=== PATIENT | male | born 1950 | race Caucasian/White ===

== ENCOUNTER → 2020-03-18 11:02 | Outpatient (BNVA) | payer MEDICARE, SELFPAY | PROVIDERS: PCP Internal Medicine; Referring Provider Internal Medicine; Visit Provider Nurse Practitioner Gerontology | DX: E11.42 Type 2 diabetes mellitus with diabetic polyneuropathy (principal); E11.3599 Type 2 diabetes mellitus with proliferative diabetic retinopathy without macular edema, unspecified eye; E11.21 Type 2 diabetes mellitus with diabetic nephropathy; R80.8 Other proteinuria; E78.5 Hyperlipidemia, unspecified; I10 Essential (primary) hypertension; Z79.4 Long term (current) use of insulin | CPT/HCPCS: 82947; 99214 ==

== ENCOUNTER → 2020-04-17 13:56 | Outpatient (BNVA) | payer MEDICARE, SELFPAY | PROVIDERS: PCP Internal Medicine; Visit Provider Urology | DX: R35.1 Nocturia (principal); E11.29 Type 2 diabetes mellitus with other diabetic kidney complication; E11.42 Type 2 diabetes mellitus with diabetic polyneuropathy; E11.3599 Type 2 diabetes mellitus with proliferative diabetic retinopathy without macular edema, unspecified eye; E78.5 Hyperlipidemia, unspecified; I10 Essential (primary) hypertension; E55.9 Vitamin D deficiency, unspecified; Z88.8 Allergy status to other drugs, medicaments and biological substances | CPT/HCPCS: 81002; 99202 ==

== ENCOUNTER → 2020-05-15 14:43 | Outpatient (BNVA) | payer MEDICARE, SELFPAY | PROVIDERS: PCP Internal Medicine; Visit Provider Urology | DX: Z76.89 Persons encountering health services in other specified circumstances (principal) | CPT/HCPCS: Q3014 ==

== ENCOUNTER → 2020-06-03 11:09 | Outpatient (BNVA) | payer MEDICARE, SELFPAY | PROVIDERS: PCP Internal Medicine; Visit Provider Nurse Practitioner Gerontology | DX: E11.42 Type 2 diabetes mellitus with diabetic polyneuropathy (principal); E11.29 Type 2 diabetes mellitus with other diabetic kidney complication; R80.9 Proteinuria, unspecified; E78.5 Hyperlipidemia, unspecified; I10 Essential (primary) hypertension; Z79.4 Long term (current) use of insulin | CPT/HCPCS: 82947; 99212 ==

== ENCOUNTER → 2020-08-22 09:38 | Outpatient (BNVA) | payer MEDICARE, SELFPAY | PROVIDERS: PCP Internal Medicine; Visit Provider Nurse Practitioner Gerontology | DX: Z13.89 Encounter for screening for other disorder (principal) | CPT/HCPCS: Q3014 ==

== ENCOUNTER 2020-09-05 13:45 | Outpatient (REF) | payer MEDICARE, SELFPAY ==
[2020-09-05 16:36] LABS: Estimated Average Glucose 174 mg/dL; Hemoglobin A1c % 7.7 %
[2020-09-05 16:52] LABS: Alanine Aminotransferase 17 U/L (0-40); Albumin Level 4.5 g/dL (3.5-5.0); Alkaline Phosphatase 126 U/L (39-117); Anion Gap 15 (12-20); Aspartate Amino Transferase 17 U/L (5-37); Bilirubin Total 0.6 mg/dL (0.0-1.0); Blood Urea Nitrogen 16 mg/dL (9-16); Calcium 8.7 mg/dL (8.4-10.2); Carbon Dioxide 26 mmol/L (22-29); Chloride 106 mmol/L (96-108); Cholesterol 132 mg/dL; Estimated Glomerular Filt Rate > 60; Glucose Fasting 112 mg/dL (60-99); HDL Cholesterol 39 mg/dL; LDL Cholesterol Calculated 71 mg/dl; Potassium 4.2 mmol/L (3.3-5.1); Sodium 143 mmol/L (135-145); Triglycerides 110 mg/dL
[2020-09-05 16:53] LABS: Creatinine Urine 192.05 mg/dL; Microalbum/Creatinine Ratio Ur 27.5 ug/mg cr
[2020-09-05 17:14] LABS: Prostate Specific Antigen 0.83 ng/mL (<0.05-4.0)
== END 2020-09-05 13:46 | disposition home or self-care (01) ==
LOC: HO.HMGCLDS 13:45
PROVIDERS: Urology; PCP Internal Medicine; Visit Provider Nurse Practitioner Gerontology
DX: E11.42 Type 2 diabetes mellitus with diabetic polyneuropathy (principal); R35.1 Nocturia; Z79.4 Long term (current) use of insulin
CPT/HCPCS: 36415; 80053; 80061; 82043; 83036; 84153

== ENCOUNTER 2020-09-11 13:27 | Outpatient (REF) | payer MEDICARE, SELFPAY ==
[2020-09-15 14:21] LABS: Alk.Phos Iso. Macrohepatic 0 % (<=0); Alk.Phos Isoenzymes Bone 36 % (28-66); Alk.Phos Isoenzymes Intest 0 % (1-24); Alk.Phos Isoenzymes Liver 64 % (25-69); Alk.Phos Isoenzymes Placental 0 % (<=0); Alk.Phos Isoenzymes Total 106 U/L (35-144)
== END 2020-09-11 13:28 | disposition home or self-care (01) ==
LOC: HO.HMGCLDS 13:27
PROVIDERS: PCP Internal Medicine; Visit Provider Nurse Practitioner Gerontology
DX: R74.8 Abnormal levels of other serum enzymes (principal)
CPT/HCPCS: 36415; 84080

== ENCOUNTER → 2020-11-26 11:22 | Outpatient (BNVA) | payer MEDICARE, SELFPAY | PROVIDERS: PCP Internal Medicine; Visit Provider Nurse Practitioner Gerontology | DX: E11.42 Type 2 diabetes mellitus with diabetic polyneuropathy (principal); E11.29 Type 2 diabetes mellitus with other diabetic kidney complication; E78.5 Hyperlipidemia, unspecified; R80.8 Other proteinuria; I10 Essential (primary) hypertension; Z79.4 Long term (current) use of insulin | CPT/HCPCS: 82947; 99212 ==

== ENCOUNTER → 2021-01-15 14:50 | Outpatient (BNVA) | payer MEDICARE, SELFPAY | PROVIDERS: PCP Internal Medicine; Visit Provider Nurse Practitioner Gerontology | DX: E11.42 Type 2 diabetes mellitus with diabetic polyneuropathy (principal); E11.29 Type 2 diabetes mellitus with other diabetic kidney complication; E78.5 Hyperlipidemia, unspecified; I10 Essential (primary) hypertension; R80.8 Other proteinuria; Z79.4 Long term (current) use of insulin | CPT/HCPCS: 82947; 99212 ==

== ENCOUNTER → 2021-05-16 09:27 | Outpatient (BNVA) | payer MEDICARE, SELFPAY | PROVIDERS: PCP Internal Medicine; Visit Provider Urology | DX: R35.1 Nocturia (principal); N32.0 Bladder-neck obstruction | CPT/HCPCS: 51798; 99212 ==

== ENCOUNTER 2021-05-28 13:06 | Outpatient (REF) | payer MEDICARE, SELFPAY ==
[2021-05-28 14:08] LABS: Estimated Average Glucose 169 mg/dL; Hemoglobin A1c % 7.5 %
== END 2021-05-28 13:07 | disposition home or self-care (01) ==
LOC: HO.HMGCLDS 13:06
PROVIDERS: PCP Internal Medicine; Visit Provider Nurse Practitioner Gerontology
DX: E11.42 Type 2 diabetes mellitus with diabetic polyneuropathy (principal); Z79.4 Long term (current) use of insulin
CPT/HCPCS: 36415; 83036

== ENCOUNTER → 2021-07-16 10:55 | Outpatient (BNVA) | payer MEDICARE, SELFPAY | PROVIDERS: PCP Internal Medicine; Visit Provider Nurse Practitioner Gerontology | DX: E11.42 Type 2 diabetes mellitus with diabetic polyneuropathy (principal); E11.29 Type 2 diabetes mellitus with other diabetic kidney complication; E78.5 Hyperlipidemia, unspecified; I10 Essential (primary) hypertension; R80.8 Other proteinuria; Z79.4 Long term (current) use of insulin | CPT/HCPCS: 82947; 99212 ==

== ENCOUNTER → 2021-08-14 09:24 | Outpatient (BNVA) | payer MEDICARE, SELFPAY | PROVIDERS: PCP Internal Medicine; Referring Provider Internal Medicine; Visit Provider Internal Medicine Cardiovascular Disease | DX: R07.89 Other chest pain (principal); R00.2 Palpitations | CPT/HCPCS: 93005; 99202 ==

== ENCOUNTER 2021-09-02 11:27 | Outpatient (REF) | payer MEDICARE, SELFPAY | END 2021-09-02 11:28 | disposition home or self-care (01) | LOC: HO.US 11:27 | PROVIDERS: PCP Internal Medicine; Visit Provider Urology | DX: Z13.89 Encounter for screening for other disorder (principal) ==

== ENCOUNTER 2021-09-10 11:20 | Outpatient (REF) | payer MEDICARE, SELFPAY ==
--- NOTE | ~2021-09-10 | US_ITS ---
EXAMINATION: US PELVIS LIMITED (BLADDER) CLINICAL INFORMATION: Poor urinary stream. COMPARISON: CT abdomen and pelvis without contrast 09/18/2019. TECHNIQUE: Real-time imaging of the bladder. FINDINGS: BLADDER: Well distended and normal. Bilateral ureteral jets are demonstrated. Prevoid bladder volume is 364 mL. Postvoid bladder volume is 52.3 mL. ADDITIONAL FINDINGS: The prostate measures 19.7 mL. US/US bladder IMPRESSION: Small postvoid residual bladder volume with normal bilateral ureteral jets.
== END 2021-09-10 11:21 | disposition home or self-care (01) ==
LOC: HO.HMGCX 11:20
PROVIDERS: PCP Internal Medicine; Visit Provider Urology
DX: R39.12 Poor urinary stream (principal); R35.1 Nocturia
CPT/HCPCS: 76857

== ENCOUNTER → 2021-09-16 09:48 | Outpatient (BNVA) | payer MEDICARE, SELFPAY | PROVIDERS: PCP Internal Medicine; Visit Provider Urology | DX: R35.1 Nocturia (principal); N32.0 Bladder-neck obstruction | CPT/HCPCS: Q3014 ==

== ENCOUNTER → 2021-09-23 08:25 | Outpatient (REF) | payer MEDICARE, SELFPAY ==
--- NOTE | 2021-09-23 08:31 | HM_ITS ---
Conclusion: 1. Patient was monitored for total period of 11 days and 3 hours 2. Baseline rhythm is normal sinus with average heart of 77 beats per minute 3. No significant pauses or bradycardia 4. One 3 beat episode of VT noted 5. Six short episodes of supraventricular tachycardia longest lasting 8 beats 6. Rare PVCs and PACs 7. No patient reported events MTDD
--- NOTE | 2021-09-23 08:31 | CA_ITS ---
Transthoracic Echocardiogram Patient (Last, First, Middle): Davin Baca J Gender: Male Date of : 1950 Age: 71 Procedure Date: 09/23/2021 Procedure Type: Transthoracic Echocardiogram Location: OP Height: 182.88 cm Weight: 92.99 kg BSA: 2.15 m2 Heart Rate: bpm BP: 146 / 70 mmHg Communication Instructor: EMERITA Referring MD: Federico Paris MD Symptoms: R00.2 - Palpitations Study Quality: Fair ECG Rhythm: Sinus Conclusions: - The left ventricular systolic function is normal. The visually estimated ejection fraction is between 65-70%. - No obvious valvular pathology seen on this study. Findings Left Ventricle Normal left ventricular cavity size. There is mildly increased left ventricular wall thickness. The left ventricular systolic function is normal. The visually estimated ejection fraction is between 65-70%. There is no evidence of regional wall motion abnormalities. Diastolic function is normal for age. Right Ventricle Normal right ventricular cavity size and systolic function. Atria Both atria are normal in size. Aortic Valve There is a normal trileaflet aortic valve. There is no aortic valve stenosis. There is no aortic valve regurgitation. Mitral Valve There is mild anterior mitral leaflet thickening. There is trace mitral valve regurgitation. There is no mitral valve stenosis. Pulmonic Valve The pulmonic valve is likely normal. Tricuspid Valve Normal tricuspid valve structure. There is trace tricuspid valve regurgitation. The pulmonary artery systolic pressure is normal. Great Vessels The aortic annulus, sinuses of valsalva, and asc aorta are normal in size. Venous The inferior vena cava is mildly dilated and collapses greater than 50% with inspiration. Pericardium/Pleural There is no evidence of pericardial effusion. Prior Study Comparison No prior study available for comparison. Recommendations, Care & Conclusions No obvious valvular pathology seen on this study. Measurements 2D Linear Measurements IVSd: 1.26 0.6-0.9/0.6-1.0 cm LVIDd: 4.61 3.9-5.3/4.2-5.9 cm LVIDd Index: 2.14 2.4-3.2/2.2-3.1 cm/m2 LVIDs: 2.76 2.0-3.6 cm LVPWd: 1.07 0.7-1.1 cm Ao Root: 3.80 2.1-3.5 cm LA Diam: 3.40 2.7-3.8/3.0-4.0 cm LAIDs Index: 1.58 1.5-2.3 cm/m2 LV Mass: 245.73 67-162/88-224 g LV Mass Index: 114.30 43-95/49-115 g/m2 LVOT Diam: 2.10 3.0+(-)1.3 cm 2D Systolic Function EF 4C: 63.30 >55% Mitral Valve MV Pk E: 0.86 MV PK A: 0.91 MV Decel Time: 250.00 E/A: 0.90 E'Lateral: 7.29 E'Medial: 6.96 E/E' Med: 12.30 E/E' Lat: 11.80 PHT: 73.00 MVA PHT: 3.01 Decel Canadian: 3.43 Aortic Valve AoV Pk Ken: 1.14 AoV Pk Grad: 5.00 LVOT LVOT Pk Ken: 1.04 LVOT Mn Ken: 0.69 LVOT VTI: 0.25 LVOT Pk Grad: 4.00 LVOT Mn Grad: 2.00 LVOT Diam: 2.10 LVOT Area: 3.46 Diastolic Function MV Pk E: 0.86 MV Pk A: 0.91 E/A: 0.90 E'Medial: 6.96 E/E' Med: 12.30 E' Laterial: 7.29 E/E' Lat: 11.80 Right Ventricle TAPSE (mm): 2.67 TVS' Ken: 15.60 Tricuspid Valve RA Press: 8.00 Great Vessels Aorta Ao Root-2D: 3.80 2.0-3.7 cm Sinus of Valsalva: 3.80 2.0-3.5 cm Ao Asc: 3.60 2.1-3.4 cm Updated in Other Vendor System with Status of Final Nico Virgen MD electronically signed on 09/23/2021 12:25:03 PM with status of Final
== END ==
LOC: HO.CARD 08:25
PROVIDERS: Visit Provider Internal Medicine Cardiovascular Disease
DX: R00.2 Palpitations (principal)
CPT/HCPCS: 93246; 93306

== ENCOUNTER → 2021-09-24 07:58 | Outpatient (REF) | payer MEDICARE, SELFPAY ==
--- NOTE | 2021-09-24 08:02 | CA_ITS ---
Acquisition Time: 2021-09-24 08:22:15 Total Exercise Time: 00:03:07 Test Indications: Chest Pain Medications: ALFUZOSIN ASA DICYCLOMINE LOSARTAN METFORMIN REPAGLINIDE SIMVASTATIN Protocol: CHIP Max HR: 131 BPM 87% of Pred: 150 BPM Max BP: 160/070 mmHG Max Work Load: 4.7 METS Exercise stress test with exercise 3 min 7 sec of Chip protocol, achieving 87% MPHR, 4.6 METs, with moderate shortness of breath and fatigue, no chest or axilla discomfort, with request to stop exercise, with isolated PVC and one ventricular cuplet, with normotensive response to exercise, with borderline ST depression inferiorly at peak and in recovery. His shortness of breath resolved in recovery. Will order a pharmacological nuclear stress test for further evaluation. Test reviewed with Dr Hughes. Referred By: Federico Paris Overread By: ELODIA CANTU
== END ==
LOC: HO.CARD 07:58
PROVIDERS: Visit Provider Internal Medicine Cardiovascular Disease
DX: R07.89 Other chest pain (principal)
CPT/HCPCS: 93017

== ENCOUNTER 2021-09-30 12:20 | Outpatient (REF) | payer MEDICARE, SELFPAY ==
[2021-09-30 14:13] LABS: Alanine Aminotransferase 17 U/L (0-40); Albumin Level 4.3 g/dL (3.5-5.0); Alkaline Phosphatase 114 U/L (39-117); Anion Gap 15 (12-20); Aspartate Amino Transferase 16 U/L (5-37); Bilirubin Total 0.4 mg/dL (0.0-1.0); Blood Urea Nitrogen 19 mg/dL (9-16); Calcium 9.5 mg/dL (8.4-10.2); Carbon Dioxide 23 mmol/L (22-29); Chloride 105 mmol/L (96-108); Cholesterol 123 mg/dL; Estimated Glomerular Filt Rate 54; Glucose Fasting 169 mg/dL (60-99); HDL Cholesterol 38 mg/dL; LDL Cholesterol Calculated 67 mg/dl; Potassium 4.6 mmol/L (3.3-5.1); Sodium 138 mmol/L (135-145); Total Protein 6.8 g/dL (6.5-8.0); Triglycerides 94 mg/dL
[2021-09-30 14:28] LABS: Creatinine Urine 169.46 mg/dL; Microalbum/Creatinine Ratio Ur 73.7 ug/mg cr
[2021-10-01 05:07] LABS: LDL Cholesterol Direct 67 mg/dL (<100)
== END 2021-09-30 12:21 | disposition home or self-care (01) ==
LOC: HO.HMGCLDS 12:20
PROVIDERS: Nurse Practitioner Gerontology; Visit Provider Internal Medicine
DX: E11.29 Type 2 diabetes mellitus with other diabetic kidney complication (principal); E11.42 Type 2 diabetes mellitus with diabetic polyneuropathy; E78.5 Hyperlipidemia, unspecified; I10 Essential (primary) hypertension; Z79.4 Long term (current) use of insulin
CPT/HCPCS: 36415; 80053; 80061; 82043; 83721

== ENCOUNTER → 2021-10-14 08:50 | Outpatient (REF) | payer MEDICARE, SELFPAY ==
--- NOTE | ~2021-10-14 | NM_ITS ---
Lexiscan Myocardial perfusion study Indication: Chest discomfort, assess for coronary disease and ischemia Technique: The patient was brought in for a Lexiscan perfusion study on 10/14/2021 and was injected 0.4 mg of Lexiscan intravenously. Within a minute of this injection 35 mCi of sestamibi was given intravenously. Images were obtained using the SPECT gamma camera interlaced with the gating device. Images were obtained in supine position. Resting perfusion study was performed on 10/15/2021. Patient was administered 35 mCi of sestamibi intravenously at rest. Images were then obtained in supine position. Total DLP 104mGy-cm. Images were processed with the software and compared side to side in short axis, horizontal long axis and vertical long axis views. Findings: Raw acquisition was reviewed. The stress perfusion study showed mildly diminished tracer uptake in the basal part of inferior wall. There is improvement with CT attenuation correction suggestive of diaphragmatic attenuation artifact. The gated study shows normal LV systolic function with calculated LVEF of 50%. LV cavity is normal in size. The gated study shows normal wall thickening and contraction of segments. Resting study shows mildly diminished tracer uptake in the basal part of inferior wall. There is improvement with CT attenuation correction suggestive of diaphragmatic attenuation artifact. Gating at rest reveals normal wall motion with ejection fraction at 55%. The findings are consistent with fixed basal inferior defect likely from diaphragmatic attenuation artifact. No reversible defects. NM/NM cardiolite stress test Impression: 1. Myocardial perfusion imaging study shows normal myocardial perfusion. 2. Gated LVEF is 50% during stress and 55% during rest. 3. Transient ischemic dilatation not present. EKG component of the test reported separately.
--- NOTE | 2021-10-14 08:52 | CA_ITS ---
Acquisition Time: 2021-10-14 09:13:59 Total Exercise Time: 00:02:00 Test Indications: cp, abn ett Medications: see chart Protocol: LEXISCAN Max HR: 113 BPM 75% of Pred: 150 BPM Max BP: 138/060 mmHG Max Work Load: 1.6 METS Pharmacological stress test with Lexiscan injection, while walking slow on teadmill, without anginal symptoms, without arrythmia, with normotensive response to injection, with nondiagnositc EKG for ischemia. Nuclear images pending. Test reviewed with Dr Hughes. Referred By: Aide Beyer Overread By: AIDE BEYER
== END ==
LOC: HO.CARD 08:50
PROVIDERS: Visit Provider Nurse Practitioner Family
DX: R94.39 Abnormal result of other cardiovascular function study (principal); R07.89 Other chest pain
CPT/HCPCS: 78452; 93017; A9500; J0280; J2785

== ENCOUNTER → 2021-11-04 11:18 | Outpatient (BNVA) | payer MEDICARE, SELFPAY | PROVIDERS: PCP Internal Medicine; Visit Provider Nurse Practitioner Gerontology | DX: E11.42 Type 2 diabetes mellitus with diabetic polyneuropathy (principal); E11.29 Type 2 diabetes mellitus with other diabetic kidney complication; E78.5 Hyperlipidemia, unspecified; R80.8 Other proteinuria; I10 Essential (primary) hypertension; Z79.4 Long term (current) use of insulin | CPT/HCPCS: 82947; 83036; 99212 ==

== ENCOUNTER → 2021-11-11 13:50 | Outpatient (BNVA) | payer MEDICARE, SELFPAY | PROVIDERS: PCP Internal Medicine; Referring Provider Internal Medicine; Visit Provider Internal Medicine Cardiovascular Disease | DX: R00.2 Palpitations (principal) | CPT/HCPCS: 99212 ==

== ENCOUNTER → 2022-02-12 13:50 | Outpatient (BNVA) | payer MEDICARE, SELFPAY | PROVIDERS: PCP Internal Medicine; Visit Provider Internal Medicine Endocrinology, Diabetes & Metabolism | DX: E11.29 Type 2 diabetes mellitus with other diabetic kidney complication (principal); Z79.84 Long term (current) use of oral hypoglycemic drugs | CPT/HCPCS: 82947; 83036; 99212 ==

== ENCOUNTER → 2022-04-15 13:32 | Outpatient (BNVA) | payer MEDICARE, SELFPAY | PROVIDERS: PCP Internal Medicine; Visit Provider Urology | DX: N32.0 Bladder-neck obstruction (principal); R35.1 Nocturia | CPT/HCPCS: 51798; 99212 ==

== ENCOUNTER 2022-05-01 14:35 | Outpatient (REF) | payer MEDICARE, SELFPAY ==
--- NOTE | ~2022-05-01 | CT_ITS ---
EXAMINATION: CT CHEST SCREENING CLINICAL INFORMATION: Smoker. 55 pack year history. COMPARISON: None. TECHNIQUE: Multidetector volumetric CT imaging of the chest is performed without contrast using low dose technique. Additional 2D coronal and sagittal reformatted images and axial 3D maximum intensity projection (MIP) images are generated on the CT workstation. This CT examination was performed using dose optimization techniques as appropriate, variously including the following: *Automated exposure control *Adjustment of mA and/or kV according to patient size (this includes techniques or standardized protocols for targeted exams where dose is matched to indication/reason for exam; i.e. extremities or head) *Use of iterative reconstruction technique DLP: 58 mGy-cm FINDINGS: LUNGS: Emphysema. Mild biapical pleural and parenchymal scarring. 5 mm peripheral or subpleural right middle lobe nodule adjacent to the minor fissure axial image 252 series 5 probably representing a subpleural lymph node. 3 mm semisolid or heterogeneous right lower lobe nodule axial image 306 series 5. No endobronchial or endotracheal lesion. MEDIASTINUM: The mediastinum is normal. CORONARY ARTERY CALCIFICATION: Mild PLEURA: There is no pleural effusion. No pleural mass or thickening. AXILLA: No lymphadenopathy. UPPER ABDOMEN: Unremarkable OSSEOUS STRUCTURES: Degenerative changes of the spine. CT/CT lung screening IMPRESSION: Emphysema. Small pulmonary nodules. Mild coronary artery calcification. ASSESSMENT: Lung-RADS category 2: Benign RECOMMENDATION: Annual low-dose chest CT follow-up recommended.
== END 2022-05-01 14:36 | disposition home or self-care (01) ==
LOC: HO.CT 14:35
PROVIDERS: Visit Provider Physician Assistant Medical
DX: Z12.2 Encounter for screening for malignant neoplasm of respiratory organs (principal); F17.210 Nicotine dependence, cigarettes, uncomplicated
CPT/HCPCS: 71271; G0296

== ENCOUNTER 2022-06-01 13:47 | Outpatient (REF) | payer MEDICARE, SELFPAY ==
[2022-06-01 21:52] LABS: Anion Gap 18 (12-20); Blood Urea Nitrogen 27 mg/dL (9-16); Calcium 9.1 mg/dL (8.4-10.2); Carbon Dioxide 23 mmol/L (22-29); Chloride 103 mmol/L (96-108); Estimated Glomerular Filt Rate 57; Glucose Random 251 mg/dL (60-115); Potassium 4.4 mmol/L (3.3-5.1); Sodium 140 mmol/L (135-145)
== END 2022-06-01 13:48 | disposition home or self-care (01) ==
LOC: HO.HMGCLDS 13:47
PROVIDERS: Internal Medicine Endocrinology, Diabetes & Metabolism; PCP Internal Medicine; Visit Provider Internal Medicine
DX: E11.29 Type 2 diabetes mellitus with other diabetic kidney complication (principal)
CPT/HCPCS: 36415; 80048

== ENCOUNTER → 2022-06-02 08:50 | Outpatient (BNVA) | payer MEDICARE, SELFPAY | PROVIDERS: PCP Internal Medicine; Visit Provider Internal Medicine Endocrinology, Diabetes & Metabolism | DX: E11.29 Type 2 diabetes mellitus with other diabetic kidney complication (principal) | CPT/HCPCS: 82947; 83036; 99212 ==

== ENCOUNTER → 2022-09-01 10:08 | Outpatient (BNVA) | payer MEDICARE, SELFPAY | PROVIDERS: PCP Internal Medicine; Visit Provider Internal Medicine Endocrinology, Diabetes & Metabolism | DX: E11.29 Type 2 diabetes mellitus with other diabetic kidney complication (principal); E11.42 Type 2 diabetes mellitus with diabetic polyneuropathy; R80.9 Proteinuria, unspecified; I10 Essential (primary) hypertension; E78.5 Hyperlipidemia, unspecified; E55.9 Vitamin D deficiency, unspecified; Z79.4 Long term (current) use of insulin | CPT/HCPCS: 82947; 83036; 99212 ==

== ENCOUNTER → 2022-10-23 08:30 | Outpatient (BNVA) | payer MEDICARE, SELFPAY | PROVIDERS: PCP Internal Medicine; Visit Provider Urology | DX: R35.1 Nocturia (principal); E11.69 Type 2 diabetes mellitus with other specified complication; N52.1 Erectile dysfunction due to diseases classified elsewhere | CPT/HCPCS: 51798; 99212 ==

== ENCOUNTER 2022-10-31 13:49 | Outpatient (REF) | payer MEDICARE, SELFPAY | END 2022-10-31 13:50 | disposition home or self-care (01) | LOC: HO.HMGCLDS 13:49 | PROVIDERS: Visit Provider Urology | DX: N32.0 Bladder-neck obstruction (principal); Z12.5 Encounter for screening for malignant neoplasm of prostate | CPT/HCPCS: 36415; 84153 ==

== ENCOUNTER → 2022-11-18 10:30 | Outpatient (BNVA) | payer MEDICARE, SELFPAY | PROVIDERS: PCP Internal Medicine; Visit Provider Registered Nurse Diabetes Educator | DX: E11.69 Type 2 diabetes mellitus with other specified complication (principal); N52.1 Erectile dysfunction due to diseases classified elsewhere | CPT/HCPCS: 99211 ==

== ENCOUNTER 2022-11-25 13:00 | Outpatient (AMB) | payer MEDICARE, SELFPAY ==
--- NOTE | 2022-11-25 13:51 | MHC.PC.OV ---
Vital Signs 11/25/22 13:52 Height 6 ft Weight 213 lb BMI 28.9 BP 126/56 L Blood Pressure Location Rt brachial Position Sitting Pulse 73 Pulse Source Pulse Oximeter Pulse Oximetry (%) 96 Oxygen Delivery Method Room Air Intake Visit Reasons: Med review Intake Note: Pt is here today to f/u HTN Allergies lisinopril Allergy (Unknown, Verified 08/08/23 23:16) lip swelling and cough, dizzy Medication List - Last Reconciled 08/08/23 by Rochelle Gibbons MD amlodipine 5 mg PO QPM aspirin (Adult Low Dose Aspirin) 81 mg PO DAILY blood sugar diagnostic (Sphere 3d Verio test strips) As directed twice a day blood-glucose meter (Sphere 3d Verio Flex Start kit) As directed to test blood glucose two times a day dicyclomine 20 mg PO QID insulin glargine U-300 conc (Toujeo SoloStar U-300 Insulin) 22 units (0.0733 mL) subcut BEDTIME lancets (Sphere 3d Delica Lancets) As directed twice a day losartan 100 mg PO DAILY metformin 1,000 mg PO BID omega-3 fatty acids (Fish Oil Concentrate) 1,000 mg PO DAILY pen needle, diabetic (Droplet Pen Needle) USE DIRECTED ONE TIME DAILY simvastatin 20 mg PO BEDTIME tadalafil 5 mg PO DAILY 90 days Tobacco use date assessed: 11/25/22 Fall risk assessment: No Falls in past year Last assessed Fall Risk: 11/25/22 HPI Med review HPI Details 73-year-old male with diabetes mellitus currently followed by endocrine clinic, here today for follow-up on his hypertension and hyperlipidemia. He has been compliant with taking his medications, tries to stay active but not getting any regular exercise. He also states that he has not really been following recommended diet. Has been having intermittent episodes of flank pain mainly on left side, not accompanied by any urinary or stool incontinence, no dysuria no urinary frequency , urgency reported COUNTS INCLUDE 234 BEDS AT THE [facility] Medical History Personal history of nicotine dependence Chest discomfort Intermittent palpitations Hx of skin malignancy Essential (primary) hypertension Vitamin D deficiency, unspecified Dyslipidemia, goal LDL below 100 Proteinuria, unspecified Type 2 diabetes mellitus with other diabetic kidney complication (~2009) Type 2 diabetes mellitus with diabetic polyneuropathy (~2009) Surgical History History of colonoscopy History of esophagogastroduodenoscopy (EGD) History of left inguinal hernia repair History of appendectomy Family History Father No problems noted. Mother Diabetes Social History Household Members: Family Household Members Other:: Daughter Housing: House Patient Tobacco Use Status: Current someday Tobacco user Tobacco use type: Cigarette Years Smoked: (Onset 16yo, 1ppd x 55yrs, 50pyh, quit 2018) e-Cigarette/Vaping Use: Never Used Current occupational status: employed Cognitive needs: Yes Hearing needs: No Vision needs: No Questionnaire Thrive Questionnaire Date Thrive assessed: 07/01/21 AUDIT C Alcohol Use Questionnaire (AUDIT-C) 1. How often do you have a drink containing alcohol?: Never Total Score: 0 GRAYSON-7 AMB Questionnaire GRAYSON-7 Date GRAYSON - 7 assessed: 07/01/21 Source: Developed by Drs. Alexandro Claros, Rosa M Barnes, Demetri Agosto and colleagues, with an educational ely from [employer]. Review of Systems Const Denies chills, Denies fever(s) and Denies headache(s) ENT Denies dizziness, Denies headache(s) and Denies nasal congestion Card Denies chest pain, Denies rapid heart rate, Denies irregular heart rhythm, Denies claudication and Denies lightheadedness Resp Denies cough GI Denies abdominal pain and Denies heartburn Denies change in libido Musc Reports as per HPI Skin/Breast Denies lesions and Denies rash Neuro Denies dizziness and Denies headache(s) Psych Denies change in libido Endo Denies change in libido Huber/Lymph Reports no additional complaints Aller/Immun Reports no additional complaints Physical exam (Primary Care) Vital Signs: Last Vital Signs Pulse 73 11/25/22 13:52 BP 126/56 L 11/25/22 13:52 Pulse Ox 96 11/25/22 13:52 Oxygen Delivery Method Room Air 11/25/22 13:52 BMI result Body Mass Index 28.9 Tobacco/Smoking Status: Tobacco use Status Tobacco use date assessed 11/25/22 11/25/22 13:54 Patient Tobacco Use Status Current someday Tobacco 11/25/22 13:54 Tobacco use type Cigarette 11/25/22 13:54 e-Cigarette/Vaping Use Never Used 11/25/22 13:54 Thrive Assessment: Date of Thrive Assessment Date Thrive assessed 07/01/21 11/25/22 13:54 Const Other: it Orientation/consciousness: patient oriented x3 HENMT Face and sinus: Yes face symmetric Mouth: Normal oral and palatal mucosa present, oropharynx normal and moist mucous membranes Neck Neck: Yes full ROM, Yes no lymphadenopathy and Yes supple Resp Auscultation: clear to auscultation bilaterally Cardio Rate: regular rate Rhythm: regular rhythm Heart sounds: S1 normal heart sound present and S2 normal heart sound present GI Inspection: Yes obesity Palpation (GI): Soft to palpation, nontender and no guarding Auscultation: normal bowel sounds Back/Spine/Pelvis Thoracic/Lumbar Spine: straight leg raise negative bilaterally and paraspinal muscle tenderness on the left Skin General skin exam: no rashes or lesions noted Neuro General: patient oriented x3, gait normal, tone normal, moves all extremities, Normal light touch and pain sensation and no focal motor deficits Gait exam (Neuro): Normal gait present Extrem General: Yes full ROM, Yes no joint enlargement, Yes no clubbing, cyanosis or edema and Yes normal gait Assessment and Plan Assessment & Plan (1) Dyslipidemia, goal LDL below 100: Code(s): E78.5 - Hyperlipidemia, unspecified Plan: Fasting lipid panel ordered, currently on simvastatin 20 mg at bedtime. continue adherence to low-cholesterol diet and regular exercise, at least 30 minutes 3 to 4 times a week. Advised patient to make healthy food choices, eat more fruits, vegetables, whole grains, wild caught fish and low-fat dairy. Limit amount of meat and fried or fatty food products, as well as processed foods and fast foods. (2) Acute left flank pain: Code(s): R10.9 - Unspecified abdominal pain Plan: Ordered urinalysis with reflex culture and sensitivity with results still pending, rule out urinary tract infection versus muscle strain (3) Essential (primary) hypertension: Code(s): I10 - Essential (primary) hypertension Plan: Blood pressure at goal of less than 130/80. Continue with losartan and amlodipine at same dose. Reinforced importance of following a low sodium diet, getting regular exercise, and lowering stress levels. Stressed importance also of quitting smoking (4) Smoker unmotivated to quit: Code(s): F17.200 - Nicotine dependence, unspecified, uncomplicated Plan: Patient strongly advised to stop smoking, as smoking damages blood vessels, degenerative of joints and spine, damage to lungs and heart., predisposes to developing certain cancers like lung, breast, bladder, colon. Recommended to try decreasing cigarette use by 1-2 cigarettes a day. Advised to monitor what triggers are for smoking so that this can be discussed on the next office visit. We can discuss different options to quit smoking when ready. Had lung cancer screening done April [address] with benign findings on CT scan, repeat another low-dose CT scan April 2023 Orders: Orders Lipid Panel 11/25/22 I10 - Essential (primary) hypertension, E78.5 - Hyperlipidemia, unspecified, R10.9 - Unspecified abdominal pain Alanine Aminotransferase 11/25/22 I10 - Essential (primary) hypertension, E78.5 - Hyperlipidemia, unspecified, R10.9 - Unspecified abdominal pain Aspartate Amino Transferase 11/25/22 I10 - Essential (primary) hypertension, E78.5 - Hyperlipidemia, unspecified, R10.9 - Unspecified abdominal pain UA CC w/rflx Micro + Cult 11/25/22 I10 - Essential (primary) hypertension, E78.5 - Hyperlipidemia, unspecified, R10.9 - Unspecified abdominal pain Coding Level of Care Code Est Pt Level 4 (36310) Diagnoses Dyslipidemia, goal LDL below 100 E78.5 Acute left flank pain R10.9 Essential (primary) hypertension I10 Smoker unmotivated to quit F17.200
[2022-11-25 13:52] VITALS: BP 126/56; PULSE 73; O2SAT 96; BMI 28.9
== END 2022-11-25 15:05 | disposition home or self-care (01) ==
PROVIDERS: Visit Provider Internal Medicine
DX: E78.5 Hyperlipidemia, unspecified (principal); R10.9 Unspecified abdominal pain; I10 Essential (primary) hypertension; F17.200 Nicotine dependence, unspecified, uncomplicated
CPT/HCPCS: 99214

== ENCOUNTER 2022-11-25 14:19 | Outpatient (REF) | payer MEDICARE, SELFPAY ==
[2022-11-25 17:18] LABS: Appearance Urine Turbid; Color Urine Yellow; Glucose Urine UA 500 mg/dL (Negative); Leukocyte Esterase Urine Negative (Negative); Nitrite Urine Negative (Negative); PH 5.5 (5.0-9.0); Specific Gravity - Urine 1.025 (1.005-1.025); UMIC TRIGGER UACC YES; Urine Blood Negative (Negative); Urine Ketones Trace mg/dL (Negative); Urine Protein 30 (1+) mg/dL (Neg-Trace)
[2022-11-25 17:20] LABS: Bacteria Urine None Seen (None Seen); Hyaline Casts Urine 0-2 /LPF (0-2); RBC Urine 0-2 /HPF (0-2); Squamous Epithelial Cell Urine 0-2 /HPF (0-2); WBC Urine 0-5 /HPF (0-5)
[2022-11-25 17:23] LABS: Alanine Aminotransferase 13 U/L (0-40); Aspartate Amino Transferase 13 U/L (5-37); Cholesterol 146 mg/dL; HDL Cholesterol 38 mg/dL; LDL Cholesterol Calculated 76 mg/dl; Triglycerides 161 mg/dL
== END 2022-11-25 14:20 | disposition home or self-care (01) ==
LOC: HO.HMGCLDS 14:19
PROVIDERS: PCP Internal Medicine; Visit Provider Internal Medicine
DX: R10.9 Unspecified abdominal pain (principal); I10 Essential (primary) hypertension; E78.5 Hyperlipidemia, unspecified
CPT/HCPCS: 36415; 80061; 81001; 84450; 84460

== ENCOUNTER → 2022-12-02 10:43 | Outpatient (BNVA) | payer MEDICARE, SELFPAY | PROVIDERS: PCP Internal Medicine; Visit Provider Internal Medicine Endocrinology, Diabetes & Metabolism | DX: E11.29 Type 2 diabetes mellitus with other diabetic kidney complication (principal); Z79.4 Long term (current) use of insulin | CPT/HCPCS: 82947; 83036; 99212 ==

== ENCOUNTER 2023-01-12 12:14 | Outpatient (AMB) | payer MEDICARE, SELFPAY ==
--- NOTE | 2023-01-12 12:49 | MHC.AMDMED ---
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 Accompanied by: Self / Same As Patient Allergies lisinopril Allergy (Unknown, Verified 12/02/22 10:48) lip swelling and cough, dizzy HPI Comprehensive Diabetes Asmnt Most Recent Diabetes Results: Cholesterol 146 mg/dL 11/25/22 HDL Cholesterol 38 mg/dL 11/25/22 Triglycerides 161 mg/dL 11/25/22 AST 13 U/L (5-37) 11/25/22 ALT 13 U/L (0-40) 11/25/22 [facility] Medical History Chest discomfort Dyslipidemia, goal LDL below 100 Essential (primary) hypertension Hx of skin malignancy Intermittent palpitations Personal history of nicotine dependence Proteinuria, unspecified Type 2 diabetes mellitus with diabetic polyneuropathy (~2009) Type 2 diabetes mellitus with other diabetic kidney complication (~2009) Vitamin D deficiency, unspecified Surgical History History of appendectomy History of colonoscopy History of esophagogastroduodenoscopy (EGD) History of left inguinal hernia repair Family History Father No problems noted. Mother Diabetes Social History Household Members: Family Household Members Other:: Daughter Housing: House Patient Tobacco Use Status: Current someday Tobacco user Tobacco use type: Cigarette Years Smoked: (Onset 16yo, 1ppd x 55yrs, 50pyh, quit 2019) e-Cigarette/Vaping Use: Never Used Current occupational status: employed Cognitive needs: Yes Hearing needs: No Vision needs: No Assessment & Plan Assessment & Plan (1) Erectile dysfunction associated with type 2 diabetes mellitus: Code(s): E11.69 - Type 2 diabetes mellitus with other specified complication; N52.1 - Erectile dysfunction due to diseases classified elsewhere Plan: Learning objectives: The patient was provided with verbal and written education on the following topics as outlined below. Assess patient education level/literacy/barriers Patient questions/concerns, Patient reports cost of glucose sensor is too expensive. Patient's last A1c 10.5% on 12/02/2022 Patient is not interested in pursuing [facility] program for high cost of Trulicity Discussed with patient 3 things important for controlling glucose, maintaining meals between 45-60 g of carb, exercising, taking medication Patient denies missing medication Explained to patient it is difficult to assess medication eats with limited glucose data. Patient did not increase glucose testing after meals as discussed at last visit. Patient left visit. The patient met all learning objectives and was able to verbalize understanding and provide teach back of education topics discussed . The patient was provided with the opportunity to ask questions and all questions were answered. Topics covered in today?s session included: Medications (If applicable) ? Name of medication? Dosing/administration instructions? Mechanism of action? Potential side effects? Potential adverse reaction and appropriate treatment? Review onset, peak, duration Assess for concerns re: insurance coverage, cost, barriers to compliance Insulin/Injectables (If applicable) ? Storage/care of insulin? Injection sites? Site rotation? Onset, peak, duration ? Drawing up insulin? Injecting insulin/other injectables? Sharps disposal Continuous blood glucose monitoring (if applicable) ?Blood glucose targets and how you feel when your blood glucose is in and out of your target ranges. ?Monitoring and knowing your A1C. ?What can make blood glucose go up and down and preventing high and low blood glucose. ?Review of blood sugar targets in expected goal range and outside of expected goal range. ?Problem solving and preventing hyper/hypoglycemia. ?Sick day management of diabetes. ?Using blood sugar results in decision making process in managing diabetes. ?Patient was receptive to information provided and participated in the discussion. Asked?appropriate questions and demonstrated good understanding of the topics discussed.? ? Educational Materials: The patient was provided with the following written educational materials: Target Goal handout Smart Goal Assessment:? Pt met goal less than 25% New Smart Goal: Patient Response to instructions: Comprehension of Instructions: poor How confident they feel about making changes:poor Coding Level of Care Code Est Pt Level 1 (84287) Diagnoses Erectile dysfunction associated with type 2 diabetes mellitus E11.69; N52.1
== END 2023-01-12 12:50 | disposition home or self-care (01) ==
PROVIDERS: PCP Internal Medicine; Visit Provider Registered Nurse Diabetes Educator
DX: E11.69 Type 2 diabetes mellitus with other specified complication (principal); N52.1 Erectile dysfunction due to diseases classified elsewhere

== ENCOUNTER → 2023-01-12 12:14 | Outpatient (BNVA) | payer MEDICARE, SELFPAY | PROVIDERS: PCP Internal Medicine; Visit Provider Registered Nurse Diabetes Educator | DX: E11.42 Type 2 diabetes mellitus with diabetic polyneuropathy (principal); E11.29 Type 2 diabetes mellitus with other diabetic kidney complication; R80.9 Proteinuria, unspecified; N52.1 Erectile dysfunction due to diseases classified elsewhere | CPT/HCPCS: 99211 ==

== ENCOUNTER 2023-01-26 10:07 | Outpatient (AMB) | payer MEDICARE, SELFPAY ==
--- NOTE | 2023-01-26 10:15 | MHC.OFFVIS ---
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: 3M PSA/PVR(set) Intake Note: Patient is present for Follow Up PSA/PVR Urology Med: Tadalafil Antibiotic Allergy: None Blood Thinner: None [facility]: [facility] PVR: 10ml Allergies lisinopril Allergy (Unknown, Verified 01/26/23 10:16) lip swelling and cough, dizzy Medication List - Last Reconciled 01/26/23 by Jc Maldonado MD amlodipine 5 mg PO QPM aspirin (Adult Low Dose Aspirin) 81 mg PO DAILY blood sugar diagnostic (PerformYardTouch Verio test strips) As directed twice a day blood-glucose meter (Aero Glass Verio Flex Start kit) As directed to test blood glucose two times a day dicyclomine 20 mg PO QID insulin glargine U-300 conc (Toujeo SoloStar U-300 Insulin) 22 units (0.0733 mL) subcut BEDTIME lancets (Viewsteruch Delica Lancets) As directed twice a day losartan 100 mg PO DAILY metformin 1,000 mg PO BID omega-3 fatty acids (Fish Oil Concentrate) 1,000 mg PO DAILY pen needle, diabetic As directed one daily simvastatin 20 mg PO BEDTIME tadalafil 5 mg PO DAILY 90 days HPI HPI Comments History of Present Illness Details Davin is a pleasant male.? He is a patient of Dr. Gibbons. He is seen for the following urologic conditions - testicular swelling - lower urinary tract symptoms Follow-up for daily tadalafil PVR 10 cc Good response to daily tadalafil Improved nocturia Improved urinary control Happy with current result Lower urinary tract symptoms Prior medications alfuzosin Comorbidities include diabetes Bladder ultrasound 09/02 50 cc residual, 350cc PSA 09/01 0.8, 11/03 0.7 Testicular/Scotal orchalgia-swelling:? Prior testicular pain left side is ? Can continue using meloxicam on Celebrex as needed for his pain. ? Primary complaint of swelling, left, testicle(s). ? The symptoms started or were observed: Ongoing. ? Imaging includes testicular ultrasound - left mild hydrocele with epididymitis. ? Character of the pain is chronic. ? Based on imaging and exam diagnosis is most consistent with epididymitis. ? Prior therapy(ies) include use of anti-inflammatories [facility] Medical History Chest discomfort Dyslipidemia, goal LDL below 100 Essential (primary) hypertension Hx of skin malignancy Intermittent palpitations Personal history of nicotine dependence Proteinuria, unspecified Type 2 diabetes mellitus with diabetic polyneuropathy (~2009) Type 2 diabetes mellitus with other diabetic kidney complication (~2009) Vitamin D deficiency, unspecified Surgical History History of appendectomy History of colonoscopy History of esophagogastroduodenoscopy (EGD) History of left inguinal hernia repair Family History Father No problems noted. Mother Diabetes Social History Household Members: Family Household Members Other:: Daughter Housing: House Patient Tobacco Use Status: Current someday Tobacco user Tobacco use type: Cigarette Years Smoked: (Onset 16yo, 1ppd x 55yrs, 50pyh, quit 2018) e-Cigarette/Vaping Use: Never Used Current occupational status: employed Cognitive needs: Yes Hearing needs: No Vision needs: No Review of Systems Const Denies chills and Denies fever(s) Card Reports no additional complaints and Denies syncope Resp Denies cough GI Denies abdominal pain and Denies heartburn Reports as per HPI and Denies change in libido Neuro Denies syncope Psych Denies change in libido Endo Denies change in libido Physical Exam Const General: cooperative, healthy appearing, comfortable and no acute distress Orientation/consciousness: patient oriented x3 HEENT Face and sinus: Yes normal facial exam Mouth: moist mucous membranes Neck Neck: Yes normal visual inspection, Yes full ROM and Yes trachea midline Chest Chest palpation & inspection: normal inspection of the chest Resp Effort & Inspection: normal respiratory effort, able to speak in complete sentences and no respiratory distress GI Inspection: Yes normal to inspection Back/Spine/Pelvis Cervical Spine: normal cervical lordosis Thoracic/Lumbar Spine: thoracic and lumbar spine normal to inspection Skin General skin exam: no rashes or lesions noted Neuro General: patient oriented x3, gait normal, tone normal and moves all extremities Extrem General: Yes normal to inspection and Yes capillary refill normal Office Procedures Post Void Residual Post Residual Void Post Void Residual (PVR): 10 [id number] Void Residual by ultrasound Results AMB Urinalysis, Automated UA Leukoctes 0 Teresita/uL Last Edit by Angela Gutierrez, A on 01/26/23 10:21 UA Nitrite Negative Last Edit by Angela Gutierrez, RMA on 01/26/23 10:21 UA Urobilinogen 0.2 mg/dL Last Edit by Angela Gutierrez, A on 01/26/23 10:21 UA Protein 15 mg/dL Last Edit by Angela Gutierrez, A on 01/26/23 10:21 UA pH 5.0 Last Edit by Angela Gutierrez, RMA on 01/26/23 10:21 UA Blood 0 Papi/uL Last Edit by Angela Gutierrez, A on 01/26/23 10:21 UA Specific [place] 1.020 Last Edit by Angela Gutierrez, A on 01/26/23 10:21 UA Ketone Negative Last Edit by Angela Gutierrez, A on 01/26/23 10:21 UA Bilirubin 0 mg/dL Last Edit by Angela Gutierrez, A on 01/26/23 10:21 UA Glucose 1000 mg/dL Last Edit by Angela Gutierrez, A on 01/26/23 10:21 Results Reviewed Results Reviewed: Laboratory Last Values Urine pH (Auto) 5.0 01/26/23 10:17 Specific [place] (Auto) 1.020 01/26/23 10:17 Urine Protein (Auto) 15 mg/dL 01/26/23 10:17 Glucose (UA)(Auto) 1000 mg/dL 01/26/23 10:17 Urine Ketones (Auto) Negative 01/26/23 10:17 Urine Blood (Auto) 0 Papi/uL 01/26/23 10:17 Urine Nitrite (Auto) Negative 01/26/23 10:17 Urine Bilirubin (Auto) 0 mg/dL 01/26/23 10:17 Urine Urobilinogen (Auto) 0.2 mg/dL 01/26/23 10:17 Leukocyte Esterase (Auto) 0 Teresita/uL 01/26/23 10:17 Assessment & Plan Assessment & Plan (1) Type 2 diabetes mellitus with diabetic polyneuropathy: Onset Date: ~2009 Code(s): E11.42 - Type 2 diabetes mellitus with diabetic polyneuropathy Qualifiers: Diabetes mellitus long term acute care registered nurse insulin use: with long term acute care registered nurse use Qualified Code(s): E11.42 - Type 2 diabetes mellitus with diabetic polyneuropathy; Z79.4 - manager terminal (current) use of insulin (2) Bladder outlet obstruction: Code(s): N32.0 - Bladder-neck obstruction (3) Nocturia more than twice per night: Code(s): R35.1 - Nocturia Plan Six month follow-up PVR Orders: Orders AMB Urinalysis Automated Today Z13.9 - Encounter for screening, unspecified AMB Post Void Residual by ultrasound Today R35.1 - Nocturia Patient Instructions: Imaging studies, laboratory and physical exam results were discussed and reviewed in detail. No major barriers to patient understanding were identified. An opportunity to ask questions regarding the treatment plan was provided. All questions were answered. The patient expressed understanding and agreement with the above treatment plan. The patient is aware they should contact our office by phone for worsening of their current condition or the appearance of new urologic symptoms. Compliance is encouraged with any medications and followup testing that is ordered. It is a privilege to participate in the urologic care of your patient. If you have any questions or concerns regarding treatment for the above conditions, or other urologic issues, please do not hesitate to contact me. The office telephone contact is [phone]. This note is constructed using voice recognition software. While every effort has been made to ensure accuracy hospital television rental clerk errors may have been included. Yours sincerely, Dr Jc Maldonado MD, LANIE [facility] - Urology Providers of Expert, Compassionate Care for the Genitourinary System Coding Level of Care Code Est Pt Level 3 (96312) Diagnoses Type 2 diabetes mellitus with diabetic polyneuropathy E11.42; Z79.4 Diabetes mellitus usp insulin use: with usp use Bladder outlet obstruction N32.0 Nocturia more than twice per night R35.1 CPT Codes Post Residual Void - PVR CPT Code: 01822-Tdjd Void Residual by ultrasound ([id number])
== END 2023-01-26 10:43 | disposition home or self-care (01) ==
PROVIDERS: Visit Provider Urology
DX: E11.42 Type 2 diabetes mellitus with diabetic polyneuropathy (principal); Z79.4 Long term (current) use of insulin; N32.0 Bladder-neck obstruction; R35.1 Nocturia
CPT/HCPCS: 99213

== ENCOUNTER → 2023-01-26 10:07 | Outpatient (BNVA) | payer MEDICARE, SELFPAY | PROVIDERS: Visit Provider Urology | DX: N32.0 Bladder-neck obstruction (principal); R35.1 Nocturia; E11.42 Type 2 diabetes mellitus with diabetic polyneuropathy; Z79.4 Long term (current) use of insulin | CPT/HCPCS: 51798; 99212 ==

== ENCOUNTER 2023-04-06 09:49 | Outpatient (AMB) | payer MEDICARE, SELFPAY ==
[2023-04-06 10:04] VITALS: BP 122/52; PULSE 80; BMI 28.4
--- NOTE | 2023-04-06 10:04 | MHC.OFFVIS ---
Intake Vital Signs 04/06/23 10:04 Height 6 ft Weight 209 lb 3.499 oz BMI 28.4 BP 122/52 L Blood Pressure Location Lt brachial Position Sitting Pulse 80 Pulse Source Pulse Oximeter Intake Visit Reasons: f/u Type 2 DM Intake Note: Patient present today to follow up on Type 2 Diabetes Mellitus. Last Diabetic Eye exam: 06/2022 Last Podiatry Visit: None Random Glucose: 245 mg/dl HgA1C: 10.8% Allergies lisinopril Allergy (Unknown, Verified 01/26/23 10:16) lip swelling and cough, dizzy HPI HPI Comments History of Present Illness Details Patient is a 73 yo male with DM type 2 diagnosed around 2009, who presents for management of diabetes. In the past he had been given the [employer] cares form to fill and had not followed through on it. PMH: HLD, DM2, Micro and macrovascular complications: + mild proliferative retinopathy, + nephropathy, +neuropathy, Diabetes medications: Toujeo 22 units, metformin 1G BiD, (prescribed Trulicity but patient states can't afford). Farxiga 5 mg didn't start QD. Was out of metformin but having diarrhea Symptoms reported: denies Hypoglycemia: rare Hyperglycemia: +polyuria, + nocturia (every 2-3 hours), denies polydypsia Blood glucose monitoring: Glucometer download shows patient is checking his point of care once a day. Average glucose is387 with range of 256-hi. 0% of blood sugars are in range with 100% hyperglycemia and no hypoglycemia Physical activity: Walks about 3/4 - 1 mile most days Eye exam: -last exam 06/2022 no retinopathy. 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 Mother Diabetes Social History Household Members: Family Household Members Other:: Daughter Housing: House Patient Tobacco Use Status: Current someday Tobacco user Tobacco use type: Cigarette Years Smoked: (Onset 16yo, 1ppd x 55yrs, 50pyh, quit 2019) e-Cigarette/Vaping Use: Never Used Current occupational status: employed Cognitive needs: Yes Hearing needs: No Vision needs: No Physical Exam Vital Signs: Last Vital Signs Pulse 80 04/06/23 10:04 BP 122/52 L 04/06/23 10:04 BMI result Body Mass Index 28.4 Absence of Cushingoid features. Absence of acromegalic features. Neck exam reveals nl size thyroid about 15 gms. No thyroid nodules palpable. No carotid bruits present. Lungs CTA. Heart S1 S2, Reg R/R. No M/R/ G. Skin exam reveals absence of vitiligo or acanthosis nigricans. Abdominal exam reveals Soft NT/ND with NA BS. No organomegaly present. Neck Other: . Extrem Other: Visual exam of foot performed. No ulcerations or open lesions. No onchomycosis, no callouses.Pulses 2 + distally Sensation intact to monofilament exam. Vibratory sensation sensed is decreased with 128 Hz tuning fork Results AMB Hemoglobin A1c AMB Hemoglobin A1c 10.8 % Last Edit by Lauren Rosenthal on 04/06/23 10:24 Results Reviewed Results Reviewed: 04/06/23 10:12 Glucose, Whole Blood Routine Laboratory Last Values Glucose (Clinic) 245 mg/dL (60-115) H 04/06/23 10:12 Hgb A1c (Clinic) 10.8 % (4.0-6.0) H 04/06/23 10:22 Assessment & Plan Assessment & Plan (1) Type 2 diabetes mellitus with other diabetic kidney complication: Onset Date: ~2009 Code(s): E11.29 - Type 2 diabetes mellitus with other diabetic kidney complication Plan: This is 72-year-old white male with a history of type 2 diabetes being treated metformin and basal insulin with poor glycemic control and known microvascular complications namely retinopathy, neuropathy and CKD. Plan is to have the patient check his point cares pre and post meals. . He would be a good candidate for Dexcom and is now agreeing to safety and occupational health manager with Dexcom G6 . Once sensors in place, could either consider adding a G LP 1 like Trulicity or Mounjaro or could add prandial insulin once we have more data point per We also went over the relationship between poor glycemic control and development and progression of complications. Orders: Orders AMB Hemoglobin A1c Today E11.29 - Type 2 diabetes mellitus with other diabetic kidney complication Coding Level of Care Code Est Pt Level 4 (61259) Diagnoses Type 2 diabetes mellitus with other diabetic kidney complication E11.29
[2023-04-06 10:17] LABS: Glucose, Whole Blood 245 mg/dL (60-115)
== END 2023-04-06 10:39 | disposition home or self-care (01) ==
PROVIDERS: PCP Internal Medicine; Visit Provider Internal Medicine Endocrinology, Diabetes & Metabolism
DX: E11.29 Type 2 diabetes mellitus with other diabetic kidney complication (principal)
CPT/HCPCS: 99214

== ENCOUNTER → 2023-04-06 09:49 | Outpatient (BNVA) | payer MEDICARE, SELFPAY | PROVIDERS: PCP Internal Medicine; Visit Provider Internal Medicine Endocrinology, Diabetes & Metabolism | DX: E11.29 Type 2 diabetes mellitus with other diabetic kidney complication (principal) | CPT/HCPCS: 82947; 83036; 99212 ==

== ENCOUNTER 2023-07-28 09:13 | Outpatient (REF) | payer MEDICARE, SELFPAY ==
[2023-07-28 11:06] LABS: Creatinine Urine 138.51 mg/dL; Microalbum/Creatinine Ratio Ur 41.8 ug/mg cr (<30)
== END 2023-07-28 09:14 | disposition home or self-care (01) ==
LOC: HO.LAB 09:13
PROVIDERS: PCP Internal Medicine; Visit Provider Internal Medicine Endocrinology, Diabetes & Metabolism
DX: E11.42 Type 2 diabetes mellitus with diabetic polyneuropathy (principal); E11.29 Type 2 diabetes mellitus with other diabetic kidney complication; Z79.4 Long term (current) use of insulin
CPT/HCPCS: 82043; 82570; 82947; 83036; 99212

== ENCOUNTER 2023-07-28 10:22 | Outpatient (AMB) | payer MEDICARE, SELFPAY ==
--- NOTE | 2023-07-28 10:30 | A.OFFVIS_ITS ---
Intake Vital Signs 07/28/23 10:31 Height 6 ft Weight 213 lb 13.574 oz BMI 29.0 BP 120/58 L Blood Pressure Location Lt brachial Position Sitting Pulse 68 Pulse Source Pulse Oximeter Intake Visit Reasons: [id number] Intake Note: Patient presents today to follow up on D2MT. Last Diabetic Eye exam: 07/28/23 Last Podiatry Visit: None Random Glucose: 302 mg/dl HgA1c: 11.6% Warehouse Technician Required: No Accompanied by: Self / Same As Patient Allergies lisinopril Allergy (Unknown, Verified 07/28/23 10:49) lip swelling and cough, dizzy HPI HPI Comments History of Present Illness Details Patient is a 73 yo male with DM type 2 diagnosed around 2009, who presents for management of diabetes. PMH: HLD, DM2, Micro and macrovascular complications: + mild proliferative retinopathy, + nephropathy, +neuropathy, Diabetes medications: Toujeo 22 units, metformin 1G QD having diaarhea , (prescribed Trulicity but patient states can't afford). Farxiga 5 mg didn't start QD. Symptoms reported: denies Hypoglycemia:no Hyperglycemia: +polyuria, + nocturia (every 2-3 hours), denies polydypsia Blood glucose monitoring: Glucometer download shows patient is checking his po int of care once a day. Average glucose is318 with range of 178-531. 5% of blood sugars are in range with 95% hyperglycemia and no hypoglycemia Physical activity: Walks about 3/4 - 1 mile most days Eye exam: -last exam 06/2022 has appt 08/2023 no retinopathy. 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 Mother Diabetes Social History Household Members: Family Household Members Other:: Daughter Housing: House Patient Tobacco Use Status: Current someday Tobacco user Tobacco use type: Cigarette Years Smoked: (Onset 16yo, 1ppd x 55yrs, 50pyh, quit 2019) e-Cigarette/Vaping Use: Never Used Current occupational status: employed Cognitive needs: Yes Hearing needs: No Vision needs: No Physical Exam Absence of Cushingoid features. Absence of acromegalic features. Neck exam reveals nl size thyroid about 15 gms. No thyroid nodules palpable. No carotid bruits present. Lungs CTA. Heart S1 S2, Reg R/R. No M/R/ G. Skin exam reveals absence of vitiligo or acanthosis nigricans. Abdominal exam reveals Soft NT/ND with NA BS. No organomegaly present. Neck Other: . Extrem Other: Visual exam of foot performed. No ulcerations or open lesions. No onchomycosis, no callouses.Pulses 2 + distally Sensation intact to monofilament exam. Vibratory sensation sensed is decreased with 128 Hz tuning fork Assessment & Plan Assessment & Plan (1) Type 2 diabetes mellitus with other diabetic kidney complication: Onset Date: ~2009 Code(s): E11.29 - Type 2 diabetes mellitus with other diabetic kidney complication Plan: This is 73-year-old white male with a history of type 2 diabetes being treated metformin and basal insulin with poor glycemic control and known microvascular complications namely retinopathy, neuropathy and CKD. Plan is to have the patient check his point cares pre and post meals. . He would be a good candidate for Dexcom and he was supposed to start sensor but did not . He is now agreeing to starting a Dexcom G6 Once sensors in place, could either consider adding a G LP 1 like Trulicity or Mounjaro or could add prandial insulin once we have more data point per We also went over the relationship between poor glycemic control and development and progression of complications. I did tell him that he needs to start the sensor and meet with perioperative educator so that we can make some substantial headway to his treatment . Without the above steps, control the diabetes with virtually impossible and explained this to him Coding Level of Care Code Est Pt Level 4 (75942) Diagnoses Type 2 diabetes mellitus with other diabetic kidney complication E11.29
[2023-07-28 10:31] VITALS: BP 120/58; PULSE 68; BMI 29.0
[2023-07-28 10:43] LABS: Glucose, Whole Blood 302 mg/dL (60-115)
== END 2023-07-28 10:56 | disposition home or self-care (01) ==
PROVIDERS: PCP Internal Medicine; Visit Provider Internal Medicine Endocrinology, Diabetes & Metabolism
DX: E11.29 Type 2 diabetes mellitus with other diabetic kidney complication (principal)
CPT/HCPCS: 99214

== ENCOUNTER 2023-09-08 14:50 | Outpatient (AMB) | payer MEDICARE, SELFPAY ==
--- NOTE | 2023-09-08 15:13 | A.OFFVIS_ITS ---
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: 6M PVR Intake Note: Patient presents today for a follow up and PVR Meds- Tadalafil Allergies to Antibiotic- No Known Allergies Blood Thinner- Aspirin Post Void Residual: 143ml Patient Symptoms: None Ward Service Supervisor Required: No Accompanied by: Self / Same As Patient Allergies lisinopril Allergy (Unknown, Verified 09/08/23 15:28) lip swelling and cough, dizzy HPI HPI Comments History of Present Illness Details Davin is a pleasant male.? He is a patient of Dr. Gibbons. He is seen for the following urologic conditions - testicular swelling - lower urinary tract symptoms Follow-up for daily tadalafil PVR 140 cc Current urinary performance Has had increased urgency and frequency secondary to poor diabetic control We stressed diabetic control Has had recent refill Six-month follow-up PVR and UA Lower urinary tract symptoms Current medications tadalafil 5 mg daily Prior medications alfuzosin Comorbidities include diabetes Bladder ultrasound 09/02 50 cc residual, 350cc PSA 09/01 0.8, 11/03 0.7 Testicular/Scotal orchalgia-swelling:? Prior testicular pain left side is ? Can continue using meloxicam on Celebrex as needed for his pain. ? Primary complaint of swelling, left, testicle(s). ? The symptoms started or were observed: Ongoing. ? Imaging includes testicular ultrasound - left mild hydrocele with epididymitis. ? Character of the pain is chronic. ? Based on imaging and exam diagnosis is most consistent with epididymitis. ? Prior therapy(ies) include use of anti-inflammatories [facility] Medical History Personal history of nicotine dependence Chest discomfort Intermittent palpitations Hx of skin malignancy Essential (primary) hypertension Vitamin D deficiency, unspecified Dyslipidemia, goal LDL below 100 Proteinuria, unspecified Type 2 diabetes mellitus with other diabetic kidney complication (~2009) Type 2 diabetes mellitus with diabetic polyneuropathy (~2009) Surgical History History of colonoscopy History of esophagogastroduodenoscopy (EGD) History of left inguinal hernia repair History of appendectomy Family History Father No problems noted. Mother Diabetes Social History Household Members: Family Household Members Other:: Daughter Housing: House Patient Tobacco Use Status: Current someday Tobacco user Tobacco use type: Cigarette Years Smoked: (Onset 16yo, 1ppd x 56yrs, 50pyh, quit 2018) e-Cigarette/Vaping Use: Never Used Current occupational status: employed Cognitive needs: Yes Hearing needs: No Vision needs: No Review of Systems Const Denies chills and Denies fever(s) Card Reports no additional complaints and Denies syncope Resp Denies cough GI Denies abdominal pain and Denies heartburn Reports as per HPI and Denies change in libido Neuro Denies syncope Psych Denies change in libido Endo Denies change in libido Physical Exam Const General: cooperative, healthy appearing, comfortable and no acute distress Orientation/consciousness: patient oriented x3 HEENT Face and sinus: Yes normal facial exam Mouth: moist mucous membranes Neck Neck: Yes normal visual inspection, Yes full ROM and Yes trachea midline Chest Chest palpation & inspection: normal inspection of the chest Resp Effort & Inspection: normal respiratory effort, able to speak in complete sentences and no respiratory distress GI Inspection: Yes normal to inspection Back/Spine/Pelvis Cervical Spine: normal cervical lordosis Thoracic/Lumbar Spine: thoracic and lumbar spine normal to inspection Skin General skin exam: no rashes or lesions noted Neuro General: patient oriented x3, gait normal, tone normal and moves all extremities Extrem General: Yes normal to inspection and Yes capillary refill normal Office Procedures Post Void Residual Post Residual Void Post Void Residual (PVR): 143 [id number] Void Residual by ultrasound Assessment & Plan Assessment & Plan (1) Erectile dysfunction associated with type 2 diabetes mellitus: Code(s): E11.69 - Type 2 diabetes mellitus with other specified complication; N52.1 - Erectile dysfunction due to diseases classified elsewhere Plan Six-month follow-up PVR and UA Orders: Orders AMB Post Void Residual by ultrasound Today R33.9 - Retention of urine, unspecified Patient Instructions: Imaging studies, laboratory and physical exam results were discussed and rev iewed in detail. No major barriers to patient understanding were identified. An opportunity to ask questions regarding the treatment plan was provided. All questions were answered. The patient expressed understanding and agreement with the above treatment plan. The patient is aware they should contact our office by phone for worsening of their current condition or the appearance of new urologic symptoms. Compliance is encouraged with any medications and followup testing that is ordered. It is a privilege to participate in the urologic care of your patient. If you have any questions or concerns regarding treatment for the above conditions, or other urologic issues, please do not hesitate to contact me. The office telephone contact is [phone]. This note is constructed using voice recognition software. While every effort has been made to ensure accuracy grocery cashier errors may have been included. Yours sincerely, Dr Jc Maldonado MD, LANIE [facility] - Urology Providers of Expert, Compassionate Care for the Genitourinary System Coding Level of Care Code Est Pt Level 4 (15504) Diagnoses Erectile dysfunction associated with type 2 diabetes mellitus E11.69; N52.1 CPT Codes Post Residual Void - PVR CPT Code: 28760-Fvpv Void Residual by ultrasound ([id number])
== END 2023-09-08 16:07 | disposition home or self-care (01) ==
PROVIDERS: PCP Internal Medicine; Visit Provider Urology
DX: E11.69 Type 2 diabetes mellitus with other specified complication (principal); N52.1 Erectile dysfunction due to diseases classified elsewhere; R39.15 Urgency of urination
CPT/HCPCS: 99213

== ENCOUNTER → 2023-09-08 14:50 | Outpatient (BNVA) | payer MEDICARE, SELFPAY | PROVIDERS: PCP Internal Medicine; Visit Provider Urology | DX: E11.69 Type 2 diabetes mellitus with other specified complication (principal); N52.1 Erectile dysfunction due to diseases classified elsewhere | CPT/HCPCS: 51798; 99212 ==

== ENCOUNTER 2023-11-23 08:51 | Outpatient (AMB) | payer MEDICARE, SELFPAY ==
--- NOTE | 2023-11-23 08:58 | MHC.OFFVIS ---
Vital Signs 11/23/23 08:59 Height 6 ft Weight 205 lb 0.478 oz BMI 27.8 BP 130/56 L Blood Pressure Location Lt brachial Position Sitting Pulse 55 Pulse Source Pulse Oximeter Intake Visit Reasons: DM/confirmed Intake Note: Patient present today to follow up on Type 2 Diabetes Mellitus. Last Diabetic Eye exam: 09/13/2023 [facility] Last Podiatry Visit: Doesn't have one Random Glucose: 306 mg/dl HgA1C: >14.0% It Web Development Consultant Required: No Accompanied by: Self / Same As Patient Allergies lisinopril Allergy (Unknown, Verified 11/23/23 09:03) lip swelling and cough, dizzy HPI Comments Details: Patient is a 73 yo male with DM type 2 diagnosed around 2009, who presents for management of diabetes. PMH: HLD, DM2, Micro and macrovascular complications: + mild proliferative retinopathy, + nephropathy, +neuropathy, Diabetes medications: Toujeo 22 units, metformin 1G QD not tolerated , (prescribed Trulicity but patient states can't afford). Farxiga 5 mg didn't start QD. Symptoms reported: denies Hypoglycemia:no Hyperglycemia: +polyuria, + nocturia (every 2-3 hours), denies polydypsia Blood glucose monitoring: Glucometer download shows patient is checking his point of care once-2 a day. Average glucose is 410 with range of 218-hi. 10% of blood sugars are in range with 90% hyperglycemia and no hypoglycemia Physical activity: Walks about 3/4 - 1 mile most days Eye exam: -last exam appt no retinopathy. Has appt this yr Laboratory Tests 09/30/21 09/30/21 09/30/21 12:35 12:35 12:35 Creatinine 1.31 Estimated GFR 54 Triglycerides 94 Cholesterol 123 LDL Cholesterol Direct 67 LDL Cholesterol, Calc 67 HDL Cholesterol 38 Microalb/Creat Ratio 73.7 PFSH Medical History Personal history of nicotine dependence Chest discomfort Intermittent palpitations Hx of skin malignancy Essential (primary) hypertension Vitamin D deficiency, unspecified Dyslipidemia, goal LDL below 100 Proteinuria, unspecified Type 2 diabetes mellitus with other diabetic kidney complication (~2009) Type 2 diabetes mellitus with diabetic polyneuropathy (~2009) Surgical History History of colonoscopy History of esophagogastroduodenoscopy (EGD) History of left inguinal hernia repair History of appendectomy Family History Father No problems noted. Mother Diabetes Social History Household Members: Family Household Members Other:: Daughter Housing: House Patient Tobacco Use Status: Current someday Tobacco user Tobacco use type: Cigarette Years Smoked: (Onset 16yo, 1ppd x 55yrs, 50pyh, quit 2019) e-Cigarette/Vaping Use: Never Used Current occupational status: employed Cognitive needs: Yes Hearing needs: No Vision needs: No Physical Exam Vital Signs: Last Vital Signs Pulse 55 11/23/23 08:59 BP 130/56 L 11/23/23 08:59 BMI result Body Mass Index 27.8 Absence of Cushingoid features. Absence of acromegalic features. Neck exam reveals nl size thyroid about 15 gms. No thyroid nodules palpable. No carotid bruits present. Lungs CTA. Heart S1 S2, Reg R/R. No M/R/ G. Skin exam reveals absence of vitiligo or acanthosis nigricans. Abdominal exam reveals Soft NT/ND with NA BS. No organomegaly present. Neck Other: . Extrem Other: Visual exam of foot performed. No ulcerations or open lesions. No onchomycosis, no callouses.Pulses 2 + distally Sensation intact to monofilament exam. Vibratory sensation sensed is decreased with 128 Hz tuning fork Results AMB Hemoglobin A1c AMB Hemoglobin A1c > 14.0 % Last Edit by TED Montaño on 11/23/23 09:15 Results Reviewed Results Reviewed: Laboratory Last Values Glucose (Clinic) 306 mg/dL (60-115) H 11/23/23 09:05 Hgb A1c (Clinic) > 14.0 % (4.0-6.0) H 11/23/23 09:08 Assessment & Plan Assessment & Plan (1) Type 2 diabetes mellitus with other diabetic kidney complication: Onset Date: ~2009 Code(s): E11.29 - Type 2 diabetes mellitus with other diabetic kidney complication Category: Medical Plan: This is 73-year-old white male with a history of type 2 diabetes being treated metformin and basal insulin with poor glycemic control and known microvascular complications namely retinopathy, neuropathy and CKD. Plan is to have the patient stop the metformin because of the diarrhea and start Trulicity 0.75 mg Q weekly. We went over the side effects of Trulicity including but not limited to nausea, vomiting rare risk of pancreatitis have the patient check his point cares pre and post meals. . He would be a good candidate for Dexcom and he was supposed to start sensor but did not . He is opposed to starting a sensor and somewhat reluctant check his blood sugars more frequently We could add prandial insulin once we have more data point per We also went over the relationship between poor glycemic control and development and progression of complications. I did tell him that he needs to start the sensor or check point of cares more frequently and meet with prosthodontist/educator so that we can make some substantial headway to his treatment . Without the above steps, control the diabetes with virtually impossible and explained this to him. Orders: Orders AMB Hemoglobin A1c Today E11.42 - Type 2 diabetes mellitus with diabetic polyneuropathy, Z13.9 - Encounter for screening, unspecified, Z79.4 - group home (current) use of insulin Medications: New dulaglutide (Trulicity) 0.75 mg (0.5 mL) subcut QWEEK 2 mL 0RF Coding Level of Care Code Est Pt Level 4 (92429) Diagnoses Type 2 diabetes mellitus with other diabetic kidney complication E11.29
[2023-11-23 08:59] VITALS: BP 130/56; PULSE 55; BMI 27.8
[2023-11-23 09:09] LABS: Glucose, Whole Blood 306 mg/dL (60-115)
== END 2023-11-23 09:40 | disposition home or self-care (01) ==
PROVIDERS: PCP Internal Medicine; Visit Provider Internal Medicine Endocrinology, Diabetes & Metabolism
DX: Z13.9 Encounter for screening, unspecified (principal); E11.42 Type 2 diabetes mellitus with diabetic polyneuropathy; Z79.4 Long term (current) use of insulin; E11.29 Type 2 diabetes mellitus with other diabetic kidney complication
CPT/HCPCS: 99214

== ENCOUNTER → 2023-11-23 08:51 | Outpatient (BNVA) | payer MEDICARE, SELFPAY | PROVIDERS: PCP Internal Medicine; Visit Provider Internal Medicine Endocrinology, Diabetes & Metabolism | DX: E11.29 Type 2 diabetes mellitus with other diabetic kidney complication (principal) | CPT/HCPCS: 36415; 80048; 80061; 82947; 83036; 99212 ==

== ENCOUNTER 2023-11-23 09:42 | Outpatient (REF) | payer MEDICARE, SELFPAY ==
[2023-11-23 12:24] LABS: Anion Gap 15 (12-20); Blood Urea Nitrogen 21 mg/dL (9-16); Calcium 9.8 mg/dL (8.4-10.2); Carbon Dioxide 27 mmol/L (22-29); Chloride 101 mmol/L (96-108); Cholesterol 170 mg/dL (<200); Estimated Glomerular Filt Rate 51; Glucose Random 348 mg/dL (60-115); HDL Cholesterol 39 mg/dL (>40); LDL Cholesterol Calculated 92 mg/dL (<100); Potassium 4.2 mmol/L (3.3-5.1); Sodium 139 mmol/L (135-145); Triglycerides 195 mg/dL (<150)
== END 2023-11-23 09:43 | disposition home or self-care (01) ==
LOC: HO.10HDL 09:42
PROVIDERS: Visit Provider Internal Medicine Endocrinology, Diabetes & Metabolism
DX: Z13.89 Encounter for screening for other disorder (principal)
CPT/HCPCS: 36415; 80048; 80061

== ENCOUNTER 2023-12-09 10:31 | Outpatient (AMB) | payer MEDICARE, SELFPAY ==
--- NOTE | 2023-12-09 11:13 | A.OFFVIS_ITS ---
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: DM Digital Music Instructor Required: No Accompanied by: Self / Same As Patient Allergies lisinopril Allergy (Unknown, Verified 11/23/23 09:03) lip swelling and cough, dizzy HPI Comprehensive Diabetes Asmnt Most Recent Diabetes Results: Microalb/Creat Ratio 41.8 ug/mg cr (<30) H 07/28/23 Cholesterol 170 mg/dL (<200) 11/23/23 HDL Cholesterol 39 mg/dL (>40) L 11/23/23 Triglycerides 195 mg/dL (<150) H 11/23/23 Creatinine 1.38 mg/dL (0.5-1.4) 11/23/23 Blood Urea Nitrogen 21 mg/dL (9-16) H 11/23/23 Sodium 139 mmol/L (135-145) 11/23/23 Potassium 4.2 mmol/L (3.3-5.1) 11/23/23 Chloride 101 mmol/L (96-108) 11/23/23 Carbon Dioxide 27 mmol/L (22-29) 11/23/23 Calcium 9.8 mg/dL (8.4-10.2) 11/23/23 AST 13 U/L (5-37) 11/25/22 ALT 13 U/L (0-40) 11/25/22 Total Protein 6.8 g/dL (6.5-8.0) 09/30/21 Albumin 4.3 g/dL (3.5-5.0) 09/30/21 [facility] Medical History Personal history of nicotine dependence Chest discomfort Intermittent palpitations Hx of skin malignancy Essential (primary) hypertension Vitamin D deficiency, unspecified Dyslipidemia, goal LDL below 100 Proteinuria, unspecified Type 2 diabetes mellitus with other diabetic kidney complication (~2009) Type 2 diabetes mellitus with diabetic polyneuropathy (~2009) Surgical History History of colonoscopy History of esophagogastroduodenoscopy (EGD) History of left inguinal hernia repair History of appendectomy Family History Father No problems noted. Mother Diabetes Social History Household Members: Family Household Members Other:: Daughter Housing: House Patient Tobacco Use Status: Current someday Tobacco user Tobacco use type: Cigarette Years Smoked: (Onset 16yo, 1ppd x 55yrs, 50pyh, quit 2019) e-Cigarette/Vaping Use: Never Used Current occupational status: employed Cognitive needs: Yes Hearing needs: No Vision needs: No Assessment & Plan Assessment & Plan (1) Erectile dysfunction associated with type 2 diabetes mellitus: Code(s): E11.69 - Type 2 diabetes mellitus with other specified complication; N52.1 - Erectile dysfunction due to diseases classified elsewhere Plan: Learning objectives: The patient was provided with verbal and written education on the following topics as outlined below. The patient met all learning objectives and was able to verbalize understanding and provide teach back of education topics discussed . The patient was provided with the opportunity to ask questions and all questions were answered. Patient Assessment Assess patient education level/literacy/barriers Patient questions/concerns, patient's last A1c is 14% on 11/23/2023 He is currently taking metformin 1000 mg daily Trulicity 0.75 mg weekly Toujeo 22 units daily Patient recently started on Trulicity 0.75 mg, stated at visit today that he has concerned about the cost. Recommended to patient to set up appointment with nurse practitioner to discuss alternatives to Trulicity if he decides not to continue. At this time he states he will continue but would like to increase dose after his 1st 4 weeks of the 0.75 mg. Message will be sent to provider to send prescription for increased dose. Patient reports that he currently eats out 4-5 times weekly, does not like to cook so uses a lot of foods that he can microwave. Patient reports he also currently consumes regular soda and juice daily Recommended to patient that if he can reduce high carbohydrate drinks this may improve glucose levels significantly. After discussion with patient patient does not seem ready to make changes to his meal plan What is Diabetes? Pathophysiology How the body produces and uses insulin Identify type of DM Risk factors Signs of Diabetes Brief overview of Diabetes Management Monitoring blood sugar Following a meal plan Regular exercise Maintaining a healthy weight Taking medication as needed Members of the care team (PCP, RN, MA, RD, CDE, die press operator) Blood glucose monitoring When/how often to test Target blood sugar ranges Patient is testing glucose with 1 touch meter 1-2 times daily Patient's glucose at this time is ranging in the 300-above 500 mg/dL Introduction to Nutrition Importance of healthy diet in managing DM Diet is personalized to individual preference Review patient?s regular diet/food preferences Who prepares meals/does food shopping/ Dining out?/ Barriers? How diet effects glucose Eating 3 balanced meals a day with small, healthy snacks between meals Review food groups Carbohydrates: What is a carbohydrate/Which food/food groups are considered carbohydrates Effect of carbohydrates on blood glucose Portion sizes Reading food labels Basic carb counting (if applicable per nursing assessment) Plate method Meal planning Recommendations: Follow plate method, consistent carbs and read nutritional labels. Smart Goal: Identify foods that you are currently eating that contain carbohydrates Educational Materials: The patient was provided with the following written educational materials: Planning Healthy Meals Handout Patient Response to instructions: Comprehension of Instructions: poor Readiness to make changes: Pre contemplation How confident they feel about making changes: Poor Portions of this note were created using voice recognition software, please excuse any words or phrases that may have been misinterpreted. Patient Instructions: Include regular daily activity. ADA recommends 30 minutes of exercise 5 days a week. Weight loss talk to PCP or Wet Roller before starting new plan. Test blood sugar as directed; Fasting and 2hpp largest meal. Watch trends in results. Utilize results and to assess how food, physical activity and medications affect blood sugar results. Bring glucometer or CGM to next visit. Be knowledgeable about diabetes medication, its action, side effects, efficacy, toxicity, prescribed dosage, appropriate timing and frequency of administration, effect of missed and delayed doses and instructions for storage, travel and safety. Problem solving techniques to monitor hypo/hyperglycemia episodes and treatments. Reduce risk reduction behaviors, smoking cessation, regular eye, foot and dental examinations. Coding Level of Care Code Est Pt Level 1 (49777) Diagnoses Erectile dysfunction associated with type 2 diabetes mellitus E11.69; N52.1
== END 2023-12-09 11:20 | disposition home or self-care (01) ==
PROVIDERS: PCP Internal Medicine; Visit Provider Registered Nurse Diabetes Educator
DX: E11.69 Type 2 diabetes mellitus with other specified complication (principal); N52.1 Erectile dysfunction due to diseases classified elsewhere

== ENCOUNTER → 2023-12-09 10:31 | Outpatient (BNVA) | payer MEDICARE, SELFPAY | PROVIDERS: PCP Internal Medicine; Visit Provider Registered Nurse Diabetes Educator | DX: E11.69 Type 2 diabetes mellitus with other specified complication (principal); N52.1 Erectile dysfunction due to diseases classified elsewhere | CPT/HCPCS: 99211 ==

== ENCOUNTER 2023-12-31 09:20 | Outpatient (AMB) | payer MEDICARE, SELFPAY ==
--- NOTE | 2023-12-31 09:18 | A.OFFPC_ITS ---
Intake Visit Reasons: f/u med & labs Andriod [phone] Allergies lisinopril Allergy (Unknown, Verified 12/31/23 09:53) lip swelling and cough, dizzy Medication List - Last Reconciled 12/31/23 by Rochelle Gibbons MD amlodipine 5 mg PO QPM aspirin (Adult Low Dose Aspirin) 81 mg PO DAILY blood sugar diagnostic (Beetle BeatsTouch Verio test strips) As directed 4 times a day blood-glucose meter (PinPay Verio Flex Start kit) As directed to test blood glucose two times a day dicyclomine 20 mg PO QID dulaglutide (Trulicity) 1.5 mg (0.5 mL) subcut QWEEK lancets (N2Careuch Delica Lancets) As directed twice a day losartan 100 mg PO DAILY omega-3 fatty acids (Fish Oil Concentrate) 1,000 mg PO DAILY pen needle, diabetic (Droplet Pen Needle) USE DIRECTED ONE TIME DAILY simvastatin 20 mg PO BEDTIME tadalafil 5 mg PO DAILY 90 days Tobacco use date assessed: 12/31/23 Fall risk assessment: 1 Fall in past year Last assessed Fall Risk: 12/31/23 Dental Screening Dental Screen Date: 12/31/23 Did you have a dental visit in the last 12 months?: No Did you have a dental problem in the last 6 months where you did not have access to dental care?: No Was dental information given to patient?: Patient declined HPI f/u med & labs Andriod [phone] HPI Details 73-year-old male with diabetes mellitus, hypertension and hyperlipidemia, here today for follow up on his lipids . He is currently being followed by Dr. Elena for his diabetes mellitus, stopped taking metformin due to severe GI side effects and was started recently a month ago on Trulicity 0.75 mg injected once a week. Here today for follow-up on his lipids, currently on simvastatin 20 mg at bedtime. Been trying to follow recommended diet, but admits to not getting any regular exercise. Recent fasting labs showed lipids are within normal limits except for mildly elevated triglycerides. He states that his bowel movements have started becoming normal again since stopping metformin, would like to see if he can start tapering off taking his dicyclomine tablets. [facility], [facility] Medical History Personal history of nicotine dependence Chest discomfort Intermittent palpitations Hx of skin malignancy Essential (primary) hypertension Vitamin D deficiency, unspecified Dyslipidemia, goal LDL below 100 Proteinuria, unspecified Type 2 diabetes mellitus with other diabetic kidney complication (~2009) Type 2 diabetes mellitus with diabetic polyneuropathy (~2009) Surgical History History of colonoscopy History of esophagogastroduodenoscopy (EGD) History of left inguinal hernia repair History of appendectomy History of squamous cell carcinoma excision Family History Father No problems noted. Mother Diabetes Social History Household Members: Family Household Members Other:: Daughter Housing: House Patient Tobacco Use Status: Current someday Tobacco user Tobacco use type: Cigarette Years Smoked: (Onset 16yo, 1ppd x 55yrs, 50pyh, quit 2018) e-Cigarette/Vaping Use: Never Used Current occupational status: employed Cognitive needs: Yes Hearing needs: No Vision needs: No Questionnaire Thrive Questionnaire Date Thrive assessed: 07/01/21 GRAYSON-7 AMB Questionnaire GRAYSON-7 Date GRAYSON - 7 assessed: 07/01/21 Source: Developed by Drs. Alexandro Claros, Rosa M Barnes, Demetri Agosto and colleagues, with an educational ely from [employer]. Review of Systems Const Denies chills, Denies fever(s) and Denies headache(s) ENT Denies dizziness, Denies headache(s) and Denies nasal congestion Card Denies chest pain, Denies rapid heart rate, Denies irregular heart rhythm, Denies claudication and Denies lightheadedness Resp Denies cough GI Denies abdominal pain and Denies heartburn Denies change in libido Musc Reports as per HPI Skin/Breast Denies lesions and Denies rash Neuro Denies dizziness and Denies headache(s) Psych Denies change in libido Endo Denies change in libido Huber/Lymph Reports no additional complaints Aller/Immun Reports no additional complaints Physical exam (Primary Care) Tobacco/Smoking Status: Tobacco use Status Tobacco use date assessed 12/31/23 12/31/23 09:20 Patient Tobacco Use Status Current someday Tobacco 12/31/23 09:20 Tobacco use type Cigarette 12/31/23 09:20 e-Cigarette/Vaping Use Never Used 12/31/23 09:20 Thrive Assessment: Date of Thrive Assessment Date Thrive assessed 07/01/21 12/31/23 09:20 Telehealth Telehealth Telehealth Platform: [employer] Location of provider rendering services: practice address Location of patient: address on file Patient Identification confirmed using: Name, : Yes Telehealth method: video Patient verbally consented to treatment: Yes Patient verbally consented to billing insurance company: Yes Patient informed of any privacy concerns related to visit: Yes Minutes spent on Phone/Video with Pt.: 15 Results Reviewed Results Reviewed: Name: Davin Baca Age/Sex: 73/M : 1950 Unit#: [id number] Attend Dr: Alexandro Elena MD Re11/23/23 Status: DEP REF Location: [address] Disch: SPEC : [id number] NOY: 11/23/23 STATUS: COMP REQ : [id number] RECD: 11/23/23-[address]: Alexandro Elena MD COMP: 11/23/23 ENTERED: 11/23/23 [facility] DR: ORDERED: BMP, Lipid Panel Test Result Flag Reference Sodium 139 135-145 mmol/L Potassium 4.2 3.3-5.1 mmol/L CL 101 96-108 mmol/L CO2 27 22-29 mmol/L Gap 15 12-20 BUN 21 H 9-16 mg/dL Creat 1.38 0.5-1.4 mg/dL EGFR 51 NOTE: For -[place]inid[place] individuals, multiply the result by 1.210. Chronic Kidney Disease: Estimated GFR < 60 mL/min/1.73m2 Severe Kidney Disease: Estimated GFR < 15 mL/min/1.73m2 Glucose, Random 348 H 60-115 mg/dL CA 9.8 # 8.4-10.2 mg/dL Triglyceride 195 H <150 mg/dL Desirable Triglyceride: less than 150 mg/dL Borderline High Triglyceride 150-199 mg/dL High Triglyceride: 200-499 mg/dL Very High Triglyceride: greater than or equal to 5OO mg/dL Cholesterol 170 <200 mg/dL Desirable Cholesterol: less than 200 mg/dL Borderline High Cholesterol: 200-239 mg/dL High Cholesterol: greater than 239 mg/dL LDL Calculated 92 <100 mg/dL Desirable LDL: less than 100 mg/dL Near Optimal/Above Optimal LDL: 110-129 mg/dL Borderline High LDL: 130-159 mg/dL High LDL: 160-189 mg/dL Very High LDL: greater than or equal to 190 mg/dL HDL 39 L >40 mg/dL Desirable HDL: greater than 40 mg/dL Note: This HDL assay may give artificially low results in patients with liver disease. Laboratory Tests 11/23/23 11/23/23 09:08 09:45 Random Glucose 348 H Hgb A1c (Clinic) > 14.0 H Assessment and Plan Assessment & Plan (1) Dyslipidemia, goal LDL below 100: Code(s): E78.5 - Hyperlipidemia, unspecified Plan: Reviewed recent fasting lipid profile with patient with levels within normal limits except for elevated triglycerides which could be due to his uncontrolled diabetes. . Continue simvastatin 20 mg at bedtime , in addition to adherence to low-cholesterol diet and regular exercise, at least 30 minutes 3 to 4 times a week. Advised patient to make healthy food choices, eat more fruits, vegetables, whole grains, wild caught fish and low-fat dairy. Limit amount of meat and fried or fatty food products, as well as processed foods and fast foods. Follow-up scheduled with repeat fasting lipid panel in 5 months. Orders: Orders Alanine Aminotransferase 05/14/24 E78.5 - Hyperlipidemia, unspecified, I10 - Essential (primary) hypertension Aspartate Amino Transferase 05/14/24 E78.5 - Hyperlipidemia, unspecified, I10 - Essential (primary) hypertension Basic Metabolic Panel Fasting 05/14/24 E78.5 - Hyperlipidemia, unspecified, I10 - Essential (primary) hypertension Lipid Panel 05/14/24 E78.5 - Hyperlipidemia, unspecified, I10 - Essential (primary) hypertension Medications: Discontinued metformin Discontinued Reason: Patient no longer taking 1,000 mg PO ONCE E11.29 - Type 2 diabetes mellitus with other diabetic kidney complication Coding Level of Care Code Tele Est Pt Level 4 (89631) Complex EM visit Add On G2211 Diagnoses Dyslipidemia, goal LDL below 100 E78.5
== END 2023-12-31 11:05 | disposition home or self-care (01) ==
LOC: HO.HMGC 09:20
PROVIDERS: PCP Internal Medicine; Visit Provider Internal Medicine
DX: E78.5 Hyperlipidemia, unspecified (principal)
CPT/HCPCS: 99214; G2211

== ENCOUNTER 2024-02-03 09:27 | Outpatient (REF) | payer MEDICARE, SELFPAY ==
--- NOTE | ~2024-02-03 | CT_ITS ---
EXAMINATION: CT LOW-DOSE SCREENING CHEST WITHOUT CONTRAST CLINICAL INFORMATION: Personal history of nicotine dependence. Former smoker. The patient has a 52 pack-year history of smoking, having quit 5 years ago. COMPARISON: CT chest May 01, 2022. TECHNIQUE: Multidetector volumetric CT imaging of the chest is performed on a Siemens SOMATOM Definition scanner without contrast using low dose technique. Additional 2D coronal and sagittal reformatted images and axial 3D maximum intensity projection (MIP) images are generated on the CT workstation. This CT examination was performed using dose optimization techniques as appropriate, variously including the following: *Automated exposure control. *Adjustment of mA and/or kV according to patient size (this includes techniques or standardized protocols for targeted exams where dose is matched to indication/reason for exam; i.e. extremities or head). *Use of iterative reconstruction technique. TOTAL EXAM DLP: 56 mGy-cm. CTDIvol: 1.59 mGy. FINDINGS: PULMONARY NODULES: There is a 3 mm left upper lobe nodule unchanged (series 5:201 compare prior 5:191). There is an unchanged 5 mm perifissural lymph node in the right middle lobe (5:264 compare prior 5:254). There is a 3 mm right lower lobe nodule unchanged (5:232 compare prior 5:306). There is no new, increasing-sized or suspicious pulmonary nodule. LUNGS: Lungs bilaterally symmetrically expanded. There is moderate emphysema along with mild diffuse bronchial thickening. No effusion or pneumothorax. Central airways patent. MEDIASTINUM: No mediastinal, hilar or axillary adenopathy or free fluid collection. CORONARY ARTERY CALCIFICATION: Mild. THYROID GLAND: Unremarkable to the extent seen. CARDIOVASCULAR STRUCTURES: Aortic and heart size normal. No pericardial effusion. CHEST WALL/AXILLA: Unremarkable. UPPER ABDOMEN: Included portions of the solid organs in the upper abdomen unremarkable on noncontrast imaging. OSSEOUS STRUCTURES: No suspicious focal findings. CT/CT lung screening IMPRESSION: Stable pulmonary nodules with no findings seen to suggest malignancy. ASSESSMENT: 1. Lung-RADS Category 2: Benign appearance or behavior of nodules. N/A. 2. Lung-RADS Category S: Negative. There are no clinically significant or potentially clinically significant findings not related to the lungs requiring urgent additional evaluation. RECOMMENDATION: Continued routine annual low-dose CT lung screening in 1 year is recommended. An order for CT CHEST LOW DOSE CANCER SCREENING ([id number]) can be placed. Electronically signed by: Rajiv Siegel MD 02/16/2024 12:15 AM EDT
== END 2024-02-03 09:28 | disposition home or self-care (01) ==
LOC: HO.CT 09:27
PROVIDERS: PCP Internal Medicine; Visit Provider Physician Assistant Medical
DX: Z12.2 Encounter for screening for malignant neoplasm of respiratory organs (principal); Z87.891 Personal history of nicotine dependence
CPT/HCPCS: 71271

== ENCOUNTER 2024-03-10 10:34 | Outpatient (AMB) | payer MEDICARE, SELFPAY ==
--- NOTE | 2024-03-10 10:40 | MHC.OFFVIS ---
Intake Visit Reasons: 6M Follow Up-PVR/Urinalysis Intake Note: Patient presents today for a 6m follow up/ PVR/urinalysis Meds- Tadalafil Allergies to Antibiotic- No Known Allergies Blood Thinner- Aspirin Post Void Residual: 143ml today's pvr: oml's Director Food Safety Required: No Accompanied by: Self / Same As Patient Allergies lisinopril Allergy (Unknown, Verified 03/10/24 10:42) lip swelling and cough, dizzy Medication List - Last Reconciled 03/10/24 by Jc Maldonado MD amlodipine 5 mg PO QPM aspirin (Adult Low Dose Aspirin) 81 mg PO DAILY blood sugar diagnostic (LaunchCyteToDeviceFidelity Verio test strips) As directed 4 times a day blood-glucose meter ([place] Verio Flex Start kit) As directed to test blood glucose two times a day dicyclomine 20 mg PO QID dulaglutide (Trulicity) 1.5 mg (0.5 mL) subcut QWEEK 84 days insulin glargine U-300 conc (Toujeo Max U-300 SoloStar) 22 units (0.0733 mL) subcut BEDTIME lancets (MD-ITuch Delica Lancets) As directed twice a day losartan 100 mg PO DAILY omega-3 fatty acids (Fish Oil Concentrate) 1,000 mg PO DAILY pen needle, diabetic (Droplet Pen Needle) USE DIRECTED ONE TIME DAILY simvastatin 20 mg PO BEDTIME tadalafil 5 mg PO DAILY 90 days HPI Comments Details: Davin is a pleasant male.? He is a patient of Dr. Gibbons. He is seen for the following urologic conditions - testicular swelling - lower urinary tract symptoms Six-month follow-up Follow-up for daily tadalafil PVR 0 cc Glucose 1+ UA Continue tadalafil Six-month follow-up lab work baseline testosterone Lower urinary tract symptoms Current medications tadalafil 5 mg daily Prior medications alfuzosin Comorbidities include diabetes Bladder ultrasound 09/02 50 cc residual, 350cc PSA 09/01 0.8, 11/03 0.7 Testicular/Scotal orchalgia-swelling:? Prior testicular pain left side is ? Can continue using meloxicam on Celebrex as needed for his pain. ? Primary complaint of swelling, left, testicle(s). ? The symptoms started or were observed: Ongoing. ? Imaging includes testicular ultrasound - left mild hydrocele with epididymitis. ? Character of the pain is chronic. ? Based on imaging and exam diagnosis is most consistent with epididymitis. ? Prior therapy(ies) include use of anti-inflammatories PFSH Medical History Personal history of nicotine dependence Chest discomfort Intermittent palpitations Hx of skin malignancy Essential (primary) hypertension Vitamin D deficiency, unspecified Dyslipidemia, goal LDL below 100 Proteinuria, unspecified Type 2 diabetes mellitus with other diabetic kidney complication (~2009) Type 2 diabetes mellitus with diabetic polyneuropathy (~2009) Surgical History History of colonoscopy History of esophagogastroduodenoscopy (EGD) History of left inguinal hernia repair History of appendectomy History of squamous cell carcinoma excision Family History Father No problems noted. Mother Diabetes Social History Household Members: Family Household Members Other:: Daughter Housing: House Patient Tobacco Use Status: Current someday Tobacco user Tobacco use type: Cigarette Years Smoked: (Onset 16yo, 1ppd x 55yrs, 50pyh, quit 2019) e-Cigarette/Vaping Use: Never Used Current occupational status: employed Cognitive needs: Yes Hearing needs: No Vision needs: No Review of Systems Const Denies chills and Denies fever(s) Card Reports no additional complaints and Denies syncope Resp Denies cough GI Denies abdominal pain and Denies heartburn Reports as per HPI and Denies change in libido Neuro Denies syncope Psych Denies change in libido Endo Denies change in libido Physical Exam Const General: cooperative, healthy appearing, comfortable and no acute distress Orientation/consciousness: patient oriented x3 HEENT Face and sinus: Yes normal facial exam Mouth: moist mucous membranes Neck Neck: Yes normal visual inspection, Yes full ROM and Yes trachea midline Chest Chest palpation & inspection: normal inspection of the chest Resp Effort & Inspection: normal respiratory effort, able to speak in complete sentences and no respiratory distress GI Inspection: Yes normal to inspection Back/Spine/Pelvis Cervical Spine: normal cervical lordosis Thoracic/Lumbar Spine: thoracic and lumbar spine normal to inspection Skin General skin exam: no rashes or lesions noted Neuro General: patient oriented x3, gait normal, tone normal and moves all extremities Extrem General: Yes normal to inspection and Yes capillary refill normal Office Procedures Post Void Residual Post Residual Void Post Void Residual (PVR): 0 [id number]-[id number] Void Residual by ultrasound Results AMB Urinalysis, Automated UA Leukoctes 0 Teresita/uL Last Edit by CELINE Milner on 03/10/24 10:51 UA Nitrite Negative Last Edit by Chantel Momin [facility] on 03/10/24 10:51 UA Urobilinogen 0.2 mg/dL Last Edit by Chantel Momin [facility] on 03/10/24 10:51 UA Protein 15 mg/dL Last Edit by Chantel Momin [facility] on 03/10/24 10:51 UA pH 5.5 Last Edit by Chantel Momin [facility] on 03/10/24 10:51 UA Blood 0 Papi/uL Last Edit by Chantel Momin [facility] on 03/10/24 10:51 UA Specific [place] 1.025 Last Edit by Chantel Momin [facility] on 03/10/24 10:51 UA Ketone Negative Last Edit by Chantel Momin [facility] on 03/10/24 10:51 UA Bilirubin 0 mg/dL Last Edit by Chantel Momin [facility] on 03/10/24 10:51 UA Glucose 250 mg/dL Last Edit by Chantel Momin [facility] on 03/10/24 10:51 Results Reviewed Results Reviewed: Laboratory Last Values Urine pH (Auto) 5.5 03/10/24 10:50 Specific [place] (Auto) 1.025 03/10/24 10:50 Urine Protein (Auto) 15 mg/dL 03/10/24 10:50 Glucose (UA)(Auto) 250 mg/dL 03/10/24 10:50 Urine Ketones (Auto) Negative 03/10/24 10:50 Urine Blood (Auto) 0 Papi/uL 03/10/24 10:50 Urine Nitrite (Auto) Negative 03/10/24 10:50 Urine Bilirubin (Auto) 0 mg/dL 03/10/24 10:50 Urine Urobilinogen (Auto) 0.2 mg/dL 03/10/24 10:50 Leukocyte Esterase (Auto) 0 Teresita/uL 03/10/24 10:50 Assessment & Plan Assessment & Plan (1) Nocturia more than twice per night: Code(s): R35.1 - Nocturia Category: Medical (2) Erectile dysfunction associated with type 2 diabetes mellitus: Code(s): E11.69 - Type 2 diabetes mellitus with other specified complication; N52.1 - Erectile dysfunction due to diseases classified elsewhere Category: Medical Plan Six-month follow-up lab work Orders: Orders AMB Urinalysis Automated Today Z13.9 - Encounter for screening, unspecified Prostate Specific Antigen 2 Months E11.69 - Type 2 diabetes mellitus with other specified complication, N52.1 - Erectile dysfunction due to diseases classified elsewhere Testosterone, Total 2 Months E11.69 - Type 2 diabetes mellitus with other specified complication, N52.1 - Erectile dysfunction due to diseases classified elsewhere Patient Instructions: Imaging studies, laboratory and physical exam results were discussed and reviewed in detail. No major barriers to patient understanding were identified. An opportunity to ask questions regarding the treatment plan was provided. All questions were answered. The patient expressed understanding and agreement with the above treatment plan. The patient is aware they should contact our office by phone for worsening of their current condition or the appearance of new urologic symptoms. Compliance is encouraged with any medications and followup testing that is ordered. It is a privilege to participate in the urologic care of your patient. If you have any questions or concerns regarding treatment for the above conditions, or other urologic issues, please do not hesitate to contact me. The office telephone contact is [phone]. This note is constructed using voice recognition software. While every effort has been made to ensure accuracy boilermaker ship errors may have been included. Yours sincerely, Dr Jc Maldonado MD, [facility] - Urology Providers of Expert, Compassionate Care for the Genitourinary System Coding Level of Care Code Est Pt Level 3 (94608) Diagnoses Nocturia more than twice per night R35.1 Erectile dysfunction associated with type 2 diabetes mellitus E11.69; N52.1 CPT Codes Post Residual Void - PVR CPT Code: 39698-Gmxx Void Residual by ultrasound ([id number])
== END 2024-03-10 11:19 | disposition home or self-care (01) ==
PROVIDERS: PCP Internal Medicine; Visit Provider Urology
DX: R35.1 Nocturia (principal); E11.69 Type 2 diabetes mellitus with other specified complication; N52.1 Erectile dysfunction due to diseases classified elsewhere; Z13.9 Encounter for screening, unspecified
CPT/HCPCS: 99213

== ENCOUNTER → 2024-03-10 10:34 | Outpatient (BNVA) | payer MEDICARE, SELFPAY | PROVIDERS: PCP Internal Medicine; Visit Provider Urology | DX: R35.1 Nocturia (principal); E11.69 Type 2 diabetes mellitus with other specified complication; N52.1 Erectile dysfunction due to diseases classified elsewhere | CPT/HCPCS: 51798; 81003; 99212 ==

== ENCOUNTER 2024-03-22 13:20 | Outpatient (AMB) | payer MEDICARE, SELFPAY ==
--- NOTE | 2024-03-22 13:23 | A.OFFVIS_ITS ---
Vital Signs 03/22/24 13:27 Height 6 ft Weight 209 lb 7.026 oz BMI 28.4 BP 128/58 L Blood Pressure Location Rt brachial Position Sitting Pulse 75 Pulse Source Pulse Oximeter Intake Visit Reasons: DM Intake Note: Patient presents today to re-establish treatment for Type 2 Diabetes Mellitus: Last Diabetic eye exam was on: 06/2023 Last Podiatry exam was on: Does not see a Nurses' Registry Director Most recent HbA1c: 10.2%, 03/22/2024 Random Glucose- 365 mg/dL, Today Fresco Artist Required: No Accompanied by: Self / Same As Patient Allergies lisinopril Allergy (Unknown, Verified 03/10/24 10:42) lip swelling and cough, dizzy Medication List - Last Reconciled 03/24/24 by Deena Mane NP amlodipine 5 mg PO QPM aspirin (Adult Low Dose Aspirin) 81 mg PO DAILY blood sugar diagnostic ([employer] Trans Verio test strips) As directed 4 times a day blood-glucose meter (Green[employer] Trans Verio Flex Start kit) As directed to test blood glucose two times a day dicyclomine 20 mg PO QID dulaglutide (Trulicity) 1.5 mg (0.5 mL) subcut QWEEK 84 days insulin glargine U-300 conc (Toujeo Max U-300 SoloStar) 24 units subcut BEDTIME lancets (GreenDot Trans Delica Lancets) As directed twice a day losartan 100 mg PO DAILY omega-3 fatty acids (Fish Oil Concentrate) 1,000 mg PO DAILY pen needle, diabetic (Droplet Pen Needle) USE DIRECTED ONE TIME DAILY simvastatin 20 mg PO BEDTIME tadalafil 5 mg PO DAILY 90 days HPI Comments Details: Patient is a 74 yo male with DM type 2 diagnosed around 2009, who presents for management of diabetes. PMH: HLD, DM2, Micro and macrovascular complications: + mild proliferative retinopathy, + nephropathy, +neuropathy, Diabetes medications: Toujeo 22 units, metformin 1G QD not tolerated , (prescribed Trulicity but patient states can't afford). Farxiga 5 mg didn't start QD. Symptoms reported: denies Hypoglycemia:no Hyperglycemia: +polyuria, + nocturia , denies polydypsia Gucose average 282 Physical activity: Walks about 3/4 - 1 mile most days Eye exam: -last exam appt no retinopathy. Has appt this yr [facility] Medical History Personal history of nicotine dependence Chest discomfort Intermittent palpitations Hx of skin malignancy Essential (primary) hypertension Vitamin D deficiency, unspecified Dyslipidemia, goal LDL below 100 Proteinuria, unspecified Type 2 diabetes mellitus with other diabetic kidney complication (~2009) Type 2 diabetes mellitus with diabetic polyneuropathy (~2009) Surgical History History of colonoscopy History of esophagogastroduodenoscopy (EGD) History of left inguinal hernia repair History of appendectomy History of squamous cell carcinoma excision Family History Father No problems noted. Mother Diabetes Social History Household Members: Family Household Members Other:: Daughter Housing: House Patient Tobacco Use Status: Current someday Tobacco user Tobacco use type: Cigarette Years Smoked: (Onset 16yo, 1ppd x 55yrs, 50pyh, quit 2018) e-Cigarette/Vaping Use: Never Used Current occupational status: employed Cognitive needs: Yes Hearing needs: No Vision needs: No Physical Exam Vital Signs: Last Vital Signs Pulse 75 03/22/24 13:27 BP 128/58 L 03/22/24 13:27 BMI result Body Mass Index 28.4 Const Other: Absence of Cushingoid features. Absence of acromegalic features. Neck exam reveals nl size thyroid about 15 gms. No thyroid nodules palpable. Heart S1 S2, Reg R/R. No M/R G. Skin exam reveals absence of vitiligo or acanthosis nigricans. No edema Visual exam of foot performed. No ulcerations or open lesions. No inter digit maceration or fissuring. No onychomycosis, no callouses. Sensation intact to monofilament exam. Vibratory sensation is normal with 128 Hz tuning fork. Results AMB Hemoglobin A1c AMB Hemoglobin A1c 10.2 % Last Edit by TED Irizarry on 03/22/24 13:4 3 Results Reviewed Results Reviewed: Laboratory Last Values Glucose (Clinic) 365 mg/dL (60-115) H* 03/22/24 13:30 Hgb A1c (Clinic) 10.2 % (4.0-6.0) H 03/22/24 13:32 Assessment & Plan Assessment & Plan (1) Type 2 diabetes mellitus with diabetic polyneuropathy: Onset Date: ~2009 Code(s): E11.42 - Type 2 diabetes mellitus with diabetic polyneuropathy Category: Medical Qualifiers: Diabetes mellitus termite control servicer insulin use: with prison use Qualified Code(s): E11.42 - Type 2 diabetes mellitus with diabetic polyneuropathy; Z79.4 - penitentiary (current) use of insulin Plan Type 2 diabetic with poor glycemic control has been limited by cost of his medications. Discontinue Toujeo and start on mixed insulin twice daily. The 70/30 insulin is potentially on the 35 dollar per month insulin program. He was also encouraged to look at [employer]'s patient assistance program. We will see the patient back shortly to see if the mixed insulin is working. He was counseled on the need to take before the meal in the need to regularly space food. Orders: Orders AMB Hemoglobin A1c 03/22/24 E11.29 - Type 2 diabetes mellitus with other diabetic kidney complication Medications: New insulin asp prt-insulin aspart 100 unit/mL (70-30) (Novolog Mix 70-30FlexPen U- 100) 16 units (0.16 mL) subcut BID 90 days 28.8 mL 4RF E11.42 - Type 2 diabetes mellitus with diabetic polyneuropathy, Z79.4 - termite control servicer (current) use of insulin Discontinued insulin glargine U-300 conc (Toujeo Max U-300 SoloStar) Discontinued Reason: Doctor's Order 24 units subcut BEDTIME Patient Instructions: The patient was counseled to achieve a target A1C of 7% (154 avg). Fasting blood sugars should be 90-130 in the morning and less than 180 two hours after meals. Reviewed the relationship between poor diabetic control and the development of complications. The patient was counseled to always carry a source of sugar and on the rule of 15's: Take 3 glucose tablets and repeat again in 15 minutes if blood sugar is not in normal range. Continue to repeat every 15 minutes until blood sugar is normal. Coding Level of Care Code Est Pt Level 4 (19793) Complex EM visit Add On G2211 Diagnoses Type 2 diabetes mellitus with diabetic polyneuropathy, with long-term current use of insulin E11.42; Z79.4 Diabetes mellitus prison insulin use: with termite control servicer use Time Spent (min) 35 Comment Time spent reviewing labs/provider notes, face to face, chart doc
[2024-03-22 13:27] VITALS: BP 128/58; PULSE 75; BMI 28.4
[2024-03-22 13:35] LABS: Glucose, Whole Blood 365 mg/dL (60-115)
== END 2024-03-22 14:08 | disposition home or self-care (01) ==
PROVIDERS: PCP Internal Medicine; Visit Provider Nurse Practitioner Adult Health
DX: E11.42 Type 2 diabetes mellitus with diabetic polyneuropathy (principal); Z79.4 Long term (current) use of insulin
CPT/HCPCS: 99214; G2211

== ENCOUNTER → 2024-03-22 13:20 | Outpatient (BNVA) | payer MEDICARE, SELFPAY | PROVIDERS: PCP Internal Medicine; Visit Provider Nurse Practitioner Adult Health | DX: E11.42 Type 2 diabetes mellitus with diabetic polyneuropathy (principal); E11.21 Type 2 diabetes mellitus with diabetic nephropathy; E11.29 Type 2 diabetes mellitus with other diabetic kidney complication; E11.3599 Type 2 diabetes mellitus with proliferative diabetic retinopathy without macular edema, unspecified eye; E78.5 Hyperlipidemia, unspecified; Z79.84 Long term (current) use of oral hypoglycemic drugs; Z79.4 Long term (current) use of insulin; Z79.899 Other long term (current) drug therapy | CPT/HCPCS: 82947; 83036; 99212 ==

== ENCOUNTER 2024-04-19 09:49 | Outpatient (AMB) | payer MEDICARE, SELFPAY ==
--- NOTE | 2024-04-19 09:09 | A.OFFVIS_ITS ---
Vital Signs 04/19/24 09:55 Height 6 ft Weight 209 lb 7.026 oz BMI 28.4 BP 122/58 L Blood Pressure Location Rt brachial Position Sitting Pulse 99 Pulse Source Pulse Oximeter Intake Visit Reasons: DM/CONFIRMED Intake Note: Patient presents today for a follow-up for Type 2 Diabetes Mellitus: Last Diabetic eye exam was on: 06/2023 Last Podiatry exam was on: Does not see a Certified Medical Asst Most recent HbA1c: 10.2%, 03/22/2024 Random Glucose- 277 mg/dL, Today Family Resource Coordinator Required: No Accompanied by: Self / Same As Patient Allergies lisinopril Allergy (Unknown, Verified 04/19/24 09:52) lip swelling and cough, dizzy HPI Comments Details: Patient is a 74 yo male with DM type 2 diagnosed around 2009, who presents for management of diabetes. He was last seen 03/18/2024 and was changed to 75/25 insulin secondary to high co-pay is on his other insulin PMH: HLD, DM2, Micro and macrovascular complications: + mild proliferative retinopathy, + nephropathy, +neuropathy, He was unable to tolerate metformin 1 g due to GI side effects, had been prescribed Trulicity but could not afford co-pay, prescribed Farxiga in the past but did not start. Diabetes medications: NovoLog 70/30 16 units b.i.d. Sugars by meter runnin+ checking several times per day Eye exam: last exam appt he reports no retinopathy ,EHR indicate h/o mild proliferative retinopathy Has neuropathy: Symptoms reported Hypoglycemia:no Physical activity: Walks about 3/4 - 1 mile most days [facility] Medical History Personal history of nicotine dependence Chest discomfort Intermittent palpitations Hx of skin malignancy Essential (primary) hypertension Vitamin D deficiency, unspecified Dyslipidemia, goal LDL below 100 Proteinuria, unspecified Type 2 diabetes mellitus with other diabetic kidney complication (~2009) Type 2 diabetes mellitus with diabetic polyneuropathy (~2009) Surgical History History of colonoscopy History of esophagogastroduodenoscopy (EGD) History of left inguinal hernia repair History of appendectomy History of squamous cell carcinoma excision Family History Father No problems noted. Mother Diabetes Social History Household Members: Family Household Members Other:: Daughter Housing: House Patient Tobacco Use Status: Current someday Tobacco user Tobacco use type: Cigarette Years Smoked: (Onset 16yo, 1ppd x 55yrs, 50pyh, quit 2019) e-Cigarette/Vaping Use: Never Used Current occupational status: employed Cognitive needs: Yes Hearing needs: No Vision needs: No Physical Exam Const Other: Absence of Cushingoid features. Absence of acromegalic features. Neck exam reveals nl size thyroid about 15 gms. No thyroid nodules palpable. . Heart S1 S2, Reg R/R. No M/R G. Skin exam reveals absence of vitiligo or acanthosis nigricans. No edema Visual exam of foot performed. No ulcerations or open lesions. No inter digit maceration or fissuring. No onychomycosis, no callouses. sensation intact. Assessment & Plan Assessment & Plan (1) Type 2 diabetes mellitus with other diabetic kidney complication: Onset Date: ~2009 Code(s): E11.29 - Type 2 diabetes mellitus with other diabetic kidney complication Category: Medical Plan: 74-year-old type 2 diabetic with neuropathy, nephropathy and retinopathy recently changed to 70/30 insulin with high numbers. Will increase dosing, initiate titration and start him on extended release metformin to see if he can tolerate this. First week he will take 1 tablet and titrate upward 2nd week if he is tolerating. New dosing: NovoLog 70/30 Before breakfast 30 units Before supper 30 units If a.m. readings over 200 increase p.m. dose by 2 units every 3 days. If p.m. readings over 200 increase a.m. dose by 2 units every 3 days He verbalized understanding of titration and if having difficulty with continued high numbers he will call otherwise I will see him back the week of June. He has lab orders in the system and was asked to have labs over the next 6 weeks. MALA ordered The patient had an opportunity to ask questions regarding treatment plan. The patient expressed understanding and agreement with the above treatment plan. The patient is aware they should contact our office by phone for worsening glucose readings or for any low blood sugars which may warrant a change in diabetes medication. Compliance is encouraged with medications and any followup testing/consults which may have been ordered. The patient had an opportunity to ask questions regarding treatment plan. The patient expressed understanding and agreement with the above treatment plan. The patient is aware they should contact our office by phone for worsening glucose readings or for any low blood sugars which may warrant a change in diabetes medication. Compliance is encouraged with medications and any followup testing/consults which may have been ordered. (2) Peripheral Vascular Disease: Code(s): I73.9 - Peripheral vascular disease, unspecified Plan: r/o mala ordered per [place] diabetes association recommendations Orders: Orders US MALA complete Today I73.9 - Peripheral vascular disease, unspecified Complete Blood Count no Diff Today E11.29 - Type 2 diabetes mellitus with other diabetic kidney complication Medications: New metformin ER 500 mg PO BID 30 days 60 tabs 11RF E11.42 - Type 2 diabetes mellitus with diabetic polyneuropathy, Z79.4 - half-way (current) use of insulin Changed From insulin asp prt-insulin aspart 100 unit/mL (70-30) (Novolog Mix 70- 30FlexPen U-100) 16 units (0.16 mL) subcut BID 90 days 28.8 mL 4RF E11.42 - Type 2 diabetes mellitus with diabetic polyneuropathy, Z79.4 - lobsterman (current) use of insulin To insulin asp prt-insulin aspart 100 unit/mL (70-30) (Novolog Mix 70-30FlexPen U-100) 30 units before breakfast and supper increase dose by 2 units every 3 days till glucose less than 150 subcutaneously 2 times a day; 90 days 72 mL 4RF E11.42 - Type 2 diabetes mellitus with diabetic polyneuropathy, Z79.4 - lobsterman (current) use of insulin Refilled insulin asp prt-insulin aspart 100 unit/mL (70-30) (Novolog Mix 70-30FlexPen U- 100) 30 units before breakfast and supper increase dose by 2 units every 3 days till glucose less than 150 subcutaneously 2 times a day; 90 days 72 mL 4RF E11.42 - Type 2 diabetes mellitus with diabetic polyneuropathy, Z79.4 - lobsterman (current) use of insulin Discontinued dulaglutide (Trcalista) Discontinued Reason: No Longer Medically Relevant 1.5 mg (0.5 mL) subcut QWEEK 84 days 12 ea 3RF E11.42 - Type 2 diabetes mellitus with diabetic polyneuropathy, Z79.4 - half-way (current) use of insulin Patient Instructions: The patient was counseled to achieve a target A1C of 7% (154 avg). Fasting blood sugars should be 90-130 in the morning and less than 180 two hours after meals. Reviewed the relationship between poor diabetic control and the development of complications. The patient was counseled to always carry a source of sugar. Wear closed toe shoes, never walk barefooted and inspect the feet daily. For any signs of infection or open wound patient you should notify your PCP or go to urgent care/ER. Coding Level of Care Code Est Pt Level 4 (94199) Complex EM visit Add On G2211 Diagnoses Type 2 diabetes mellitus with other diabetic kidney complication E11.29 Peripheral Vascular Disease I73.9 Time Spent (min) 45 Comment Time spent reviewing labs/provider notes, face to face, chart doc
[2024-04-19 09:55] VITALS: BP 122/58; PULSE 99; BMI 28.4
[2024-04-19 10:03] LABS: Glucose, Whole Blood 277 mg/dL (60-115)
== END 2024-04-19 10:20 | disposition home or self-care (01) ==
LOC: HO.ENCR 09:50
PROVIDERS: PCP Internal Medicine; Visit Provider Nurse Practitioner Adult Health
DX: E11.29 Type 2 diabetes mellitus with other diabetic kidney complication (principal); I73.9 Peripheral vascular disease, unspecified
CPT/HCPCS: 99214; G2211

== ENCOUNTER → 2024-04-19 09:49 | Outpatient (BNVA) | payer MEDICARE, SELFPAY | PROVIDERS: PCP Internal Medicine; Visit Provider Nurse Practitioner Adult Health | DX: E11.29 Type 2 diabetes mellitus with other diabetic kidney complication (principal); E11.3599 Type 2 diabetes mellitus with proliferative diabetic retinopathy without macular edema, unspecified eye; E11.21 Type 2 diabetes mellitus with diabetic nephropathy; E11.42 Type 2 diabetes mellitus with diabetic polyneuropathy; E11.51 Type 2 diabetes mellitus with diabetic peripheral angiopathy without gangrene; Z79.4 Long term (current) use of insulin | CPT/HCPCS: 82947; 99212 ==

== ENCOUNTER 2024-05-01 14:41 | Outpatient (REF) | payer MEDICARE, SELFPAY ==
--- NOTE | ~2024-05-01 | US_ITS ---
EXAMINATION: NONINVASIVE ASSESSMENT OF THE ARTERIES OF BOTH LOWER EXTREMITIES CLINICAL INFORMATION: Peripheral vascular disease. COMPARISON: None. TECHNIQUE: Segmental ankle pulse volume recording, pressure measurement at the ankle and ankle brachial indices were obtained of the lower extremity arterial system bilaterally. This study was performed at rest only. FINDINGS: a) AT REST: 1. The ankle-brachial indices are: Right 0.92 and left 0.57. >0.97-1.25 = normal - no significant arterial disease. 0.75-0.96 = mild peripheral arterial disease. 0.5-0.74 = moderate peripheral arterial disease. <0.50 = severe peripheral arterial disease. 2. Segmental pressure at ankle: Decreased. 3. PVR waveform at ankle: Blunted bilaterally, left significantly greater than right. US/US MALA complete IMPRESSION: 1. Right MALA 0.92 consistent with mild peripheral arterial disease. 2. Left MALA 0.57 consistent with moderate peripheral arterial disease. Electronically signed by: Rajiv Siegel MD 05/16/2024 12:19 AM HILARIO RAMIREZ
== END 2024-05-01 14:42 | disposition home or self-care (01) ==
LOC: HO.US 14:41
PROVIDERS: PCP Internal Medicine; Visit Provider Nurse Practitioner Adult Health
DX: I73.9 Peripheral vascular disease, unspecified (principal)
CPT/HCPCS: 93923

== ENCOUNTER 2024-05-31 10:27 | Outpatient (REF) | payer MEDICARE, SELFPAY ==
[2024-05-31 13:50] LABS: Alanine Aminotransferase 21 U/L (0-40); Anion Gap 10 (12-20); Aspartate Amino Transferase 21 U/L (5-37); Blood Urea Nitrogen 22 mg/dL (9-16); Calcium 8.6 mg/dL (8.4-10.2); Carbon Dioxide 26 mmol/L (22-29); Chloride 104 mmol/L (96-108); Cholesterol 196 mg/dL (<200); Estimated Glomerular Filt Rate > 60; Glucose Fasting 318 mg/dL (60-99); HDL Cholesterol 37 mg/dL (>40); LDL Cholesterol Calculated 84 mg/dL (<100); Potassium 3.8 mmol/L (3.3-5.1); Sodium 136 mmol/L (135-145); Triglycerides 375 mg/dL (<150)
== END 2024-05-31 10:28 | disposition home or self-care (01) ==
LOC: HO.HMGCLDS 10:27
PROVIDERS: PCP Internal Medicine; Visit Provider Internal Medicine
DX: E78.5 Hyperlipidemia, unspecified (principal); I10 Essential (primary) hypertension
CPT/HCPCS: 36415; 80048; 80061; 84450; 84460

== ENCOUNTER 2024-06-21 09:55 | Outpatient (AMB) | payer MEDICARE, SELFPAY ==
--- NOTE | 2024-06-21 07:16 | A.OFFVIS_ITS ---
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 He was last seen 04/19/2024 and was changed to 75/25 insulin secondary to high co-pay is on his other insulin. Hgb A1C: 06/21/24:14 % 03/22/24 10.2% down from 14%. At his last visit he was given a simple adjustment sheet and was asked to increase his insulin by 2 units every 3 days if his readings were over 200. He made that adjustment only twice Glucose readings are running 300 in the morning, 500 later in the day. He feels well PMH: HLD, DM2, Micro and macrovascular complications: + mild proliferative retinopathy, + nephropathy, +neuropathy, He was unable to tolerate metformin 1 g due to GI side effects, but has been able to tolerate 500 mg XR twice daily had been prescribed Trulicity in the past but could not afford co-pay, prescribed Farxiga in the past but did not start. He now has new insurance Diabetes medications: Metformin 500mg XR bid NovoLog 70/30 Before breakfast 34 units Before supper 34 units If a.m. readings over 200 increase p.m. dose by 2 units every 3 days. If p.m. readings over 200 increase a.m. dose by 2 units every 3 days Sugars by meter running: Eye exam: last exam appt he reports no retinopathy ,EHR indicate h/o mild proliferative retinopathy Nephropathy: EGFR>60 06/0607/28/23 microalbumin:58 HLD on statin LDL 84 06/06 Has neuropathy: Symptoms reported Hypoglycemia:no Physical activity: Walks about 3/4 - 1 mile most days Recent MALA shows possible moderate stenosis left leg. Dulex ordered [facility] [place] Medical History Personal history of nicotine dependence Chest discomfort Intermittent palpitations Hx of skin malignancy Essential (primary) hypertension Vitamin D deficiency, unspecified Dyslipidemia, goal LDL below 100 Proteinuria, unspecified Type 2 diabetes mellitus with other diabetic kidney complication (~2009) Type 2 diabetes mellitus with diabetic polyneuropathy (~2009) Surgical History History of colonoscopy History of esophagogastroduodenoscopy (EGD) History of left inguinal hernia repair History of appendectomy History of squamous cell carcinoma excision Family History Father No problems noted. Mother Diabetes Social History Household Members: Family Household Members Other:: Daughter Housing: House Patient Tobacco Use Status: Current someday Tobacco user Tobacco use type: Cigarette Years Smoked: (Onset 16yo, 1ppd x 55yrs, 50pyh, quit 2018) e-Cigarette/Vaping Use: Never Used Current occupational status: employed Cognitive needs: Yes Hearing needs: No Vision needs: No Physical Exam Vital Signs: Last Vital Signs Pulse 74 06/21/24 10:01 BP 126/78 06/21/24 10:01 BMI result Body Mass Index 29.6 Const Other: Absence of Cushingoid features. Absence of acromegalic features. Neck exam reveals nl size thyroid about 15 gms. No thyroid nodules palpable. No carotid bruits present. Lungs CTA. Heart S1 S2, Reg R/R. No M/R G. Skin exam reveals absence of vitiligo or acanthosis nigricans. No edema Visual exam of foot performed. No ulcerations or open lesions. No inter digit maceration or fissuring. No onychomycosis, no callouses. Sensation intact to monofilament exam. Vibratory sensation is normal with 128 Hz tuning fork. Results AMB Hemoglobin A1c AMB Hemoglobin A1c > 14.0 % Last Edit by TED Irizarry on 06/21/24 10 :27 Results Reviewed Results Reviewed: Laboratory Last Values Glucose (Clinic) 264 mg/dL (60-115) H 06/21/24 10:07 Assessment & Plan Assessment & Plan (1) Type 2 diabetes mellitus with diabetic polyneuropathy: Onset Date: ~2009 Code(s): E11.42 - Type 2 diabetes mellitus with diabetic polyneuropathy Category: Medical Qualifiers: Diabetes mellitus manager terminal insulin use: with halfway use Qualified C ode(s): E11.42 - Type 2 diabetes mellitus with diabetic polyneuropathy; Z79.4 - halfway (current) use of insulin Plan: 74-year-old type 2 diabetic with neuropathy, nephropathy and retinopathy recently started metformin and was changed to 70/30 insulin due to high copay on other insulins. A1C 06/21/24 14% from 14%->10.2% over the past year. NovoLog 70/30 Before breakfast 46 units Before supper 46 units If a.m. readings over 200 increase p.m. dose by 3 units every 2 days. If p.m. readings over 200 increase a.m. dose by 3 units every 2 days The patient had an opportunity to ask questions regarding treatment plan. The patient expressed understanding and agreement with the above treatment plan. The patient is aware they should contact our office by phone for worsening glucose readings or for any low blood sugars which may warrant a change in diabetes medication. Compliance is encouraged with medications and any followup testing/consults which may have been ordered. 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 Fasting blood sugars should be 90-130 in the morning and less than 180 two hours after meals. Reviewed the relationship between poor diabetic control and the development of complications. Check your feet daily looking for any signs of infection, ulceration and seek medical attention if this occurs. Break in shoes gradually and do not wear open-toed shoes or walk barefooted. The patient was counseled to always carry a source of sugar and on the rule of 15's: Take 3 glucose tablets and repeat again in 15 minutes if blood sugar is not in normal range. Continue to repeat every 15 minutes until blood sugar is normal. Coding Level of Care Code Est Pt Level 4 (37035) Diagnoses Type 2 diabetes mellitus with diabetic polyneuropathy, with long-term current use of insulin E11.42; Z79.4 Diabetes mellitus manager terminal insulin use: with halfway use Time Spent (min) 35 Comment Time spent reviewing labs/provider notes, face to face, chart doc
[2024-06-21 10:01] VITALS: BP 126/78; PULSE 74; BMI 29.6
[2024-06-21 10:11] LABS: Glucose, Whole Blood 264 mg/dL (60-115)
== END 2024-06-21 10:42 | disposition home or self-care (01) ==
PROVIDERS: PCP Internal Medicine; Visit Provider Nurse Practitioner Adult Health
DX: E11.42 Type 2 diabetes mellitus with diabetic polyneuropathy (principal); Z79.4 Long term (current) use of insulin
CPT/HCPCS: 99214

== ENCOUNTER → 2024-06-21 09:55 | Outpatient (BNVA) | payer MEDICARE, SELFPAY | PROVIDERS: PCP Internal Medicine; Visit Provider Nurse Practitioner Adult Health | DX: E11.42 Type 2 diabetes mellitus with diabetic polyneuropathy (principal); Z79.4 Long term (current) use of insulin; Z79.84 Long term (current) use of oral hypoglycemic drugs | CPT/HCPCS: 82947; 83036; 99212 ==

== ENCOUNTER 2024-06-29 10:43 | Outpatient (AMB) | payer MEDICARE, SELFPAY ==
--- NOTE | 2024-06-29 10:14 | A.OFFVIS_ITS ---
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 He was last seen one week ago and insulin was titrated upward. He was changed to 75/25 insulin 05/07 secondary to high co-pay on his other insulin. Hgb A1C: 06/21/24:14 % 03/22/24 10.2% down from 14%. PMH: HLD, DM2, Micro and macrovascular complications: + mild proliferative retinopathy, + nephropathy, +neuropathy, He was unable to tolerate metformin 1 g due to GI side effects, but has been able to tolerate 500 mg XR twice daily had been prescribed Trulicity in the past but could not afford co-pay, prescribed Farxiga in the past but did not start. He now has new insurance Diabetes medications: metformin xr 500mg bid NovoLog 70/30 Before breakfast 46 units Before supper 46 units If a.m. readings over 200 increase p.m. dose by 3 units every 2 days. If p.m. readings over 200 increase a.m. dose by 3 units every 2 days Since last visit Sugars by meter running: am all under 200, this am he was 145 he took his insulin this am before eating and had blood drawn this am and fasted for this. Glucose on arrival to clinic was 59. He was treated with small can of coke. (Declined sugar tablets) and recheck was 69. Against medical advice he declined furthur rx and stated I am going to have breakfast now Eye exam: last exam appt he reports no retinopathy ,EHR indicate h/o mild proliferative retinopathy 44 Nephropathy: EGFR>60 06/0607/28/23 microalbumin:58 HLD on statin LDL 84 06/06 Has neuropathy: Symptoms reported some numbness Hypoglycemia:no Physical activity: Walks about 3/4 - 1 mile most days Recent MALA shows possible moderate stenosis PFSH Medical History Peripheral arterial disease Personal history of nicotine dependence Chest discomfort Intermittent palpitations Hx of skin malignancy Essential (primary) hypertension Vitamin D deficiency, unspecified Dyslipidemia, goal LDL below 100 Proteinuria, unspecified Type 2 diabetes mellitus with other diabetic kidney complication (~2009) Type 2 diabetes mellitus with diabetic polyneuropathy (~2009) Surgical History History of colonoscopy History of esophagogastroduodenoscopy (EGD) History of left inguinal hernia repair History of appendectomy History of squamous cell carcinoma excision Family History Father No problems noted. Mother Diabetes Social History Household Members: Family Household Members Other:: Daughter Housing: House Patient Tobacco Use Status: Current someday Tobacco user Tobacco use type: Cigarette Years Smoked: (Onset 16yo, 1ppd x 55yrs, 50pyh, quit 2019) e-Cigarette/Vaping Use: Never Used Current occupational status: employed Cognitive needs: Yes Hearing needs: No Vision needs: No Physical Exam Vital Signs: Last Vital Signs Pulse 96 06/29/24 10:58 BP 120/68 06/29/24 10:58 BMI result Body Mass Index 30.2 Const Other: Absence of Cushingoid features. Absence of acromegalic features. Neck exam reveals nl size thyroid about 15 gms. No thyroid nodules palpable. Heart S1 S2, Reg R/R. No M/R G. Skin exam reveals absence of vitiligo or acanthosis nigricans. 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 He was again counseled the his insulin as a mealtime insulin and should be taken immediately before breakfast and supper. He was treated and numbers hardik to 69 and he declined further Rx against medical advice. He will eating breakfast immediately. HE was counseled should he be in an auto accident it could lead to harm to self, others and loss of license. He has had no other low sugars. Continue metformin xr 500mg bid New dosing of insulin: 70/30 before breakfast 50 units before supper 46 units do not take until right before the meal referred to vascular Orders: Referrals Vascular Surgery Referral I73.9 - Peripheral vascular disease, unspecified Patient Instructions: The patient was counseled to always carry a source of sugar and on the rule of 15's: Take 3 glucose tablets and repeat again in 15 minutes if blood sugar is not in normal range. Continue to repeat every 15 minutes until blood sugar is normal. 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
[2024-06-29 10:58] VITALS: BP 120/68; PULSE 96; BMI 30.2
[2024-06-29 11:08] LABS: Glucose, Whole Blood 51 mg/dL (60-115)
[2024-06-29 11:24] LABS: Glucose, Whole Blood 69 mg/dL (60-115)
== END 2024-06-29 11:23 | disposition home or self-care (01) ==
PROVIDERS: PCP Internal Medicine; Visit Provider Nurse Practitioner Adult Health
DX: E11.42 Type 2 diabetes mellitus with diabetic polyneuropathy (principal); Z79.4 Long term (current) use of insulin
CPT/HCPCS: 99214; G2211

== ENCOUNTER 2024-07-05 10:51 | Outpatient (AMB) | payer MEDICARE, SELFPAY ==
[2024-07-05 10:56] VITALS: BP 122/68; PULSE 90; O2SAT 96; BMI 30.4
--- NOTE | 2024-07-05 10:56 | AM.OFFVISMDC ---
Intake Vital Signs 07/05/24 10:56 Height 6 ft Weight 224 lb BMI 30.4 BP 122/68 Blood Pressure Location Lt brachial Position Sitting Pulse 90 Pulse Source Pulse Oximeter Pulse Oximetry (%) 96 Intake Visit Reasons: SWV G0439 Intake Note: pt is here for MWV Brain Surgeon Required: No Accompanied by: Self / Same As Patient Allergies lisinopril Allergy (Unknown, Verified 07/05/24 11:06) lip swelling and cough, dizzy Medication List - Last Reconciled 07/05/24 by Rochelle Gibbons MD amlodipine 5 mg PO QPM aspirin (Adult Low Dose Aspirin) 81 mg PO DAILY blood sugar diagnostic (Socitive Verio test strips) As directed 4 times a day blood-glucose meter (Socitive Verio Flex Start kit) As directed to test blood glucose two times a day dicyclomine 20 mg PO QID insulin asp prt-insulin aspart 100 unit/mL (70-30) (Novolog Mix 70-30FlexPen U-100) 30 units before breakfast and supper increase dose by 2 units every 3 days till glucose less than 150 subcutaneously 2 times a day; 90 days lancets (Socitive Delica Lancets) As directed twice a day losartan 100 mg PO DAILY metformin ER 500 mg PO BID 30 days omega-3 fatty acids (Fish Oil Concentrate) 1,000 mg PO DAILY pen needle, diabetic (Droplet Pen Needle) USE DIRECTED ONE TIME DAILY simvastatin 20 mg PO BEDTIME tadalafil 5 mg PO DAILY 90 days Do you need a note to return to daycare/school/sports/work: No HPI V G0439 HPI Details AWV ? 74-year-old male with past medical history significant for Diabetes mellitus, Peripheral vascular disease, dyslipidemia, essential hypertension, presents for his ? Annual Wellness Visit, initial visit.? He [place] [facility] [place], with latest fasting blood sugar 69 mg per dL on 06/29/2024 but hemoglobin is A1c last month was over 14%. Had recent adjustments in his diabetic medications. His fasting lipid panel done 05/31/2024 showed normal LDL cholesterol but elevated triglycerides. He is currently taking simvastatin 20 mg at bedtime and [place] 3 fatty acid supplements 1 capsule daily. Blood pressure has been stable controlled on present treatment, currently on losartan 100 mg once daily and amlodipine 5 mg 1 tablet at bedtime. He is up-to-date with his screening colonoscopy , last done by Dr. Wyatt 09/21/2018 with normal findings, repeat due again in 2028. He sees Urology for history of bladder outlet obstruction and nocturia, last PSA was normal at 0.7 done 10/31/2022. He is up-to-date with his yearly flu shot, up-to-date with his pneumococcal vaccination, Tdap and shingles vaccine, but does not want to get any further COVID booster vaccine. ? Medical / Social History Reviewed? Past Medical History ?Yes . ? [place] of Care / Care Team list updated ?Yes . ? Surgical/Hospitalization History ?Yes . ? Current Medications (including OTC and supplements) ?Yes . ? Family History ?Yes . ? Tobacco Control form ?Yes . ? AUDIT-C (Alcohol use) form ?Yes . ? Illicit drug use in Social History ?Yes . ? Current diagnosis of depression? ?No ? Appropriate PHQ2/PHQ9 completed ?Yes . ? Data entered by ?T[employer]icker and reviewed by provider ? Fall Risk ? Fall History? Have you had any falls with injury in the past year? ?No . ? Have you had two or more falls in the past year? ?No . ? Fall Risk Assessment: ?No falls in the past year . ? HRA filled out by the patient, reviewed by Provider and scanned. ? AWV ? Balance? Romberg ?negative ? Tandem walk ?Yes . ? Walk and Turn ?Yes . ? Rise from sit to stand ?Yes . ?Vision? Corrective lens ?Yes ? Vision screen ? Up-to-date, sees [facility] . Dr Ann , last seen 09/13/23 , no retinopathy, patient states he has gotten upcoming appointment scheduled with him on 08/01/2024 ?Hearing? Whisper test ?pass . ?Written Plan?Completed. See Patient Documents.? [facility] Medical History (Updated 07/05/24 @ 11:37 by Rochelle Gibbons MD) Peripheral arterial disease Personal history of nicotine dependence Chest discomfort Intermittent palpitations Hx of skin malignancy Essential (primary) hypertension Vitamin D deficiency, unspecified Dyslipidemia, goal LDL below 100 Proteinuria, unspecified Type 2 diabetes mellitus with other diabetic kidney complication (~2009) Type 2 diabetes mellitus with diabetic polyneuropathy (~2009) Surgical History History of colonoscopy History of esophagogastroduodenoscopy (EGD) History of left inguinal hernia repair History of appendectomy History of squamous cell carcinoma excision Family History Father No problems noted. Mother Diabetes Social History Household Members: Family Household Members Other:: Daughter Housing: House Patient Tobacco Use Status: Current someday Tobacco user Tobacco use type: Cigarette Years Smoked: (Onset 16yo, 1ppd x 55yrs, 50pyh, quit 2019) e-Cigarette/Vaping Use: Never Used Current occupational status: employed Cognitive needs: Yes Hearing needs: No Vision needs: No Questionnaire Medicare Wellness Checkup [age] What gender do you identify with?: male During the past 4 weeks, how much have you been bothered by emotional problems such as feeling anxious, depressed, irritable, sad or downhearted, and blue?: not at all During the past 4 weeks, has your physical & emotional health limited your social activities with family, friends, neighbors, or groups?: not at all During the past 4 weeks, how much bodily pain have you generally had?: no pain During the past 4 weeks, was someone available to help you if you needed & wanted help?: yes, as much as I wanted During the past 4 weeks, what was the hardest physical activity you could do for at least 2 minutes?: heavy Can you get to places out of walking distance without help? (For eg., can you travel alone on buses, taxis or drive your car?): Yes Can you go shopping for groceries or clothes without someone's help?: Yes Can you prepare your own meals?: Yes Can you do your housework without help?: Yes Because of any health problems, do you need the help of another person with your personal care needs such as eating, bathing, dressing or getting around the house?: No Can you handle your own money without help?: Yes During the past 4 weeks, how would you rate your health in general?: very good During the past 4 weeks how have things been going for you?: very well; could hardly better Are you having difficulties driving your car?: no Do you always fasten your seat belt when you are in a car?: yes, sometimes During past 4 weeks, have you been bothered by the following: never: Falling or dizzy when standing up, Trouble eating well?, Teeth or denture problems? and Problems using the telephone?, seldom: Sexual problems? and sometimes: Tiredness or fatigue? Have you fallen 2 or more times in the past year?: No Are you afraid of falling?: No Are you a smoker?: yes, and I might quit During the past 4 weeks, how many drinks of wine, beer, or other alcoholic beverages did you have?: no alcohol at all Do you exercise for about 20 minutes 3 or more times a week?: yes, some of the time Have you been given information to help with the following?: no: Hazards in your house that might hurt you? and no: Keeping track of your medications? How often do you have trouble taking medicines the way you have been told to take them?: I always take medicine as prescribed How confident are you that you can control & manage most of your health problems?: very confident What is your race?: White Mini Mental State Exam (MMSE) Orientation What is the (year) (season) (date) (day) (month)?: year (2024), season (winter), date (07/05/2024), day (wednesday) and month (june) Where are we (state) (county) (town or city) (hospital) (floor)?: state ([place]), county ([place]), [place] [place] [place] Score Score: 9 Activity of Daily Living Bathing - sponge bath, tub bath or shower: receives no assistance (gets in/out by self, if usual bathing means Dressing - getting clothes from closets & drawers, including inner/outer garments & fasteners.: gets clothes & gets completely dressed without help Toileting - going to the 'toilet room' for urine/bowel elimination & cleaning self/arranging clothes: goes to toilet room, cleans self, arranges clothes without help Transfer: moves in & out of bed and chair without help (may use support object) Continence: controls urination/bowel movements completely by self Feeding: feeds self without help Total Score: 0 Information obtained from: patient Using telephone: independent Traveling: independent Shopping: independent Preparing meals: independent Housework: independent Taking medicine: independent Managing money: independent PHQ-9 Over the last 2 weeks, how often have you been bothered by any of the following problems? 1. Little interest or pleasure in doing things: not at all 2. Feeling down, depressed, or hopeless: not at all 3. Trouble falling or staying asleep, or sleeping too much: not at all 4. Feeling tired or having little energy: several days 5. Poor appetite or overeating: not at all 6. Feeling bad about yourself - or that you are a failure or have let yourself or your family down: not at all 7. Trouble concentrating on things, such as reading the newspaper or watching television: not at all 8. Moving or speaking so slowly that other people could have noticed. Or the opposite - being so fidgety or restless that you have been moving around a lot more than usual: not at all 9. Thoughts that you would be better off or of hurting yourself in some way: not at all Total score: 1 Depression Screening Interpretation: Negative Depression Screening Done: Yes 95525 - PHQ-9 Billing: Yes Source: Developed by Drs. Alexandro Claros, Rosa M Barnes, Demetri Agosto and colleagues, with an educational ely from [employer]. Physical Exam Vital Signs: Last Vital Signs Pulse 90 07/05/24 10:56 BP 122/68 07/05/24 10:56 Pulse Ox 96 07/05/24 10:56 BMI result Body Mass Index 30.4 Assessment & Plan Assessment & Plan (1) Encounter for initial annual wellness visit (AWV) in Medicare patient: Code(s): Z00.00 - Encounter for general adult medical examination without abnormal findings Plan: Medical wellness checklist reviewed, discussed with patient and updated. Up-to-date with his colonoscopy, and vaccines. (2) Peripheral vascular disease: Code(s): I73.9 - Peripheral vascular disease, unspecified Plan: Continue aspirin 81 mg (3) Essential (primary) hypertension: Code(s): I10 - Essential (primary) hypertension Plan: Continue amlodipine and losartan (4) Dyslipidemia, goal LDL below 100: Code(s): E78.5 - Hyperlipidemia, unspecified Plan: Continue simvastatin (5) Type 2 diabetes mellitus with diabetic polyneuropathy: Onset Date: ~2009 Code(s): E11.42 - Type 2 diabetes mellitus with diabetic polyneuropathy Qualifiers: Diabetes mellitus correction insulin use: with watermelon inspector use Qualified Code(s): E11.42 - Type 2 diabetes mellitus with diabetic polyneuropathy; Z79.4 - longterm (current) use of insulin Plan: Currently on metformin ER 500 mg twice a day and NovoLog mix 70 30 FlexPen, followed by endocrine clinic (6) Advanced directives, counseling/discussion: Code(s): Z71.89 - Other specified counseling Plan: Initiated the conversation about Advanced Directives. Advanced Directives help patients prepare for current and future decisions about their medical treatment and place of care. Discussed with patient that it is a process where a patients current condition and prognosis are reviewed, their wishes for information regarding their illness are elicited, and likely medical dilemmas are presented and options discussed. Healthcare proxy form and MOLST form completed today. These forms can be amended as needed, reviewed yearly and make changes as needed Medications: Refilled pen needle, diabetic (Droplet Pen Needle) USE DIRECTED ONE TIME DAILY 100 ea 3RF E11.42 - Type 2 diabetes mellitus with diabetic polyneuropathy, Z79.4 - terminal system operator (current) use of insulin Quality Reporting (2019) Depression/Bipolar (159/160/161/177) PHQ-9: Total score: 1 Coding Level of Care Code Medicare First (G0438) Diagnoses Encounter for initial annual wellness visit (AWV) in Medicare patient Z00.00 Peripheral vascular disease I73.9 Essential (primary) hypertension I10 Dyslipidemia, goal LDL below 100 E78.5 Type 2 diabetes mellitus with diabetic polyneuropathy, with long-term current use of insulin E11.42; Z79.4 Diabetes mellitus watermelon inspector insulin use: with correction use Advanced directives, counseling/discussion Z71.89 CPT Codes Advance Care Planning - Time spent: 16-45 minutes ([id number]) Additional Codes PHQ-9 - 62160 - PHQ-9 Billing: Yes ([id number]) Advance Care Planning Advance Care Planning discussion: Completed/Scanned Date of discussion: 07/05/24 Who was present: patient Forms completed: Health Care Proxy and MOLST Time spent: 16-45 minutes Actual minutes spent: 10
== END 2024-07-05 11:45 | disposition home or self-care (01) ==
PROVIDERS: PCP Internal Medicine; Visit Provider Internal Medicine
DX: Z00.00 Encounter for general adult medical examination without abnormal findings (principal); I73.9 Peripheral vascular disease, unspecified; E11.42 Type 2 diabetes mellitus with diabetic polyneuropathy; Z79.4 Long term (current) use of insulin; I10 Essential (primary) hypertension; E78.5 Hyperlipidemia, unspecified; Z71.89 Other specified counseling

== ENCOUNTER → 2024-07-05 10:51 | Outpatient (BNVA) | payer MEDICARE, SELFPAY | PROVIDERS: PCP Internal Medicine; Visit Provider Internal Medicine | DX: Z00.00 Encounter for general adult medical examination without abnormal findings (principal); I73.9 Peripheral vascular disease, unspecified; I10 Essential (primary) hypertension; E78.5 Hyperlipidemia, unspecified; E11.42 Type 2 diabetes mellitus with diabetic polyneuropathy; Z79.4 Long term (current) use of insulin; Z71.89 Other specified counseling | CPT/HCPCS: 96127 ==

== ENCOUNTER 2024-07-11 15:22 | Outpatient (AMB) | payer MEDICARE, SELFPAY ==
--- NOTE | 2024-07-11 15:31 | MHC.OFFVIS ---
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 No complaints. 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 He has been followed by the primary care team and at the time of his visit it was noted to have some lower extremity pain. Upon discussion with him he is able to walk 3-4 blocks and recognizes that he has hip pain before any other additional pain. Of note he does continue to smoke about a half a pack per day. He is a diabetic for over 10 years and his last hemoglobin A1c on 06/21/2024 was 14. He now presents for vascular evaluation [facility] Medical History Peripheral arterial disease Personal history of nicotine dependence Chest discomfort Intermittent palpitations Hx of skin malignancy Essential (primary) hypertension Vitamin D deficiency, unspecified Dyslipidemia, goal LDL below 100 Proteinuria, unspecified Type 2 diabetes mellitus with other diabetic kidney complication (~2009) Type 2 diabetes mellitus with diabetic polyneuropathy (~2009) Surgical History History of colonoscopy History of esophagogastroduodenoscopy (EGD) History of left inguinal hernia repair History of appendectomy History of squamous cell carcinoma excision Family History Father No problems noted. Mother Diabetes Social History Household Members: Family Household Members Other:: Daughter Housing: House Patient Tobacco Use Status: Current someday Tobacco user Tobacco use type: Cigarette Years Smoked: (Onset 16yo, 1ppd x 55yrs, 50pyh, quit 2018) e-Cigarette/Vaping Use: Never Used Current occupational status: employed Cognitive needs: Yes Hearing needs: No Vision needs: No Review of Systems Const All systems reviewed & are unremarkable except as noted in HPI and below Reports no additional complaints ENT Reports Normal hearing present Card Denies chest pain, Denies chest pain at rest, Denies chest pain with activity and Denies pedal edema Resp Denies cough GI Denies abdominal pain Musc Denies abnormal gait, Denies muscle cramps and Denies radiating pain into limb Skin/Breast Denies skin ulcer and Denies wounds Neuro Reports Normal hearing present and Denies abnormal gait Psych Reports no additional complaints Physical Exam Const General: cooperative, healthy appearing and comfortable Orientation/consciousness: oriented to person, oriented to place and oriented to time HEENT Head: Yes normal to inspection Neck Neck: Yes normal visual inspection Carotids: no bruits Chest Chest palpation & inspection: normal inspection of the chest Resp Effort & Inspection: normal respiratory effort and able to speak in complete sentences Auscultation: clear to auscultation bilaterally, no crackles, no rales, no rhonchi and no wheezes Cardio Other: Bilateral DP signals Rate: regular rate Rhythm: regular rhythm Heart sounds: S1 normal heart sound present and S2 normal heart sound present Bruits: no carotid bruits Peripheral pulses: Peripheral pulses 2+ throughout GI Inspection: Yes normal to inspection Skin Wounds: no wounds Hair: normal Neuro General: oriented to person, oriented to place and oriented to time Cranial nerves: Yes CN's II-XII intact bilaterally and Yes Normal hearing present Cognition (Neuro): normal cognition Motor exam (neuro): 5/5 motor strength present throughout Extrem Other: venous exam: No significant superficial varicosities or spider telangiectasias, minimal edema General: No clubbing, No cyanosis and No edema Psych Appearance: grossly normal Mental Status: mental status grossly normal Speech and movement: Normal speech and movement present Results Reviewed Results Reviewed: Noninvasive arterial testing dated 05/01/2024 demonstrates MALA on the right of 0.92 and on the left of 0.57. Blunted waveforms on the left. Written report and images were reviewed. Assessment & Plan Assessment & Plan (1) Peripheral arterial disease: Code(s): I73.9 - Peripheral vascular disease, unspecified Category: Medical Plan: In short patient has stable claudication. Although his MALA is 0.57. I do think he is clinically stable and able to carry out every day functions of walking 3-4 blocks. I did review the pathophysiology of peripheral vascular disease with the patient. In addition we did discuss routine conservative measures including a healthy diet and the importance of exercise and ambulation. We did discuss risk factor modification. We did spend some time reviewing smoking cessation and the importance of diabetes control. The patient will continue to to follow-up with surveillance follow-up in approximately 1 year. Thank you for allowing us to participate in this patient's care. If there are any questions or concerns please do not hesitate to contact us. Orders: Orders US arterial duplex LE BI 1 Year I73.9 - Peripheral vascular disease, unspecified Coding Level of Care Code New Pt Level 4 (39600) Complex EM visit Add On G2211 Diagnoses Peripheral arterial disease I73.9
--- OUTSIDE RECORDS SUMMARY | 2024-07-11 16:20 | XMS_ITS | Data Portability ---
Author Organization RANDY Castellon s, [address] Address [address] [place] [address] Care Team Providers Care Pay Station Collector Name Role Phone [facility] Primary Care Provider SIMON WALKER Seo Intern Assessment No assessment recorded. Plan of Treatment Reminders Order Date Submit Date Provider Last Modified By Organization Details Last Modified Time Details Appointments None recorded. Lab None recorded. Referral physical therapist referral 2021 [email or web address] Not available 10:52:10 Procedures None recorded. Surgeries None recorded. Imaging XR, knee, 3 view 2021 [email or web address] [facility], [address] [place] [address], [address], 09:06:55 Medication Orders naproxen 500 mg tablet 2021 [facility], [address] [facility] [address] [facility], [place], [address], 17:45:25 Patient TargetsNo targets recorded. Patient Instructions Encounter Date Encounter Id Patient Instructions Last Modified By Organization Details Last Modified Time 05/25/2022 [id number] You should follow-up with your PCP in days, or at any time if your condition does not improve or worsens. Any acute change should prompt a visit to the nearest Emergency Department. Rest . Ice . Elevation . Limited activity . Advil or Tylenol for pain if tolerated. [email or web address] Not available 05/30/2022 08:14:23 06/03/2022 [id number] knee: exercises [email or web address] Not availab le 06/03/2022 17:45:23 Go to the [facility] emergency department if you develop ANY new or worsening symptoms. Call 911 if you feel that you are having a medical emergency. Call your primary care physician today to set up a follow up appointment within one week. Not following up with your primary care physician may result in adverse health conditions. If you have any questions or concerns, please call us. You should follow-up with your PCP in days, or at any time if your condition does not improve or worsens. Any acute change should prompt a visit to the nearest Emergency Department. Rest . Ice . Elevation . Limited activity . Advil or Tylenol for pain if tolerated. [email or web address] Not available 06/03/2022 18:03:01 06/14/2022 [id number] learning about rice (rest, ice, compression, and elevation) [email or web address] Not available 06/14/2022 16:01:18 physical therapy * - Need PT 3x/week x 4 week. right knee injured at work. worker comp. evaluation and treat. [email or web address] Not available 06/21/2022 08:23:24 MUSCULOSKELETAL- K NEE: Inspection of the knee shows no erythema, ecchymosis, or swelling. FROM was full/limited Palpation of the calf and popliteal fossa showed no mass or tenderness. Palpation of patella was nontender. Palpation of medial and lateral joint lines were nontender. Patella ? g rind-test? with NO crepitus. Valgus and Varus testing of the knee showed definite end points. Lateral collateral ligament was non tender. Medial collateral ligament was nontender. Anterior Drawer Maneuvers: Normal Posterior Drawer maneuvers: Normal gerber: Negative Caitie's Negative [email or web address] Not available 06/14/2022 15:55:58 Reason for Referral Physical Therapist Referral for Sprain of right knee Referring Physician: Daniel Morales, Urgent Care, Encounter Date: 06/03/2022 Results Created Date Observation Date Name Description Value Unit Range Abnormal Flag Note LastModifiedBy Organization Detail LastModifiedTime 05/25/20 22 05/25/2022 XR, knee, 3 view No observ ation record ed. [email or web address] [facility] [address] [facility] [place], [address], 05/25/2022 20:32:33 05/26/20 22 XR, knee, 3 view No observ ation record ed. [email or web address] [facility] [address] [facility] [place], [address], 05/26/2022 11:30:24 Result Notes None recorded. Problems Name Problem SNOMED Code Status Onset Date Resolution Date Notes Provider Name and Address Organization Details Recorded Time Hypertensive disorder 97076174 Active 2021 Angie rice, PA - [facility] 19:31:49 Hyperlipidemia 77469005 Active 2021 Angie rice, PA - [facility] 19:31:59 Type 2 diabetes mellitus 96799280 Active 2021 Angie rice, PA - [facility] 19:32:14 Problem Notes None recorded. Procedures Surgical History Date Name Laterality Status Provider Name and Address Organization Details Recorded Time 05/25/20 22 Jonathan Bandage completed Yareli Dixon MD [address] [place], [address], PA - [facility] 05/30/2022 08:16:06 05/25/20 22 KNEE IMMOBILIZER - 14 inches completed Yareli Dixon MD [address] [place], [address], PA - [facility] 05/30/2022 08:15:29 05/25/20 22 OC-BAT Screening Template NON DOT completed Angie Kaye PA - [facility] 05/25/2022 19:35:15 05/25/20 22 OC-UDS Send Out Template NON DOT completed Angie Kaye PA - [facility] 05/25/2022 19:36:30 06/14/19 21 hernia repair completed Angie Kaye PA - [facility] 05/25/2022 19:33:10 06/14/19 00 Appendectomy completed Angie Kaye PA - [facility] 05/25/2022 19:33:24 Imaging Results Imaging Date Name Status LastModified by Organiz ation Details LastModified Time 05/25/2022 XR, knee, 3 view completed [email or web address] [facility] [address] [place], [address], 05/25/2022 20:32:33 05/26/2022 XR, knee, 3 view completed [email or web address] [facility] [address] [place], [address], 05/26/2022 11:30:24 Procedure Notes None recorded. Medical Equipment None Reported. Medications Name Sig Start Date Stop Date Status Note LastModified by Organization Details LastModified Time naproxen 500 mg tablet TAKE 1 TABLET TWICE DAILY WITH FOOD active Not Available Not Available No t Available dicyclomine active Not Available Not A vailable Not Available amlodipine active Not Available Not Av ailable Not Available simvastatin active Not Available Not A vailable Not Available losartan active Not Available Not Avai lable Not Available metformin active Not Available Not Misty ilable Not Available Vitals Date Recorded Body height Provider Name an d Address Organization Details Last Updated DateTime 05/25/2022 182.88 cm Angie PADILLA - [facility] 05/25/2022 19:28:19 Date Recorded Body mass index (BMI) Body weight Provider Name and Address Organization Details Last Updated DateTime 05/25/2022 27.8 kg/m2 77173.44 g Angie Kaye PA - [facility] 05/25/2022 19:28:25 Date Recorded Pain severity - 0-10 verbal numeric rating [Score] - Reported Provider Name and Address Organization Details Last Updated DateTime 05/25/2022 8 Angie Kaye PA - [facility] 05/25/2022 19:28:31 Date Recorded Oxygen saturation Oxygen saturation in Arterial blood by Pulse oximetry Provider Name and Address Organization Details Last Updated DateTime 05/25/2022 99 % 99 % GUANACO TONY PA - [facility] 05/25/2022 19:31:12 Date Recorded Heart rate Provider Name an d Address Organization Details Last Updated DateTime 05/25/2022 89 /min GUANACO HOFFMANNITH PA - [facility] 05/25/2022 19:31:22 Date Recorded Respiratory rate Provider Name a nd Address Organization Details Last Updated DateTime 05/25/2022 20 /min GUANACO TONY PA - [facility] 05/25/2022 19:31:24 Date Recorded Body temperature Provider Name a nd Address Organization Details Last Updated DateTime 05/25/2022 98.2 [degF] GUANACO HOFFMANNITH PA - [facility] 05/25/2022 19:31:30 Date Recorded Body height Provider Name an d Address Organization Details Last Updated DateTime 06/03/2022 182.88 cm GUANACO HOFFMANNITH PA - [facility] 06/03/2022 17:31:57 Date Recorded Body mass index (BMI) Body weight Provider Name and Address Organization Details Last Updated DateTime 06/03/2022 28.9 kg/m2 78109.17 g GUANACO HOFFMANNITH PA - [facility] 06/03/2022 17:32:06 Date Recorded Pain severity - 0-10 verbal numeric rating [Score] - Reported Provider Name and Address Organization Details Last Updated DateTime 06/03/2022 8 GUANACO DESMITH PA - [facility] 06/03/2022 17:32:11 Date Recorded Oxygen saturation Oxygen saturation in Arterial blood by Pulse oximetry Provider Name and Address Organization Details Last Updated DateTime 06/03/2022 97 % 97 % GUANACO HOFFMANNITH PA - [facility] 06/03/2022 17:32:21 Date Recorded Heart rate Provider Name an d Address Organization Details Last Updated DateTime 06/03/2022 95 /min GUANACO HOFFMANNITH PA - [facility] 06/03/2022 17:32:24 Date Recorded Respiratory rate Provider Name a nd Address Organization Details Last Updated DateTime 06/03/2022 20 /min GUANACO HOFFMANNITH PA - [facility] 06/03/2022 17:32:26 Date Recorded Body temperature Provider Name a nd Address Organization Details Last Updated DateTime 06/03/2022 97.1 [degF] GUANACO HOFFMANNITH PA - [facility] 06/03/2022 17:32:30 Date Recorded Body height Provider Name an d Address Organization Details Last Updated DateTime 06/14/2022 182.88 cm LINWOOD BATRES PA - [facility] 06/14/2022 15:33:16 Date Recorded Pain severity - 0-10 verbal numeric rating [Score] - Reported Provider Name and Address Organization Details Last Updated DateTime 06/14/2022 0 LINWOOD BATRES PA - [facility] 06/14/2022 15:33:25 Date Recorded Respiratory rate Provider Name a nd Address Organization Details Last Updated DateTime 06/14/2022 18 /min LINWOOD BATRES PA - [facility] 06/14/2022 15:33:27 Date Recorded Body mass index (BMI) Body weight Provider Name and Address Organization Details Last Updated DateTime 06/14/2022 28.9 kg/m2 70085.17 g LINWOOD BATRES PA - [facility] 06/14/2022 15:37:35 Date Recorded Oxygen saturation Oxygen saturation in Arterial blood by Pulse oximetry Provider Name and Address Organization Details Last Updated DateTime 06/14/2022 98 % 98 % LINWOOD BATRES PA - [facility] 06/14/2022 15:38:00 Date Recorded Heart rate Provider Name an d Address Organization Details Last Updated DateTime 06/14/2022 86 /min LINWOOD BATRES PA - [facility] 06/14/2022 15:38:07 Date Recorded Body temperature Provider Name a nd Address Organization Details Last Updated DateTime 06/14/2022 97.1 [degF] LINWOOD BATRES PA - [facility] 06/14/2022 15:38:11 Date Recorded Systolic blood pressure Diastolic blood pressure Provider Name and Address Organization Details Last Updated DateTime 05/25/2022 143 mm[Hg] 72 mm[Hg] GUANACO TONY PA - [facility] 05/25/2022 19:31:08 Date Recorded Systolic blood pressure Diastolic blood pressure Provider Name and Address Organization Details Last Updated DateTime 06/03/2022 148 mm[Hg] 75 mm[Hg] GUANACO TONY PA - [facility] 06/03/2022 17:32:37 Date Recorded Systolic blood pressure Diastolic blood pressure Provider Name and Address Organization Details Last Updated DateTime 06/14/2022 145 mm[Hg] 73 mm[Hg] LINWOOD LIZZIEA PA - [facility] 06/14/2022 15:37:53 Social History Question Answer Notes LastModified by Organizat ion Details LastModified Time Tobacco Smoking Status Current Some Day Smoker Angie Kaye null, PA - [facility] 05/25/2022 19:32:47 What Is Your Level Of Alcohol Consumption? None [email or web address] Information not available 05/25/2022 Have You Had Direct Contact, Or Contact During Intimacy, With Monkeypox Rash, Scabs, Or Body Fluids From A Person With Monkeypox? No [email or web address] Information not available 05/25/2022 How Much Tobacco Do You Smoke? 1 PPW [email or web address] Information not available 05/25/2022 Do You Use Any Illicit Or Recreational Drugs? No [email or web address] Information not available 05/25/2022 Have You Recently Traveled Abroad? No [email or web address] Information not available 05/25/2022 Do You Or Have You Ever Used Any Other Forms Of Tobacco Or Nicotine? No [email or web address] Information not available 06/14/2022 Sex: Unknown Functional Status None recorded. Mental Status None recorded. Family History Nothing Reported. Medical History No medical history recorded. Immunizations Vaccine Type Date Status Note Provider Nam e and Address Organization Details Recorded Time COVID-19, mRNA, LNP-S, PF, 30 mcg/0.3 mL dose 1 completed GUANACO DESMITH null, PA - [facility] 06/03/2022 17:32:40 COVID-19, mRNA, LNP-S, PF, 30 mcg/0.3 mL dose 1 completed GUANACO DESMITH null, PA - [facility] 06/03/2022 17:32:40 Influenza, high-dose, trivalent, PF 9 completed GUANACO DESMITH null, PA - [facility] 06/03/2022 17:32:40 Influenza, high-dose, trivalent, PF 8 completed GUANACO DESMITH null, PA - [facility] 06/03/2022 17:32:40 Pneumococcal conjugate PCV 13 8 completed GUANACO DESMITH null, PA - [facility] 06/03/2022 17:32:40 pneumococcal polysaccharide PPV23 9 completed GUANACOETELVINA HOFFMANNITH null, PA - [facility] 06/03/2022 17:32:40 Influenza, high-dose, quadrivalent, PF 0 completed GUANACO DESMITH null, PA - [facility] 06/03/2022 17:32:40 Influenza, high-dose, trivalent, PF 8 completed GUANACO DESMITH null, PA - [facility] 06/03/2022 17:32:40 Tdap 8 completed GUANACO DESMITH null, PA - [facility] 06/03/2022 17:32:40 SARS-COV-2 (COVID-19) vaccine, UNSPECIFIED 2 completed Angie Kaye null, PA - [facility] 05/25/2022 19:31:31 Past Encounters Encounter ID Performer Location Encounter Start Date Encounter Closed Date Diagnosis/Indication Diagnosis SNOMED-CT Code Diagnosis ICD10 Code Diagnosis Note [id number] [address] [place] [address] 04/27/2020 12:38:30 04/27/2020 14:28:08 [id number] [place] [address] [place] [address] 05/25/2022 18:31:14 05/25/2022 20:01:04 History and physical examination, pre-employment 003222408 Z02.1 [id number] [place] [address] [place] [address] 05/25/2022 18:33:31 05/26/2022 09:06:55 Sprain of right knee [id number] 2694843 S83.91XA Examinatio n for work accident 697682578 Z04.2 [id number] RANDY [facility] [address] [facility] [address] [place] [address] 06/03/2022 17:18:17 06/03/2022 18:04:45 Sprain of right knee [id number] S83.91XD [id number] Ricardo Solo, [employer] [address] [facility] [address] [facility] [place] [address] 06/14/2022 15:07:33 06/14/2022 16:12:29 Pain of right knee joint [id number] 06291 M25.561 Accident [place] avila engaged in work-related activity 55527489 X58.XXXD Health Concerns Section Related Observation LastModified by Organization Detai ls LastModified Time None Recorded Concern Status LastModified by Organization Details LastModified Time None Recorded Advance Directives Directive None Recorded Payers Encounter Date Sequence Insurance Name Policy Number Policy Wolfe Covered Member ID Wolfe Member ID Guarantor Name 05/25/2022 GENERIC WORKER'S COMP (MOVED TO HOLD) PVTA Generic Employer Davin Anzalotti 05/25/2022 [employer] 06/03/2022 [employer] 06/14/2022 [employer] Notes Date Note Type Note Provider Name and Address Organization Details Recorded Time 05/25/2022 text/html KneeReported bypatient.Location: right Quality:throbbing; sharp; constant Severity:moderate Duration:1 days Context:twisting; work injury Associated Symptoms:no weakness; no numbness; no tingling; no swelling; no redness; no warmth; no ecchymosis; no catching/locking; no popping/clicking; no buckling; no grinding; no instability; no radiation down leg; no drainage; no fever; no chills; no weight loss; no change in bowel/bladder habits Previous Surgery:none Prior Imaging:noneNotes:Alfred coleman slipped on the ice while pulling back a load on an incline and his knee hyperextended and twisted Yareli Dixon MD [address] [place], [place] [address], [address], PA - [facility] 05/30/2022 08:16:27 06/03/2022 text/html KneeReported bypatient.Location: right Quality:throbbing; sharp; constant Severity:moderate Duration:1 days Context:twisting; work injury Associated Symptoms:no weakness; no numbness; no tingling; no swelling; no redness; no warmth; no ecchymosis; no catching/locking; no popping/clicking; no buckling; no grinding; no instability; no radiation down leg; no drainage; no fever; no chills; no weight loss; no change in bowel/bladder habits Previous Surgery:none Prior Imaging:noneNotes:Alfred coleman slipped on the ice while pulling back a load on an incline and his knee hyperextended and twisted last week. As of 06/03/22, patient feels that his knee is about 50% improved. Fatigues quickly with walking a lot. 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 RANDY Wesley [address] [facility] [place], [address], [employer] 06/03/2022 18:06:22 06/14/2022 text/html KneeReported bypatient.Notes:rig ht knee pain related to injury at work approximately 3 weeks ago. patient wants to go back to work full duty. did not follow up with physical therapy. Ricardo Solo NP [address] [facility], [address], [facility] [employer] 06/14/2022 16:49:44
== END 2024-07-11 15:54 | disposition home or self-care (01) ==
PROVIDERS: PCP Internal Medicine; Visit Provider Surgery Vascular Surgery
DX: I73.9 Peripheral vascular disease, unspecified (principal)
CPT/HCPCS: 99204; G2211

== ENCOUNTER → 2024-07-11 15:22 | Outpatient (BNVA) | payer MEDICARE, SELFPAY | PROVIDERS: PCP Internal Medicine; Visit Provider Surgery Vascular Surgery | DX: I73.9 Peripheral vascular disease, unspecified (principal) | CPT/HCPCS: 99202 ==

== ENCOUNTER → 2024-07-20 10:45 | Outpatient (BNVA) | payer MEDICARE, SELFPAY | PROVIDERS: PCP Internal Medicine; Visit Provider Nurse Practitioner Adult Health | DX: E11.42 Type 2 diabetes mellitus with diabetic polyneuropathy (principal); E11.21 Type 2 diabetes mellitus with diabetic nephropathy; E11.3599 Type 2 diabetes mellitus with proliferative diabetic retinopathy without macular edema, unspecified eye; E78.5 Hyperlipidemia, unspecified; Z79.4 Long term (current) use of insulin; Z79.84 Long term (current) use of oral hypoglycemic drugs | CPT/HCPCS: 82947; 99212 ==

== ENCOUNTER 2024-08-22 09:24 | Outpatient (AMB) | payer MEDICARE, SELFPAY ==
--- NOTE | 2024-08-22 07:26 | A.OFFVIS_ITS ---
Vital Signs 08/22/24 09:31 Height 6 ft Weight 231 lb 7.766 oz BMI 31.4 BP 130/80 Blood Pressure Location Rt brachial Position Sitting Pulse 96 Pulse Source Pulse Oximeter Pulse Oximetry (%) 98 Oxygen Delivery Method Room Air Intake Visit Reasons: T2DM Intake Note: Patient presents today for a follow-up for Type 2 Diabetes Mellitus: Last Diabetic eye exam was on: 06/2023 Last Podiatry exam was on: Does not see a Personal Financial Advisor Most recent HbA1c: >14.0%, 06/21/2024 Random Glucose- 201 mg/dL, Today Marine Steward Required: No Accompanied by: Self / Same As Patient Allergies lisinopril Allergy (Unknown, Verified 08/22/24 09:33) lip swelling and cough, dizzy Medication List - Last Reconciled 08/22/24 by Deena Mane NP amlodipine 5 mg PO QPM aspirin (Adult Low Dose Aspirin) 81 mg PO DAILY blood sugar diagnostic ([email or web address].fmTouch Verio test strips) As directed 4 times a day blood-glucose meter (miradio.fmTouch Verio Flex Start kit) As directed to test blood glucose two times a day dicyclomine 20 mg PO QID insulin asp prt-insulin aspart 100 unit/mL (70-30) (Novolog Mix 70-30FlexPen U- 100) 56 units before breakfast and 48 units before supper subcutaneously 2 times a day; 54 units before breakfast and 50 units before supper 90 days lancets (ClrTouchuch Delica Lancets) As directed twice a day losartan 100 mg PO DAILY metformin ER 500 mg PO BID 30 days omega-3 fatty acids (Fish Oil Concentrate) 1,000 mg PO DAILY pen needle, diabetic (BD Delmy 2nd Gen Pen Needle) twice daily simvastatin 20 mg PO BEDTIME tadalafil 5 mg PO DAILY 90 days HPI Comments Details: Patient is a 74 yo male with DM type 2 diagnosed around 2009 who presents for management of diabetes. He was last seen 07/20/24 for insulin titration and addition of Jardiance. He has been changed to 75/25 insulin 04/2024 secondary to high co-pay on his other insulin. Hgb A1C: 06/21/24:14 % 03/22/24 10.2%. PMH: HLD, DM2, PVD Micro and macrovascular complications: + mild proliferative retinopathy, + nephropathy, +neuropathy, He was unable to tolerate metformin 1 g due to GI side effects, but has been able to tolerate 500 mg XR twice daily until last few weeks when he needed to decrease to once daily. He had been prescribed Trulicity in the past but could not afford co-pay, prescribed Farxiga in the past but did not start. He now has new insurance. He tried to fill Jardiance this past month but it was 800 dollar co-pay Diabetes medications: metformin xr 500mg bid NovoLog 70/30 Before breakfast 48 units Before supper 48 units glucose readings in the am 120-140 later in the day 400 Eye exam: last exam no retinopathy reported ,EHR indicate h/o mild pr oliferative [id number] Nephropathy: EGFR>60 06/0607/28/23 microalbumin:58 HLD on statin LDL 84 06/06 Has neuropathy: Symptoms reported some numbness Hypoglycemia:no with exception of when he gave himself morning dose, didn't eat breakfast and had labs done readings running Physical activity: Walks about 3/4 - 1 mile most days Recent MALA shows possible moderate stenosis 2023. He was evaluated by Dr. Olsen, vascular surgeon. Stable claudication with duplex in 1 year. [facility] Medical History Peripheral arterial disease Personal history of nicotine dependence Chest discomfort Intermittent palpitations Hx of skin malignancy Essential (primary) hypertension Vitamin D deficiency, unspecified Dyslipidemia, goal LDL below 100 Proteinuria, unspecified Type 2 diabetes mellitus with other diabetic kidney complication (~2009) Type 2 diabetes mellitus with diabetic polyneuropathy (~2009) Surgical History History of colonoscopy History of esophagogastroduodenoscopy (EGD) History of left inguinal hernia repair History of appendectomy History of squamous cell carcinoma excision Family History Father No problems noted. Mother Diabetes Social History Household Members: Family Household Members Other:: Daughter Housing: House Patient Tobacco Use Status: Current someday Tobacco user Tobacco use type: Cigarette Years Smoked: (Onset 16yo, 1ppd x 55yrs, 50pyh, quit 2019) e-Cigarette/Vaping Use: Never Used Current occupational status: employed Cognitive needs: Yes Hearing needs: No Vision needs: No Physical Exam Vital Signs: Last Vital Signs Pulse 96 08/22/24 09:31 BP 130/80 08/22/24 09:31 Pulse Ox 98 08/22/24 09:31 Oxygen Delivery Method Room Air 08/22/24 09:31 BMI result Body Mass Index 31.4 Const Other: Absence of Cushingoid features. Absence of acromegalic features. Neck exam reveals nl size thyroid about 15 gms. No thyroid nodules palpable. No carotid bruits present. Lungs CTA. Heart S1 S2, Reg R/R. No M/R G. Skin exam reveals absence of vitiligo or acanthosis nigricans. No edema deferred Office Procedures Glucose Monitoring Details 19196 - Glucose Monitoring, continuous Procedure code (CPT) selection complete Results Reviewed Results Reviewed: Laboratory Last Values Glucose (Clinic) 201 mg/dL (60-115) H 08/22/24 09:39 Assessment & Plan Assessment & Plan (1) Type 2 diabetes mellitus with diabetic polyneuropathy: Onset Date: ~2009 Code(s): E11.42 - Type 2 diabetes mellitus with diabetic polyneuropathy Category: Medical Qualifiers: Diabetes mellitus penitentiary insulin use: with supervisor intermediates use Qualified Code(s): E11.42 - Type 2 diabetes mellitus with diabetic polyneuropathy; Z79.4 - supervisor intermediates (current) use of insulin Plan: 74-year-old with neuropathy, retinopathy, nephropathy and PVD with glucose numbers improving in the am, very high later in the day. He was unable to fill Jardiance 2nd to costt. He was advised to closely follow his diet. Increase 70/30 insulin to 56 units in the morning 48 in the p.m.. Increase metformin to 1000 daily as tolerated. Glucose sensor placed and he will return in 14 days to review results. Patient verbally agreed to insertion of sensor to wear it for 2 weeks. I will look into patient assistance program for SGL T-2 inhibitor. The patient had an opportunity to ask questions regarding treatment plan. The patient expressed understanding and agreement with the above treatment plan. The patient is aware they should contact our office by phone for worsening glucose readings or for any low blood sugars which may warrant a change in diabetes medication. Compliance is encouraged with medications and any followup testing/consults which may have been ordered. Orders: Orders B Type Natriuretic Peptide Today E11.42 - Type 2 diabetes mellitus with diabetic polyneuropathy, Z79.4 - nursing home (current) use of insulin AMB Glucose Monitoring Today E11.42 - Type 2 diabetes mellitus with diabetic polyneuropathy, Z79.4 - supervisor intermediates (current) use of insulin Medications: Changed From insulin asp prt-insulin aspart 100 unit/mL (70-30) (Novolog Mix 70- 30FlexPen U-100) 54 units before breakfast and 50 units before supper 90 days 93 mL 4RF E11.42 - Type 2 diabetes mellitus with diabetic polyneuropathy, Z79.4 - nursing home (current) use of insulin To insulin asp prt-insulin aspart 100 unit/mL (70-30) (Novolog Mix 70-30FlexPen U-100) 56 units before breakfast and 48 units before supper subcutaneously 2 times a day; 54 units before breakfast and 50 units before supper 90 days 93 mL 4RF E11.42 - Type 2 diabetes mellitus with diabetic polyneuropathy, Z79.4 - nursing home (current) use of insulin Discontinued empagliflozin (Jardiance) Discontinued Reason: Insurance Denied 10 mg PO DAILY 90 days 90 tabs 0RF Patient Instructions: The patient was counseled to achieve a target A1C of 7% (154 avg). Fasting blood sugars should be 90-130 in the morning and less than 180 two hours after meals. Reviewed the relationship between poor diabetic control and the development of complications. Check your feet daily looking for any signs of infection, drainage, redness, ulceration and seek medical attention if this occurs. Break in shoes gradually and do not wear open-toed shoes or walk stocking footed or barefooted. Take 15 carb carbohydrate grams to treat a low sugar (3-4 glucose tablets, half a glass of juice or 15 carbohydrate grams of soft candy such as gummie snacks). Recheck your sugar in 15 minutes and re-treat again with 15 carbohydrate grams if low or still with symptoms. Do not drive a car or operate machinery if you do not know what your blood sugar is, if it is low or in excess of 300. Coding Level of Care Code Est Pt Level 4 (64955) Complex EM visit Add On G2211 Diagnoses Type 2 diabetes mellitus with diabetic polyneuropathy, with long-term current use of insulin E11.42; Z79.4 Diabetes mellitus supervisor intermediates insulin use: with penitentiary use CPT Codes Details - CPT: 84877 - Glucose Monitoring, continuous ([id number]) Time Spent (min) 30 Comment Time spent reviewing labs/provider notes, face to face, chart doc
[2024-08-22 09:31] VITALS: BP 130/80; PULSE 96; O2SAT 98; BMI 31.4
[2024-08-22 09:42] LABS: Glucose, Whole Blood 201 mg/dL (60-115)
--- OUTSIDE RECORDS SUMMARY | 2024-08-22 10:33 | XMS_ITS | Data Portability ---
Author Organization RANDY Castellon s, [address] Address [address] [place] [address] Care Team Providers Care Paper Guillotine Operator Name Role Phone [facility] Primary Care Provider SIMON WALKER Foundry Process Engineer [phone] Assessment No assessment recorded. Plan of Treatment Reminders Order Date Submit Date Provider Last Modified By Organization Details Last Modified Time Details Appointments None recorded. Lab None recorded. Referral physical therapist referral 2021 [email or web address] Not available 10:52:10 Procedures None recorded. Surgeries None recorded. Imaging XR, knee, 3 view 2021 acardinal 3 [facility], [address] [place] [address], [address], 09:06:55 Medication Orders naproxen 500 mg tablet 2021 [facility], [address] [facility], [place], [address], 17:45:25 Patient TargetsNo targets recorded. Patient Instructions Encounter Date Encounter Id Patient Instructions Last Modified By Organization Details Last Modified Time 05/25/2022 [id number] You should follow-up with your PCP in days, or at any time if your condition does not improve or worsens. Any acute change should prompt a visit to the nearest Emergency Department. Rest . Ice . Elevation . Limited activity . Advil or Tylenol for pain if tolerated. [email or web address] Not available 05/30/2022 08:14:23 06/03/2022 [id number] knee: exercises [email or web address] Not availab le 06/03/2022 17:45:23 Go to the [facility] emergency department if you develop [...] Advil or Tylenol for pain if tolerated. [email or web address] Not available 06/03/2022 18:03:01 06/14/2022 [id number] learning about rice (rest, ice, compression, and elevation) [email or web address] Not available 06/14/2022 16:01:18 physical therapy * - Need PT 3x/week x 4 week. right knee injured at work. worker comp. evaluation and treat. Not available 06/21/2022 08:23:24 MUSCULOSKELETAL- K NEE: [...] 3 view No observ ation record ed. [email or web address] [facility] [address] [facility] [place], [address], 05/25/2022 20:32:33 05/26/20 22 XR, knee, 3 view No observ ation record ed. [email or web address] [facility] [address] [facility] [place], [address], 05/26/2022 11:30:24 Result Notes None recorded. Problems Name Problem SNOMED Code Status Onset Date Resolution Date Notes Provider Name and Address Organization Details Recorded Time Hypertensive disorder 76679401 Active 2021 Angie rice, PA - [facility] 19:31:49 Hyperlipidemia 95498606 Active 2021 Angie rice, PA - [facility] 19:31:59 Type 2 diabetes mellitus 47670556 Active 2021 Angie rice, PA - [facility] 19:32:14 Problem Notes None recorded. Procedures Surgical History Date Name Laterality Status Provider Name and Address Organization Details Recorded Time 05/25/20 22 Jonathan Bandage completed Yareli Dixon MD [address] [place], [address], PA - [facility] 05/30/2022 08:16:06 05/25/20 22 KNEE IMMOBILIZER - 14 inches completed Yareli Dixon MD [address] [place], [address], PA - [facility] 05/30/2022 08:15:29 05/25/20 [...] Time 05/25/2022 XR, knee, 3 view completed [email or web address] [facility] [address] [place], [address], 05/25/2022 20:32:33 05/26/2022 XR, knee, 3 view completed [email or web address] [facility] [address] [place], [address], 05/26/2022 11:30:24 Procedure Notes None recorded. Medical [...] Not Available Vitals Date Recorded Body height Body mass index (BMI) Body weight Pain severity - 0-10 verbal numeric rating [Score] - Reported Provider Name and Address Organization Details Last Updated DateTime 05/25/2022 182.88 cm 27.8 kg/m2 03223.44 g 8 Angie Kaye PA - [facility] 05/25/2022 19:28:31 Date Recorded Oxygen saturation Oxygen saturation in Arterial blood by Pulse oximetry Heart rate Respiratory rate Body temperature Systolic blood pressure Diastolic blood pressure Provider Name and Address Organization Details Last Updated DateTime 2 99 % 99 % 89 /min 20 /min 98.2 [degF] 143 mm[Hg] 72 mm[Hg] GUANACO TONY PA - [facility] 2 19:31:08 Date Recorded Body height Body mass index (BMI) Body weight Pain severity - 0-10 verbal numeric rating [Score] - Reported Oxygen saturation Oxygen saturation in Arterial blood by Pulse oximetry Heart rate Respiratory rate Body temperature Systolic blood pressure Diastolic blood pressure Provider Name and Address Organization Details Last Updated DateTime 2 182.88 cm 28.9 kg/m2 80715.1 7 g 8 97 % 97 % 95 /min 20 /min 97.1 [degF] 148 mm[Hg] 75 mm[Hg] GUANACO TONY PA - [facility] 2 17:32:37 Date Recorded Body height Pain severity - 0-10 verbal numeric rating [Score] - Reported Respiratory rate Body mass index (BMI) Body weight Oxygen saturation Oxygen saturation in Arterial blood by Pulse oximetry Heart rate Body temperature Systolic blood pressure Diastolic blood pressure Provider Name and Address Organization Details Last Updated DateTime 3 182.88 cm 0 18 /min 28.9 kg/m2 26784.1 7 g 98 % 98 % 86 /min 97.1 [degF] 145 mm[Hg] 73 mm[Hg] LINWOOD TAVAREZ RA PA - [facility] 3 15:37:53 Social History Question Answer Notes LastModified by Majitekat ion Details LastModified Time Tobacco Smoking Status Current Some Day Smoker Angie rice PA - [facility] 05/25/2022 19:32:47 What Is Your Level Of Alcohol Consumption? None [email or web address] Information not available 05/25/2022 Have You Had Direct Contact, Or Contact During Intimacy, With Monkeypox Rash, Scabs, Or Body Fluids From A Person With Monkeypox? No [email or web address] Information not available 05/25/2022 How Much Tobacco Do You Smoke? 1 PPW Information not available 05/25/2022 Do You Use Any Illicit Or Recreational Drugs? No [email or web address] Information not available 05/25/2022 Have You Recently Traveled Abroad? No [email or web address] Information not available 05/25/2022 Do You Or [...] 30 mcg/0.3 mL dose 1 completed GUANACO rice PA - [facility] 06/03/2022 17:32:40 COVID-19, [...] 06/03/2022 17:32:40 pneumococcal polysaccharide PPV23 9 completed GUANACO DESMITH null, PA - [...] SNOMED-CT Code Diagnosis ICD10 Code Diagnosis Note [id number] [address] [facility] [address] [place] [address] 04/27/2020 12:38:30 04/27/2020 14:28:08 [id number] Yareli bell MD [address] [facility] [address] [place] [address] 05/25/2022 18:31:14 05/25/2022 20:01:04 History and physical examination, pre-employment 670985614 Z02.1 [id number] Yareli bell MD [address] [place] [address] 05/25/2022 18:33:31 05/26/2022 09:06:55 Sprain of right knee 7973174643 0485832 S83.91XA Examinatio n for work accident 787050455 Z04.2 [id number] RANDY Wesley [address] [facility] [place] [address] 06/03/2022 17:18:17 06/03/2022 18:04:45 Sprain of right knee 3033494980 3240115 S83.91XD [id number] Ricardo Solo NP [address] [facility] [place] [address] 06/14/2022 15:07:33 06/14/2022 16:12:29 Pain of right knee joint 7576647528 55527 M25.561 Accident phoenix avila engaged in work-related activity 39180713 X58.XXXD Health Concerns Section Related Observation LastModified by Organization Detai ls LastModified Time None Recorded Concern Status LastModified by Organization Details LastModified Time None Recorded Advance Directives Directive None Recorded Payers Encounter Date Sequence Insurance Name Policy Number Policy Wolfe Covered Member ID Wolfe Member ID Guarantor Name 05/25/2022 GENERIC WORKER'S COMP (MOVED TO HOLD) PVTA Generic Employer Davin Grantzacelio 05/25/2022 BROADSPIRE Pvta Rohit august Anzalotti 06/03/2022 [employer]OADSP[employer] Pvta Rohit august Anzalotti 06/14/2022 BROADSP[employer] Pvta Rohit august Anzalotti Notes Date Note Type Note Provider [...] knee hyperextended and twisted Yareli Dixon MD [address] [place], [address], PA - [facility] 05/30/2022 08:16:27 06/03/2022 [...] able to do this. RANDY Wesley [address] [place], [address], PA - [facility] 06/03/2022 18:06:22 06/14/2022 text/html KneeReported bypatient.Notes:rig ht knee pain related to injury at work approximately 3 weeks ago. patient wants to go back to work full duty. did not follow up with physical therapy. Ricardo Solo NP [address] [facility] [place], [address], PA - [facility] 06/14/2022 16:49:44
--- OUTSIDE RECORDS SUMMARY | 2024-08-22 10:33 | XMS_ITS ---
Author Name CRISP Organization Unknown Encounters Encounter Type Encounter Reason Primary Diagnosis Location Date Ambulatory [facility]. ([facility] 05/25/2022
== END 2024-08-22 10:01 | disposition home or self-care (01) ==
LOC: HO.ENCR 09:25
PROVIDERS: PCP Internal Medicine; Visit Provider Nurse Practitioner Adult Health
DX: E11.42 Type 2 diabetes mellitus with diabetic polyneuropathy (principal); Z79.4 Long term (current) use of insulin
CPT/HCPCS: 99214; G2211

== ENCOUNTER → 2024-08-22 09:24 | Outpatient (BNVA) | payer MEDICARE, SELFPAY | PROVIDERS: PCP Internal Medicine; Visit Provider Nurse Practitioner Adult Health | DX: E11.42 Type 2 diabetes mellitus with diabetic polyneuropathy (principal); E11.29 Type 2 diabetes mellitus with other diabetic kidney complication; R80.9 Proteinuria, unspecified; E78.5 Hyperlipidemia, unspecified; Z79.4 Long term (current) use of insulin | CPT/HCPCS: 82947; 95250; 99212 ==

== ENCOUNTER 2024-08-31 13:26 | Outpatient (REF) | payer MEDICARE, SELFPAY ==
--- OUTSIDE RECORDS SUMMARY | 2024-08-31 15:58 | XMS_ITS | Data Portability ---
Author Organization RANDY Castellon s, [address] Address [address] [place] [address] Care Team Providers Care Data Modeler Name Role Phone [facility] Primary Care Provider SIMON WALKER Handtools Repairer Assessment No assessment recorded. Plan of Treatment Reminders Order Date Submit Date Provider Last Modified By Organization Details Last Modified Time Details Appointments None recorded. Lab None recorded. Referral physical therapist referral 2021 [email or web address] Not available 10:52:10 Procedures None recorded. Surgeries None recorded. Imaging XR, knee, 3 view 2021 acardinal 3 [facility], [address] [place] [address], [address], 09:06:55 Medication Orders naproxen 500 mg tablet 2021 [facility], [address] [facility], [place], [address], 17:45:25 Patient TargetsNo targets recorded. Patient Instructions Encounter Date Encounter Id Patient Instructions Last Modified By Organization Details Last Modified Time 05/25/2022 [id number] You should follow-up with your PCP in days, or at any time if your condition does not improve or worsens. Any acute change should prompt a visit to the nearest Emergency Department. Rest . Ice . Elevation . Limited activity . Advil or Tylenol for pain if tolerated. [email or web address] Not available 05/30/2022 08:14:23 06/03/2022 [id number] knee: exercises [email or web address] Not availab le 06/03/2022 17:45:23 Go to the [facility] emergency department if you develop [...] Advil or Tylenol for pain if tolerated. [email or web address] Not available 06/03/2022 18:03:01 06/14/2022 [id number] learning about rice (rest, ice, compression, and elevation) [email or web address] Not available 06/14/2022 16:01:18 physical therapy * - Need PT 3x/week x 4 week. right knee injured at work. worker comp. evaluation and treat. [email or web address] Not available 06/21/2022 08:23:24 MUSCULOSKELETAL- K NEE: [...] 3 view No observ ation record ed. [email or web address] [facility] [address] [place] [place], [address], 05/25/2022 20:32:33 05/26/20 22 XR, knee, 3 view No observ ation record ed. [email or web address] [facility] [address] [facility] [place], [address], 05/26/2022 11:30:24 Result Notes None recorded. Problems Name Problem SNOMED Code Status Onset Date Resolution Date Notes Provider Name and Address Organization Details Recorded Time Hypertensive disorder 37196404 Active 2021 Angie rice, PA - [facility] 19:31:49 Hyperlipidemia 19714634 Active 2021 Angie rice, PA - [facility] 19:31:59 Type 2 diabetes mellitus 35576293 Active 2021 Angie rice, PA - [facility] 19:32:14 Problem Notes None recorded. Procedures Surgical History Date Name Laterality Status Provider Name and Address Organization Details Recorded Time 05/25/20 22 Jonathan Bandage completed Yareli Dixon MD [address] [place], [address], PA - [facility] 05/30/2022 08:16:06 05/25/20 22 KNEE IMMOBILIZER - 14 inches completed Yareli Dixon MD [address] [place], [address], PA - [facility] 05/30/2022 08:15:29 05/25/20 [...] Time 05/25/2022 XR, knee, 3 view completed [email or web address] [facility] [address] [place], [address], 05/25/2022 20:32:33 05/26/2022 XR, knee, 3 view completed [email or web address] [facility] [address] [place], [address], 05/26/2022 11:30:24 Procedure Notes None recorded. Medical [...] Updated DateTime 05/25/2022 182.88 cm 27.8 kg/m2 50340.44 g 8 Angie Kaye [facility] - [facility] [...] Updated DateTime 2 182.88 cm 28.9 kg/m2 51447.1 7 g 8 97 % 97 % [...] 182.88 cm 0 18 /min 28.9 kg/m2 17445.1 7 g 98 % 98 % 86 /min 97.1 [degF] 145 mm[Hg] 73 mm[Hg] LINWOOD TAVAREZ RA PA - [facility] 3 15:37:53 Social History Question Answer Notes LastModified by PrizeBox™at ion Details LastModified Time Tobacco Smoking Status Current Some Day Smoker Angie rice PA - [facility] 05/25/2022 19:32:47 What Is Your Level Of Alcohol Consumption? None [email or web address] Information not available 05/25/2022 Have You Had Direct Contact, Or Contact During Intimacy, With Monkeypox Rash, Scabs, Or Body Fluids From A Person With Monkeypox? No [email or web address] Information not available 05/25/2022 How Much Tobacco Do You Smoke? 1 PPW [email or web address] Information not available 05/25/2022 Do You Use Any Illicit Or Recreational Drugs? No [email or web address] Information not available 05/25/2022 Have You Recently Traveled Abroad? No [email or web address] Information not available 05/25/2022 Do You Or [...] SNOMED-CT Code Diagnosis ICD10 Code Diagnosis Note [id number] [address] [facility] [address] [facility] [place] [address] 04/27/2020 12:38:30 04/27/2020 14:28:08 [id number] Yareli bell MD [address] [facility] [address] [facility] [place] [address] 05/25/2022 18:31:14 05/25/2022 20:01:04 History and physical examination, pre-employment 822018201 Z02.1 [id number] Yareli bell MD [address] [facility] [place] [address] 05/25/2022 18:33:31 05/26/2022 09:06:55 Sprain of right knee 1685850613 4529472 S83.91XA Examinatio n for work accident 536332715 Z04.2 [id number] RANDY Wesley [address] [place] [facility] [place] [address] 06/03/2022 17:18:17 06/03/2022 18:04:45 Sprain of right knee 1207271407 3451540 S83.91XD [id number] Ricardo Solo NP [address] [place] [facility] [place] [address] 06/14/2022 15:07:33 06/14/2022 16:12:29 Pain of right knee joint 6637010129 04586 M25.561 Accident phoenix avila engaged in work-related activity 19328081 X58.XXXD Health Concerns Section Related Observation LastModified [...] Dixon MD [address] [place], [address], PA - [facility] 05/30/2022 08:16:27 06/03/2022 [...] RANDY Wesley [address] [place], [address], PA - [facility] 06/03/2022 18:06:22 06/14/2022 text/html KneeReported bypatient.Notes:rig ht knee pain related to injury at work approximately 3 weeks ago. patient wants to go back to work full duty. did not follow up with physical therapy. Ricardo Solo NP [address] [facility] [place], [address], PA - [facility] 06/14/2022 16:49:44
[2024-08-31 17:10] LABS: Prostate Specific Antigen 0.68 ng/mL (<0.05-4.0)
== END 2024-08-31 13:27 | disposition home or self-care (01) ==
LOC: HO.HMGCLDS 13:26
PROVIDERS: PCP Internal Medicine; Visit Provider Urology
DX: Z12.5 Encounter for screening for malignant neoplasm of prostate (principal); E11.69 Type 2 diabetes mellitus with other specified complication; N52.1 Erectile dysfunction due to diseases classified elsewhere
CPT/HCPCS: 36415; 84153; 84403

== ENCOUNTER 2024-09-05 10:20 | Outpatient (AMB) | payer MEDICARE, SELFPAY ==
--- NOTE | 2024-09-05 09:03 | A.OFFVIS_ITS ---
Vital Signs 09/05/24 10:24 Height 6 ft Weight 231 lb 7.766 oz BMI 31.4 BP 128/78 Blood Pressure Location Rt brachial Position Sitting Pulse 96 Pulse Source Pulse Oximeter Pulse Oximetry (%) 97 Oxygen Delivery Method Room Air Intake Visit Reasons: Type II diabetes Intake Note: Patient presents today for a follow-up for Type 2 Diabetes Mellitus: Last Diabetic eye exam was on: 06/2023 Last Podiatry exam was on: Does not see a Tablet Coater Most recent HbA1c: >14.0%, 06/21/2024 Random Glucose- 209 mg/dL, Today Sr. Logistics Analyst Required: No Accompanied by: Self / Same As Patient Allergies lisinopril Allergy (Unknown, Verified 09/05/24 10:22) lip swelling and cough, dizzy Medication List - Last Reconciled 09/05/24 by Deena Mane NP amlodipine 5 mg PO QPM aspirin (Adult Low Dose Aspirin) 81 mg PO DAILY blood sugar diagnostic (Ohm [employer] Verio test strips) As directed 4 times a day blood-glucose meter ([employer] Verio Flex Start kit) As directed to test blood glucose two times a day dicyclomine 20 mg PO QID insulin asp prt-insulin aspart 100 unit/mL (70-30) (Novolog Mix 70-30FlexPen U- 100) 56 units before breakfast and 48 units before supper subcutaneously 2 times a day; 54 units before breakfast and 50 units before supper 90 days lancets ([employer] Delica Lancets) As directed twice a day losartan 100 mg PO DAILY metformin ER 500 mg PO BID 30 days omega-3 fatty acids (Fish Oil Concentrate) 1,000 mg PO DAILY pen needle, diabetic (BD Delmy 2nd Gen Pen Needle) twice daily simvastatin 20 mg PO BEDTIME tadalafil 5 mg PO DAILY 90 days HPI Comments Details: Patient is a 74 yo male with DM type 2 diagnosed around 2009 who presents for management of diabetes. He was last seen 2 weeks ago at which time a glucose sensor was placed. He has been changed to 75/25 insulin 04/2024 secondary to high co-pay on his other insulin. Hgb A1C: 06/21/24:14 % 03/22/24 10.2%. During the last 7 days of the sensing. He used Lantus as he did not go to the pharmacy to nut picker his mixed insulin. PMH: HLD, DM2, PVD Micro and macrovascular complications: + mild proliferative retinopathy, + nephropathy, +neuropathy, He was unable to tolerate metformin 1 g due to GI side effects, but has been able to tolerate 500 mg XR twice daily until last few weeks when he needed to decrease to once daily. He had been prescribed Trulicity in the past but could not afford co-pay, prescribed Farxiga in the past but did not start. He now has new insurance. He tried to fill Jardiance this past month but it was 800 dollar co-pay Diabetes medications: metformin xr 500mg bid NovoLog 70/30 Before breakfast 48 units Before supper 48 units Dexcom average glucose: 286 14 day continuous glucose monitor report reviewed Glucose Managment indicator 10.2 % Days with CGM data 100 % TIme in ranges: Sixty-four % very high (above 250) 17 % high ?(181-250) 18 % in range ?(70-180] 1 % low (69-55) 0 % ?very low (below 54) 36.2 glucose variability desired less than 236 Interpretation [glucose readings a proximally 100 points above target, in target range 18% desired is close to 80% he starts off at midnight in excess of 350 and drops down to an average of 180 lowest being 70 throughout the day he had steadily rises ] Eye exam: last exam has retinopathy h/o mild proliferative retinopathy he sees Dr. Ann and was asked to have his fancy packer send report. Nephropathy: EGFR>60 06/0607/28/23 microalbumin:58 HLD on statin LDL 84 06/06 Has neuropathy: Symptoms reported some numbness Hypoglycemia:very mild in am occasionally feels sweaty. Physical activity: Walks about 3/4 - 1 mile most days Recent MALA shows possible moderate stenosis 2023. He was evaluated by Dr. Olsen, vascular surgeon. Stable claudication with duplex in 1 year. [facility] Medical History Peripheral arterial disease Personal history of nicotine dependence Chest discomfort Intermittent palpitations Hx of skin malignancy Essential (primary) hypertension Vitamin D deficiency, unspecified Dyslipidemia, goal LDL below 100 Proteinuria, unspecified Type 2 diabetes mellitus with other diabetic kidney complication (~2009) Type 2 diabetes mellitus with diabetic polyneuropathy (~2009) Surgical History History of colonoscopy History of esophagogastroduodenoscopy (EGD) History of left inguinal hernia repair History of appendectomy History of squamous cell carcinoma excision Family History Father No problems noted. Mother Diabetes Social History Household Members: Family Household Members Other:: Daughter Housing: House Patient Tobacco Use Status: Current someday Tobacco user Tobacco use type: Cigarette Years Smoked: (Onset 16yo, 1ppd x 55yrs, 50pyh, quit 2018) e-Cigarette/Vaping Use: Never Used Current occupational status: employed Cognitive needs: Yes Hearing needs: No Vision needs: No Review of Systems Const Details: Absence of Cushingoid features. Absence of acromegalic features. Heart S1 S2, Reg R/R. No M/R G. Skin exam reveals absence of vitiligo or acanthosis nigricans. Physical Exam Vital Signs: Last Vital Signs Pulse 96 09/05/24 10:24 BP 128/78 09/05/24 10:24 Pulse Ox 97 09/05/24 10:24 Oxygen Delivery Method Room Air 09/05/24 10:24 BMI result Body Mass Index 31.4 Const Other: Absence of Cushingoid features. Absence of acromegalic features. Neck exam reveals nl size thyroid about 15 gms. No thyroid nodules palpable. Heart S1 S2, Reg R/R. No M/R G. Skin exam reveals absence of vitiligo or acanthosis nigricans. Visual exam of foot performed. No ulcerations or open lesions. No inter digit maceration or fissuring. No onychomycosis, no callouses. Sensation intact to monofilament exam. Vibratory sensation is normal with 128 Hz tuning fork. Office Procedures Glucose Monitoring Details Details: see hpi 69120 - Glucose monitoring, continuous-physician I&R Procedure code (CPT) selection complete Results Reviewed Results Reviewed: Laboratory Last Values Glucose (Clinic) 209 mg/dL (60-115) H 09/05/24 10:29 Assessment & Plan Assessment & Plan (1) Type 2 diabetes mellitus with other diabetic kidney complication: Onset Date: ~2009 Code(s): E11.29 - Type 2 diabetes mellitus with other diabetic kidney complication Category: Medical Plan: 74-year-old type 2 diabetic with neuropathy, retinopathy and nephropathy with poor glycemic control secondary to difficulties affording co-pay is on medications. Fourteen day glucose sensor shows he is in target range only 18% of the time with an average of 286 We will keep the p.m. dose the same as he has occasional mild low in a.m. New dosin/30 64 units am 70/30 46 units pm Metformin XR 500 mg twice daily He was encouraged to access [employer] patient assistance program. He can also try [phone] for co-pay assistance card which may or may not work with Medicare. The patient had an opportunity to ask questions regarding treatment plan. The patient expressed understanding and agreement with the above treatment plan. The patient is aware they should contact our office by phone for worsening glucose readings or for any low blood sugars which may warrant a change in diabetes medication. Compliance is encouraged with medications and any followup testing/consults which may have been ordered. Orders: Orders AMB Glucose Monitoring Today E11.29 - Type 2 diabetes mellitus with other diabetic kidney complication Medications: Changed From insulin asp prt-insulin aspart 100 unit/mL (70-30) (Novolog Mix 70- 30FlexPen U-100) 56 units before breakfast and 48 units before supper subcutaneously 2 times a day; 54 units before breakfast and 50 units before supper 90 days 93 mL 4RF E11.42 - Type 2 diabetes mellitus with diabetic polyneuropathy, Z79.4 - terminal worker (current) use of insulin To insulin asp prt-insulin aspart 100 unit/mL (70-30) (Novolog Mix 70-30FlexPen U-100) 64 units before breakfast and 48 units before supper 90 days 103 mL 4RF E11.42 - Type 2 diabetes mellitus with diabetic polyneuropathy, Z79.4 - [facility] (current) use of insulin Patient Instructions: The patient was counseled to achieve a target A1C of 7% (154 avg). Fasting blood sugars should be 90-130 in the morning and less than 180 two hours after meals. Reviewed the relationship between poor diabetic control and the development of complications. Take 15 carb carbohydrate grams to treat a low sugar (3-4 glucose tablets, half a glass of juice or 15 carbohydrate grams of soft candy such as gummie snacks). Recheck your sugar in 15 minutes and re-treat again with 15 carbohydrate grams if low or still with symptoms. Do not drive a car or operate machinery if you do not know what your blood sugar is, if it is low or in excess of 300. Coding Level of Care Code Est Pt Level 4 (45955) Complex EM visit Add On G2211 Diagnoses Type 2 diabetes mellitus with other diabetic kidney complication E11.29 CPT Codes Details - CPT: 39920 - Glucose monitoring, continuous-physician I&R ([id number]) Time Spent (min) 35 Comment Time spent reviewing labs/provider notes, glucose,sensor reports, face to face, chart doc
[2024-09-05 10:24] VITALS: BP 128/78; PULSE 96; O2SAT 97; BMI 31.4
[2024-09-05 10:35] LABS: Glucose, Whole Blood 209 mg/dL (60-115)
--- OUTSIDE RECORDS SUMMARY | 2024-09-05 12:26 | XMS_ITS | Data Portability ---
Author Organization RANDY Castellon s, [address] Address [address] [place] [address] Care Team Providers Care Radiographer Technologist Name Role Phone [facility] Primary Care Provider SIMON WALKER Sack Maker Assessment No assessment recorded. Plan of Treatment Reminders Order Date Submit Date Provider Last Modified By Organization Details Last Modified Time Details Appointments None recorded. Lab None recorded. Referral physical therapist referral 2021 [email or web address] Not available 10:52:10 Procedures None recorded. Surgeries None recorded. Imaging XR, knee, 3 view 2021 acardinal 3 [facility], [address] [place] [address], [address], 09:06:55 Medication Orders naproxen 500 mg tablet 2021 [facility], [address] [facility], [place], [address], 17:45:25 Patient TargetsNo targets recorded. Patient Instructions Encounter Date Encounter Id Patient Instructions Last Modified By Organization Details Last Modified Time 05/25/2022 [id number] You should follow-up with your PCP in days, or at any time if your condition does not improve or worsens. Any acute change should prompt a visit to the nearest Emergency Department. Rest . Ice . Elevation . Limited activity . Advil or Tylenol for pain if tolerated. [email or web address] Not available 05/30/2022 08:14:23 06/03/2022 [id number] knee: exercises Not availab le 06/03/2022 17:45:23 Go to the [facility] emergency department if you develop ANY new [...] Advil or Tylenol for pain if tolerated. [email or web address] Not available 06/03/2022 18:03:01 06/14/2022 [id number] learning about rice (rest, ice, compression, and elevation) [email or web address] Not available 06/14/2022 16:01:18 physical therapy * - Need PT 3x/week x 4 week. right knee injured at work. worker comp. evaluation and treat. [email or web address] Not available 06/21/2022 08:23:24 MUSCULOSKELETAL- K NEE: [...] 3 view No observ ation record ed. [email or web address] [facility] [address] [facility] [place], [address], 05/25/2022 20:32:33 05/26/20 22 XR, knee, 3 view No observ ation record ed. [facility] [address] [facility] [place], [address], 05/26/2022 11:30:24 Result Notes None recorded. Problems Name Problem SNOMED Code Status Onset Date Resolution Date Notes Provider Name and Address Organization Details Recorded Time Hypertensive disorder 89748865 Active 2021 Angie rice, PA - [facility] 19:31:49 Hyperlipidemia 80288346 Active 2021 Angie rice, PA - [facility] 19:31:59 Type 2 diabetes mellitus 24398068 Active 2021 Angie rice, PA - [facility] 19:32:14 Problem Notes None recorded. Procedures Surgical History Date Name Laterality Status Provider Name and Address Organization Details Recorded Time 05/25/20 22 Jonathan Bandage completed Yareli Dixon MD [address] [place], [address], PA - [facility] 05/30/2022 08:16:06 05/25/20 22 KNEE IMMOBILIZER - 14 inches completed Yareli Dixon MD [address] [place], [address], PA - [facility] 05/30/2022 08:15:29 05/25/20 [...] Time 05/25/2022 XR, knee, 3 view completed [email or web address] [facility] [address] [place], [address], 05/25/2022 20:32:33 05/26/2022 XR, knee, 3 view completed [email or web address] [facility] [address] [place], [address], 05/26/2022 11:30:24 Procedure Notes None recorded. Medical [...] Updated DateTime 05/25/2022 182.88 cm 27.8 kg/m2 49011.44 g 8 Angie Kaye [facility] - [facility] [...] Updated DateTime 2 182.88 cm 28.9 kg/m2 24558.1 7 g 8 97 % 97 % [...] 182.88 cm 0 18 /min 28.9 kg/m2 37435.1 7 g 98 % 98 % 86 /min 97.1 [degF] 145 mm[Hg] 73 mm[Hg] LINWOOD TAVAREZ RA PA - [facility] 3 15:37:53 Social History Question Answer Notes LastModified by [employer] ion Details LastModified Time Tobacco Smoking Status Current Some Day Smoker Angie rice PA - [facility] 05/25/2022 19:32:47 What Is Your Level Of Alcohol Consumption? None [email or web address] Information not available 05/25/2022 Have You Had Direct Contact, Or Contact During Intimacy, With Monkeypox Rash, Scabs, Or Body Fluids From A Person With Monkeypox? No [email or web address] Information not available 05/25/2022 How Much Tobacco Do You Smoke? 1 PPW [email or web address] Information not available 05/25/2022 Do You Use Any Illicit Or Recreational Drugs? No [email or web address] Information not available 05/25/2022 Have You Recently Traveled Abroad? No [email or web address] Information not available 05/25/2022 Do You Or [...] SNOMED-CT Code Diagnosis ICD10 Code Diagnosis Note [id number] [address] [facility] [address] [place] [address] 04/27/2020 12:38:30 04/27/2020 14:28:08 [id number] Yareli bell MD [address] [facility] [address] [place] [address] 05/25/2022 18:31:14 05/25/2022 20:01:04 History and physical examination, pre-employment 901282385 Z02.1 [id number] Yareli bell MD [address] [place] [address] 05/25/2022 18:33:31 05/26/2022 09:06:55 Sprain of right knee 1425146438 1974045 S83.91XA Examinatio n for work accident 957717396 Z04.2 [id number] RANDY Wesley [address] [place] [address] 06/03/2022 17:18:17 06/03/2022 18:04:45 Sprain of right knee 7975111764 [id number] S83.91XD [id number] Ricardo Solo NP [address] [place] [address] 06/14/2022 15:07:33 06/14/2022 16:12:29 Pain of right knee joint 5533528502 15407 M25.561 Accident [place] avila engaged in work-related activity [id number] X58.XXXD Health Concerns Section Related Observation LastModified [...] Dixon MD [address] [place], [address], PA - [facility] 05/30/2022 08:16:27 06/03/2022 [...] RANDY Wesley [address] [place], [address], PA - [facility] 06/03/2022 18:06:22 06/14/2022 text/html KneeReported bypatient.Notes:rig ht knee pain related to injury at work approximately 3 weeks ago. patient wants to go back to work full duty. did not follow up with physical therapy. Ricardo Solo NP [address] [facility] [place], [address], PA - [facility] 06/14/2022 16:49:44
== END 2024-09-05 10:55 | disposition home or self-care (01) ==
LOC: HO.ENCR 10:21
PROVIDERS: PCP Internal Medicine; Visit Provider Nurse Practitioner Adult Health
DX: E11.29 Type 2 diabetes mellitus with other diabetic kidney complication (principal)
CPT/HCPCS: 95251; 99214; G2211

== ENCOUNTER → 2024-09-05 10:20 | Outpatient (BNVA) | payer MEDICARE, SELFPAY | PROVIDERS: PCP Internal Medicine; Visit Provider Nurse Practitioner Adult Health | DX: E11.3599 Type 2 diabetes mellitus with proliferative diabetic retinopathy without macular edema, unspecified eye (principal); E11.21 Type 2 diabetes mellitus with diabetic nephropathy; E11.29 Type 2 diabetes mellitus with other diabetic kidney complication; E11.42 Type 2 diabetes mellitus with diabetic polyneuropathy; Z79.4 Long term (current) use of insulin | CPT/HCPCS: 82947; 99212 ==

== ENCOUNTER 2024-10-06 14:41 | Outpatient (AMB) | payer MEDICARE, SELFPAY ==
--- NOTE | 2024-10-06 14:56 | MHC.OFFVIS ---
Intake Visit Reasons: 6m/PSA/Testo Intake Note: Patient is present for 6M/PSA/TESTO Urology Medication:TADALAFIL Antibiotic Allergy:NONE Blood Thinner:ASPIRIN Copy Cutter Required: No Allergies lisinopril Allergy (Unknown, Verified 10/06/24 14:57) lip swelling and cough, dizzy HPI Comments Details: Davin is a pleasant male.? He is a patient of Dr. Gibbons. He is seen for the following urologic conditions - testicular swelling - lower urinary tract symptoms Six-month follow-up Follow-up for daily tadalafil PVR 0 cc Glucose 3+ on metformin, Humalog, Trulicity Testosterone borderline Testosterone - 08/02 400, 09/05 357 Lower urinary tract symptoms Current medications tadalafil 5 mg daily Prior medications alfuzosin Comorbidities include diabetes Bladder ultrasound 09/02 50 cc residual, 350cc PSA 09/01 0.8, 11/03 0.7 Testicular/Scotal orchalgia-swelling:? Prior testicular pain left side is ? Can continue using meloxicam on Celebrex as needed for his pain. ? Primary complaint of swelling, left, testicle(s). ? The symptoms started or were observed: Ongoing. ? Imaging includes testicular ultrasound - left mild hydrocele with epididymitis. ? Character of the pain is chronic. ? Based on imaging and exam diagnosis is most consistent with epididymitis. ? Prior therapy(ies) include use of anti-inflammatories PFSH Medical History Peripheral arterial disease Personal history of nicotine dependence Chest discomfort Intermittent palpitations Hx of skin malignancy Essential (primary) hypertension Vitamin D deficiency, unspecified Dyslipidemia, goal LDL below 100 Proteinuria, unspecified Type 2 diabetes mellitus with other diabetic kidney complication (~2009) Type 2 diabetes mellitus with diabetic polyneuropathy (~2009) Surgical History History of colonoscopy History of esophagogastroduodenoscopy (EGD) History of left inguinal hernia repair History of appendectomy History of squamous cell carcinoma excision Family History Father No problems noted. Mother Diabetes Social History Household Members: Family Household Members Other:: Daughter Housing: House Patient Tobacco Use Status: Current someday Tobacco user Tobacco use type: Cigarette Years Smoked: (Onset 16yo, 1ppd x 55yrs, 50pyh, quit 2019) e-Cigarette/Vaping Use: Never Used Current occupational status: employed Cognitive needs: Yes Hearing needs: No Vision needs: No Results AMB Urinalysis, Automated UA Leukoctes 0 Teresita/uL Last Edit by CELINE Milner on 10/06/24 15:15 UA Nitrite Negative Last Edit by [facility] on 10/06/24 15:15 UA Urobilinogen 0.2 mg/dL Last Edit by Chantel Momin [facility] on 10/06/24 15:15 UA Protein 15 mg/dL Last Edit by Chantel Momin [facility] on 10/06/24 15:15 UA pH 5.5 Last Edit by Chantel Momin [facility] on 10/06/24 15:15 UA Blood 0 Papi/uL Last Edit by Chantel Momin [facility] on 10/06/24 15:15 UA Specific [place] 1.025 Last Edit by [facility]el [facility] on 10/06/24 15:15 UA Ketone Negative Last Edit by Chantel Momin [facility] on 10/06/24 15:15 UA Bilirubin 0 mg/dL Last Edit by Chantel Momin [facility] on 10/06/24 15:15 UA Glucose 1000 mg/dL Last Edit by Chantel Momin [facility] on 10/06/24 15:15 Assessment & Plan Assessment & Plan Orders: Orders AMB Urinalysis Automated Today Z13.9 - Encounter for screening, unspecified Coding
--- OUTSIDE RECORDS SUMMARY | 2024-10-06 15:22 | XMS_ITS | Data Portability ---
Author Organization RANDY Castellon s, [address] Address [address] [place] [address] Care Team Providers Care Ux Consultant Name Role Phone [facility] Primary Care Provider [phone] SIMON WALKER Pattern Checker Assessment No assessment recorded. Plan of Treatment Reminders Order Date Submit Date Provider Last Modified By Organization Details Last Modified Time Details Appointments None recorded. Lab None recorded. Referral physical therapist referral 2021 [email or web address] Not available 10:52:10 Procedures None recorded. Surgeries None recorded. Imaging XR, knee, 3 view 2021 acardinal 3 [facility], [address] [place] [address], [address], 09:06:55 Medication Orders naproxen 500 mg tablet 2021 [facility], [address] [facility], [place], [address], 17:45:25 Patient TargetsNo targets recorded. Patient Instructions Encounter Date Encounter Id Patient Instructions Last Modified By Organization Details Last Modified Time 05/25/2022 [id number] You should follow-up with your PCP in days, or at any time if your condition does not improve or worsens. Any acute change should prompt a visit to the nearest Emergency Department. Rest . Ice . Elevation . Limited activity . Advil or Tylenol for pain if tolerated. [email or web address] Not available 05/30/2022 08:14:23 06/03/2022 [id number] knee: exercises [email or web address] Not availab le 06/03/2022 17:45:23 Go to the [facility] emergency department if you develop ANY [...] Advil or Tylenol for pain if tolerated. [email or web address] Not available 06/03/2022 18:03:01 06/14/2022 [id number] learning about rice (rest, ice, compression, and [...] Drawer maneuvers: Normal gerber: Negative Caitie's Negative [email or web address] Not available 06/14/2022 15:55:58 Reason for Referral Physical Therapist Referral for Sprain of right knee Referring Physician: Daniel Morales, Urgent Care, Encounter Date: 06/03/2022 Results Created Date Observation Date Name Description Value Unit Range Abnormal Flag Note LastModifiedBy Organization Detail LastModifiedTime 05/25/20 22 05/25/2022 XR, knee, 3 view No observ ation record ed. [email or web address] [facility] [address] [place], [address], 05/25/2022 20:32:33 05/26/20 22 XR, knee, 3 view No observ ation record ed. [email or web address] [facility] [address] [facility] [place], [address], 05/26/2022 11:30:24 Result Notes None recorded. Problems Name Problem SNOMED Code Status Onset Date Resolution Date Notes Provider Name and Address Organization Details Recorded Time Hypertensive disorder 61153544 Active 2021 Angie rice, PA - [facility] 19:31:49 Hyperlipidemia 85929307 Active 2021 Angie rice, PA - [facility] 19:31:59 Type 2 diabetes mellitus 94578388 Active 2021 Angie rice, PA - [facility] 19:32:14 Problem Notes None recorded. Procedures Surgical History Date Name Laterality Status Provider Name and Address Organization Details Recorded Time 05/25/20 22 Jonathan Bandage completed Yareli Dixon MD [address] [place], [address], PA - [facility] 05/30/2022 08:16:06 05/25/20 22 KNEE IMMOBILIZER - 14 inches completed Yareli Dixon MD [address] [place], [address], PA - [facility] 05/30/2022 08:15:29 05/25/20 [...] Time 05/25/2022 XR, knee, 3 view completed [email or web address] [facility] [address] [place], [address], 05/25/2022 20:32:33 05/26/2022 XR, knee, 3 view completed [email or web address] [facility] [address] [place], [address], 05/26/2022 11:30:24 Procedure Notes None recorded. Medical [...] Updated DateTime 05/25/2022 182.88 cm 27.8 kg/m2 45427.44 g 8 Angie Kaye [facility] - [facility] [...] Updated DateTime 2 182.88 cm 28.9 kg/m2 50495.1 7 g 8 97 % 97 % [...] 182.88 cm 0 18 /min 28.9 kg/m2 90606.1 7 g 98 % 98 % 86 /min 97.1 [degF] 145 mm[Hg] 73 mm[Hg] LINWOOD TAVAREZ RA PA - [facility] 3 15:37:53 Social History Question Answer Notes LastModified by Lucernexat ion Details LastModified Time Tobacco Smoking Status Current Some Day Smoker Angie rice PA - [facility] 05/25/2022 19:32:47 What Is Your Level Of Alcohol Consumption? None [email or web address] Information not available 05/25/2022 Have You Had Direct Contact, Or Contact During Intimacy, With Monkeypox Rash, Scabs, Or Body Fluids From A Person With Monkeypox? No Information not available 05/25/2022 How Much Tobacco Do You Smoke? 1 PPW Information not available 05/25/2022 Do You Use Any Illicit Or Recreational Drugs? No [email or web address] Information not available 05/25/2022 Have You Recently Traveled Abroad? No Information not available 05/25/2022 Do You Or [...] SNOMED-CT Code Diagnosis ICD10 Code Diagnosis Note [id number] [address] [facility] [address] [facility] [place] [address] 04/27/2020 12:38:30 04/27/2020 14:28:08 [id number] Yareli bell MD [address] [facility] [address] [facility] [address] 05/25/2022 18:31:14 05/25/2022 20:01:04 History and physical examination, pre-employment 340043287 Z02.1 [id number] Yareli bell MD [address] [place] [address] 05/25/2022 18:33:31 05/26/2022 09:06:55 Sprain of right knee 9984626315 2958508 S83.91XA Examinatio n for work accident 787444876 Z04.2 [id number] RANDY Wesley [address] [place] [address] 06/03/2022 17:18:17 06/03/2022 18:04:45 Sprain of right knee 1438161774 5092080 S83.91XD [id number] Ricardo Solo [place] [address] [place] [address] 06/14/2022 15:07:33 06/14/2022 16:12:29 Pain of right knee joint 2735509072 68132 M25.561 Accident phoenix avila engaged in work-related activity 96893848 X58.XXXD Health Concerns Section Related Observation LastModified [...] Dixon MD [address] [place], [address], PA - [facility] 05/30/2022 08:16:27 06/03/2022 [...] RANDY Wesley [address] [place], [address], PA - [facility] 06/03/2022 18:06:22 06/14/2022 text/html KneeReported bypatient.Notes:rig ht knee pain related to injury at work approximately 3 weeks ago. patient wants to go back to work full duty. did not follow up with physical therapy. Ricardo Solo NP [address] [facility] [place], [address], PA - [facility] 06/14/2022 16:49:44
== END 2024-10-06 15:36 | disposition home or self-care (01) ==
LOC: HO.HUSH 14:41
PROVIDERS: PCP Internal Medicine; Visit Provider Urology
DX: Z13.9 Encounter for screening, unspecified (principal)

== ENCOUNTER → 2024-10-06 14:41 | Outpatient (BNVA) | payer MEDICARE, SELFPAY | PROVIDERS: PCP Internal Medicine; Visit Provider Urology | DX: N50.812 Left testicular pain (principal); N32.0 Bladder-neck obstruction; E11.69 Type 2 diabetes mellitus with other specified complication; N52.1 Erectile dysfunction due to diseases classified elsewhere | CPT/HCPCS: 81003; 99212 ==

== ENCOUNTER 2024-10-11 08:49 | Outpatient (AMB) | payer MEDICARE, SELFPAY ==
--- NOTE | 2024-10-06 14:43 | A.OFFVIS_ITS ---
Vital Signs 10/11/24 09:02 Height 6 ft Weight 227 lb 1.218 oz BMI 30.8 BP 142/82 H Blood Pressure Location Rt brachial Position Sitting Pulse 80 Pulse Source Pulse Oximeter Pulse Oximetry (%) 98 Oxygen Delivery Method Room Air Intake Visit Reasons: T2DM Intake Note: Patient presents today for a follow-up for Type 2 Diabetes Mellitus: Last Diabetic eye exam was on: 06/2023 Last Podiatry exam was on: Does not see a Hospital Pharmacy Director Most recent HbA1c: 11.0%, 10/11/2024 Random Glucose- 152 mg/dL, Today Slat Pickler Required: No Accompanied by: Self / Same As Patient Allergies lisinopril Allergy (Unknown, Verified 10/11/24 09:08) lip swelling and cough, dizzy HPI Comments Details: Patient is a 74 yo male with DM type 2 diagnosed around 2009 who presents for management of diabetes. He was last seen one month ago. He has been changed to 75/25 insulin 04/2024 secondary to high co-pay on his other insulin. Hgb A1C: 11% 06/21/24:14 % 03/22/24 10.2%. Today we are faxing patient assistance forms for Yolanda care for Trulicity 0.75. He was given additional blank Yolanda care forms for which we could change him to Basaglar and Humalog. He will complete these and return to me over the next week. PMH: HLD, DM2, PVD Micro and macrovascular complications: + mild proliferative retinopathy, + nephropathy, +neuropathy, He was unable to tolerate metformin 1 g due to GI side effects, but has been able to tolerate 500 mg XR twice daily until last few weeks when he needed to decrease to once daily. He had been prescribed Trulicity in the past but could not afford co-pay, prescribed Farxiga in the past but did not start. He now has new insurance. He tried to fill Jardiance this past month but it was 800 dollar co-pay. I had given him forms for [employer] patient assistance for free Jardiance but he declined to start this as he has fears of amputation. Diabetes medications: metformin xr 500mg bid Humalog 75/25 48 units b.i.d. He tests glucose 1-2 times per day on most days. Some days he does not test at all. He had a few isolated readings in the 90s but for the most part glucoses running 250-300 Eye exam: last exam has retinopathy h/o mild proliferative retinopathy he sees Dr. Ann and was asked to have his merchandising execution manager send report. Nephropathy: EGFR>60 06/0607/28/23 microalbumin:58 HLD on statin LDL 84 06/06 Has neuropathy: Symptoms reported some numbness Hypoglycemia:very mild in am occasionally feels sweaty. non recent Physical activity: Walks about 3/4 - 1 mile most days Recent MALA shows possible moderate stenosis 2023. He was evaluated by Dr. Olsen, vascular surgeon. Stable claudication with duplex in 1 year. Complains of occasional cramping in his legs but not with walking. REPLACED BY [facility] Medical History Peripheral arterial disease Personal history of nicotine dependence Chest discomfort Intermittent palpitations Hx of skin malignancy Essential (primary) hypertension Vitamin D deficiency, unspecified Dyslipidemia, goal LDL below 100 Proteinuria, unspecified Type 2 diabetes mellitus with other diabetic kidney complication (~2009) Type 2 diabetes mellitus with diabetic polyneuropathy (~2009) Surgical History History of colonoscopy History of esophagogastroduodenoscopy (EGD) History of left inguinal hernia repair History of appendectomy History of squamous cell carcinoma excision Family History Father No problems noted. Mother Diabetes Social History Household Members: Family Household Members Other:: Daughter Housing: House Patient Tobacco Use Status: Current someday Tobacco user Tobacco use type: Cigarette Years Smoked: (Onset 16yo, 1ppd x 55yrs, 50pyh, quit 2018) e-Cigarette/Vaping Use: Never Used Current occupational status: employed Cognitive needs: Yes Hearing needs: No Vision needs: No Physical Exam Vital Signs: Last Vital Signs Pulse 80 10/11/24 09:02 BP 142/82 H 10/11/24 09:02 Pulse Ox 98 10/11/24 09:02 Oxygen Delivery Method Room Air 10/11/24 09:02 BMI result Body Mass Index 30.8 Const Other: Absence of Cushingoid features. Absence of acromegalic features. Neck exam reveals nl size thyroid about 15 gms. No thyroid nodules palpable. No carotid bruits present. Heart S1 S2, Reg R/R. No M/R G. Skin exam reveals absence of vitiligo or acanthosis nigricans. No edema Visual exam of foot performed. No ulcerations or open lesions. No inter digit maceration or fissuring. No onychomycosis, no callouses. Sensation intact to monofilament exam. Vibratory sensation is normal with 128 Hz tuning fork. pulse slight diminished Results AMB Hemoglobin A1c AMB Hemoglobin A1c 11.0 % Last Edit by TED Irizarry on 10/11/24 09:1 8 Results Reviewed Results Reviewed: Laboratory Last Values Glucose (Clinic) 152 mg/dL (60-115) H 10/11/24 09:09 Hgb A1c (Clinic) 11.0 % (4.0-6.0) H 10/11/24 09:16 Assessment & Plan Assessment & Plan (1) Type 2 diabetes mellitus with diabetic polyneuropathy: Onset Date: ~2009 Code(s): E11.42 - Type 2 diabetes mellitus with diabetic polyneuropathy Category: Medical Qualifiers: Diabetes mellitus custodial insulin use: with parts counterman use Qualified Code(s): E11.42 - Type 2 diabetes mellitus with diabetic polyneuropathy; Z79.4 - 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 He has complications of peripheral vascular disease followed by vascular, retinopathy, nephropathy and neuropathy. [facility] patient care assistance forms filled out today for Trulicity 0.75 advancing to 1.5. Increase 75/25 insulin to 52 units b.i.d. He declines starting Jardiance. He is willing to switch to Basaglar/Humalog twice daily through the [facility]'s assistance program and he will complete the form and return them to me for my input/prescription. As he has been struggling financially to afford his medication with high co-pay is hopefully obtaining patient assistance through [facility] we will improve his diabetes numbers. I will see him back in 1 month and he was urged to take his insulin regularly and follow up better diet. The patient had an opportunity to ask questions regarding treatment plan. The patient expressed understanding and agreement with the above treatment plan. The patient is aware they should contact our office by phone for worsening glucose readings or for any low blood sugars which may warrant a change in diabetes medication. Compliance is encouraged with medications and any followup testing/consults which may have been ordered. Orders: Orders AMB Hemoglobin A1c Today E11.29 - Type 2 diabetes mellitus with other diabetic kidney complication Medications: New dulaglutide (Trulicity) 0.75 mg (0.5 mL) subcut QWEEK 90 days 6 mL 0RF Changed From Humalog Mix 75-25 KwikPen 100 unit/mL (75-25) (insulin lispro protamin- lispro) 64 units before breakfast and 46 units before supper subcutaneously 2 times a day; 90 days 99 mL 3RF NS To Humalog Mix 75-25 KwikPen 100 unit/mL (75-25) (insulin lispro protamin- lispro) 52 units bid 90 days 99 mL 3RF NS Patient Instructions: The patient was counseled to achieve a target A1C of 7% (154 avg). Fasting blood sugars should be 90-130 in the morning and less than 180 two hours after meals. Reviewed the relationship between poor diabetic control and the development of complications. Check your feet daily looking for any signs of infection, drainage, redness, ulceration and seek medical attention if this occurs. Break in shoes gradually and do not wear open-toed shoes or walk stocking footed or barefooted. Coding Level of Care Code Est Pt Level 4 (78399) Complex EM visit Add On G2211 Diagnoses Type 2 diabetes mellitus with diabetic polyneuropathy, with long-term current use of insulin E11.42; Z79.4 Diabetes mellitus parts counterman insulin use: with parts counterman use Time Spent (min) 30 Comment Time spent reviewing labs/provider notes, face to face, chart doc
[2024-10-11 09:02] VITALS: BP 142/82; PULSE 80; O2SAT 98; BMI 30.8
--- OUTSIDE RECORDS SUMMARY | 2024-10-11 09:12 | XMS_ITS | Data Portability ---
Author Organization RANDY Castellon s, [address] Address [address] [place] [address] Care Team Providers Care Regional Economist Name Role Phone [facility] Primary Care Provider SIMON WALKER Fiber Optics Technician Assessment No assessment recorded. Plan of Treatment Reminders Order Date Submit Date Provider Last Modified By Organization Details Last Modified Time Details Appointments None recorded. Lab None recorded. Referral physical therapist referral 2021 [email or web address] Not available 10:52:10 Procedures None recorded. Surgeries None recorded. Imaging XR, knee, 3 view 2021 acardinal 3 [facility], [address] [place] [address], [address], 09:06:55 Medication Orders naproxen 500 mg tablet 2021 [facility], [address] [facility], [place], [address], 17:45:25 Patient TargetsNo targets recorded. Patient Instructions Encounter Date Encounter Id Patient Instructions Last Modified By Organization Details Last Modified Time 05/25/2022 [id number] You should follow-up with your PCP in days, or at any time if your condition does not improve or worsens. Any acute change should prompt a visit to the nearest Emergency Department. Rest . Ice . Elevation . Limited activity . Advil or Tylenol for pain if tolerated. [email or web address] Not available 05/30/2022 08:14:23 06/03/2022 [id number] knee: exercises [email or web address] Not availab le 06/03/2022 17:45:23 Go to [...] Advil or Tylenol for pain if tolerated. [email or web address] Not available 06/03/2022 18:03:01 06/14/2022 [id number] learning about rice (rest, ice, compression, and [...] 3 view No observ ation record ed. [email or web address] [facility] [address] [facility] [place], [address], 05/25/2022 20:32:33 05/26/20 22 XR, knee, 3 view No observ ation record ed. [email or web address] [facility] [address] [facility] [place], [address], 05/26/2022 11:30:24 Result Notes None recorded. Problems Name Problem SNOMED Code Status Onset Date Resolution Date Notes Provider Name and Address Organization Details Recorded Time Hypertensive disorder 38539989 Active 2021 Angie rice, PA - [facility] 19:31:49 Hyperlipidemia 07090676 Active 2021 Angie rice, PA - [facility] 19:31:59 Type 2 diabetes mellitus 27887310 Active 2021 Angie rice, PA - [facility] 19:32:14 Problem Notes None recorded. Procedures Surgical History Date Name Laterality Status Provider Name and Address Organization Details Recorded Time 05/25/20 22 Jonathan Bandage completed Yareli Dixon MD [address] [place], [address], PA - [facility] 05/30/2022 08:16:06 05/25/20 22 KNEE IMMOBILIZER - 14 inches completed Yareli Dixon MD [address] [place], [address], PA - [facility] 05/30/2022 08:15:29 05/25/20 [...] Time 05/25/2022 XR, knee, 3 view completed [email or web address] [facility] [address] [place], [address], 05/25/2022 20:32:33 05/26/2022 XR, knee, 3 view completed [email or web address] [facility] [address] [place], [address], 05/26/2022 11:30:24 Procedure Notes None recorded. Medical [...] Updated DateTime 05/25/2022 182.88 cm 27.8 kg/m2 91292.44 g 8 Angie Kaye [facility] - [facility] [...] Updated DateTime 2 182.88 cm 28.9 kg/m2 68204.1 7 g 8 97 % 97 % [...] 182.88 cm 0 18 /min 28.9 kg/m2 02517.1 7 g 98 % 98 % 86 /min 97.1 [degF] 145 mm[Hg] 73 mm[Hg] LINWOOD TAVAREZ RA PA - [facility] 3 15:37:53 Social History Question Answer Notes LastModified by Hapticomat ion Details LastModified Time Tobacco Smoking Status Current Some Day Smoker Angie rice PA - [facility] 05/25/2022 19:32:47 What Is Your Level Of Alcohol Consumption? None [email or web address] Information not available 05/25/2022 Have You Had Direct Contact, Or Contact During Intimacy, With Monkeypox Rash, Scabs, Or Body Fluids From A Person With Monkeypox? No [email or web address] Information not available 05/25/2022 How Much Tobacco Do You Smoke? 1 PPW [email or web address] Information not available 05/25/2022 Do You Use Any Illicit Or Recreational Drugs? No Information not available 05/25/2022 Have You Recently Traveled Abroad? No [email or web address] Information not available 05/25/2022 Do You Or [...] SNOMED-CT Code Diagnosis ICD10 Code Diagnosis Note [id number] [address] [facility] [address] [place] [address] 04/27/2020 12:38:30 04/27/2020 14:28:08 [id number] Yareli bell MD [address] [facility] [address] [place] [address] 05/25/2022 18:31:14 05/25/2022 20:01:04 History and physical examination, pre-employment 242984558 Z02.1 [id number] Yareli ebll MD [address] [place] [address] 05/25/2022 18:33:31 05/26/2022 09:06:55 Sprain of right knee 5346161098 9402181 S83.91XA Examinatio n for work accident 677419743 Z04.2 [id number] RANDY Wesley [address] [address] 06/03/2022 17:18:17 06/03/2022 18:04:45 Sprain of right knee 3677455092 7381815 S83.91XD [id number] Ricardo Solo NP [address] [address] 06/14/2022 15:07:33 06/14/2022 16:12:29 Pain of right knee joint 3777673273 48373 M25.561 Accident phoenix avila engaged in work-related activity 98232496 X58.XXXD Health Concerns Section Related Observation LastModified [...] Dixon MD [address] [place], [address], PA - [facility] 05/30/2022 08:16:27 06/03/2022 [...] RANDY Wesley [address] [place], [address], PA - [facility] 06/03/2022 18:06:22 06/14/2022 text/html KneeReported bypatient.Notes:rig ht knee pain related to injury at work approximately 3 weeks ago. patient wants to go back to work full duty. did not follow up with physical therapy. Ricardo Solo NP [address] [facility] [place], [address], PA - [facility] 06/14/2022 16:49:44
[2024-10-11 09:13] LABS: Glucose, Whole Blood 152 mg/dL (60-115)
== END 2024-10-11 09:28 | disposition home or self-care (01) ==
LOC: HO.ENCR 08:50
PROVIDERS: PCP Internal Medicine; Visit Provider Nurse Practitioner Adult Health
DX: E11.42 Type 2 diabetes mellitus with diabetic polyneuropathy (principal); Z79.4 Long term (current) use of insulin; E11.29 Type 2 diabetes mellitus with other diabetic kidney complication
CPT/HCPCS: 99214; G2211

== ENCOUNTER → 2024-10-11 08:49 | Outpatient (BNVA) | payer MEDICARE, SELFPAY | PROVIDERS: PCP Internal Medicine; Visit Provider Nurse Practitioner Adult Health | DX: E11.42 Type 2 diabetes mellitus with diabetic polyneuropathy (principal); Z79.4 Long term (current) use of insulin | CPT/HCPCS: 82947; 83036; 99212 ==

== ENCOUNTER 2024-11-10 09:54 | Outpatient (AMB) | payer MEDICARE, SELFPAY ==
--- NOTE | 2024-11-10 07:21 | A.OFFVIS_ITS ---
Vital Signs 11/10/24 09:59 Height 6 ft Weight 233 lb 11.04 oz BMI 31.7 BP 120/84 Blood Pressure Location Rt brachial Position Sitting Pulse 86 Pulse Source Pulse Oximeter Pulse Oximetry (%) 98 Oxygen Delivery Method Room Air Intake Visit Reasons: T2DM Intake Note: Patient presents today for a follow-up for Type 2 Diabetes Mellitus: Last Diabetic eye exam was on: 06/2023 Last Podiatry exam was on: Does not see a Structural Welder Most recent HbA1c: 11.0%, 10/11/2024 Random Glucose- 71 mg/dL, Today Full Service Supervisor Required: No Accompanied by: Self / Same As Patient Allergies lisinopril Allergy (Unknown, Verified 11/10/24 10:04) lip swelling and cough, dizzy HPI Comments Details: Patient is a 74 yo male with DM type 2 diagnosed around 2009 who presents for management of diabetes. He was last seen . He has been changed to 75/25 insulin 04/2024 secondary to high co-pay on his other insulin. Hgb A1C: 10/11/24 11% 06/21/24:14 % 03/22/24 10.2%. Patient had a glucose of 71 in the clinic. He adamantly declined having his blood sugar treated. He reports he did take his insulin this morning and did not eat. He has applied to patient assistance through [employer]. He was given additional blank [employer] forms for which we could change him to Basaglar and Humalog which he has decided not to do. PMH: HLD, DM2, PVD Micro and macrovascular complications: + mild proliferative retinopathy, + nephropathy, +neuropathy,pvd He was unable to tolerate metformin 1 g due to GI side effects, but has been able to tolerate 500 mg XR twice daily until spring 2024 when he needed to titrate down to one tablet due to GI intolerance. He is now back to taking twice daily. He had been prescribed Trulicity in the past but could not afford co-pay, prescribed Farxiga in the past but did not start. He now has new insurance. He tried to fill Jardiance this several months ago but it was 800 dollar co-pay. I had given him forms for BI patient assistance for free Jardiance but he declined to start this as he has fears of amputation. His insurance company shipped Trulicity to him which he was upset because he did not want to take it due to high co-pay of 300 dollars. Since he was billed for this he is taking it now without side effects. Diabetes medications: trulicity 0.75 mg weekly 70/30 48 units am 70/30 48 units pm Metformin XR 500 mg once daily twice daily Eye exam: last exam has retinopathy h/o mild proliferative retinopathy he sees Dr. Ann and was asked to have his financial coordinator send report. Nephropathy: EGFR>60 06/0607/28/23 microalbumin:58 HLD on statin LDL 84 06/06 Has neuropathy: Symptoms reported some numbness He had a stress test several years ago at [facility] and saw cardiology. He reports that 3 times this winter he became sweaty while shoveling. He did not feel lightheaded and denied chest pain or shortness of breath. Bryant his heart was pounding too fast. He has had no chest pain. Hypoglycemia: occasional very mild in am occasionally feels sweaty. non recent Physical activity: Walks about 3/4 - 1 mile most days Recent MALA shows possible moderate stenosis 2023. He was evaluated by Dr. Olsen, vascular surgeon. Stable claudication with duplex in 1 year. Complains of occasional cramping in his legs but not with walking. [facility] Medical History Peripheral arterial disease Personal history of nicotine dependence Chest discomfort Intermittent palpitations Hx of skin malignancy Essential (primary) hypertension Vitamin D deficiency, unspecified Dyslipidemia, goal LDL below 100 Proteinuria, unspecified Type 2 diabetes mellitus with other diabetic kidney complication (~2009) Type 2 diabetes mellitus with diabetic polyneuropathy (~2009) Surgical History History of colonoscopy History of esophagogastroduodenoscopy (EGD) History of left inguinal hernia repair History of appendectomy History of squamous cell carcinoma excision Family History Father No problems noted. Mother Diabetes Social History Household Members: Family Household Members Other:: Daughter Housing: House Patient Tobacco Use Status: Current someday Tobacco user Tobacco use type: Cigarette Years Smoked: (Onset 16yo, 1ppd x 55yrs, 50pyh, quit 2019) e-Cigarette/Vaping Use: Never Used Current occupational status: employed Cognitive needs: Yes Hearing needs: No Vision needs: No Physical Exam Vital Signs: Last Vital Signs Pulse 86 11/10/24 09:59 BP 120/84 11/10/24 09:59 Pulse Ox 98 11/10/24 09:59 Oxygen Delivery Method Room Air 11/10/24 09:59 BMI result Body Mass Index 31.7 Const Other: Absence of Cushingoid features. Absence of acromegalic features. Heart S1 S2, Reg R/R. No M/R G. Skin exam reveals absence of vitiligo or acanthosis nigricans. Results Reviewed Results Reviewed: Laboratory Last Values Glucose (Clinic) 71 mg/dL (60-115) 11/10/24 10:02 Assessment & Plan Assessment & Plan (1) Type 2 diabetes mellitus with diabetic polyneuropathy: Onset Date: ~2009 Code(s): E11.42 - Type 2 diabetes mellitus with diabetic polyneuropathy Category: Medical Qualifiers: Diabetes mellitus laborer marine terminal insulin use: with jail use Qualified Code(s): E11.42 - Type 2 diabetes mellitus with diabetic polyneuropathy; Z79.4 - buttermaker (current) use of insulin Plan: 74-year-old type 2 diabetic with mild retinopathy, neuropathy and nephropathy with improving glycemic control but numbers still above target. He was counseled that he needs to take his insulin and eat 3 regular meals during the day. I reviewed onset of action duration of when the insulin is peaking. This morning he took his insulin without eating and was low in the clinic. He was not symptomatic. He declined treatment. He told medical investigator he has a banana in the car if needed. He was advised that driving with a low sugar could lead to an accident and that it was against medical advice for him to leave without treatment. I advised him that should an accident occur that it will be his responsibility. I reviewed at length how to time insulin with meals. He just started Trulicity. I am reluctant to make any increase in his insulin due to his erratic eating patterns and failure to test on a regular basis. He has declined a glucose sensor in the past which would be the safest way to monitor his sugar. He does report he had so full episodes of diaphoresis this winter with snow shoveling. He denied chest pain but felt his heart was pounding. I counseled him that this could be related to low sugar but could also be cardiac related and advised that he schedule a follow up appointment with his PCP or that he could contact his retail representative. He was advised if he has an episode of sweating like that but he should immediately check his sugar. Seek emergency medical attention. 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
[2024-11-10 09:59] VITALS: BP 120/84; PULSE 86; O2SAT 98; BMI 31.7
[2024-11-10 10:06] LABS: Glucose, Whole Blood 71 mg/dL (60-115)
== END 2024-11-10 10:18 | disposition home or self-care (01) ==
LOC: HO.ENCR 09:57
PROVIDERS: PCP Internal Medicine; Visit Provider Nurse Practitioner Adult Health
DX: E11.42 Type 2 diabetes mellitus with diabetic polyneuropathy (principal); Z79.4 Long term (current) use of insulin
CPT/HCPCS: 99214; G2211

== ENCOUNTER → 2024-11-10 09:54 | Outpatient (BNVA) | payer MEDICARE, SELFPAY | PROVIDERS: PCP Internal Medicine; Visit Provider Nurse Practitioner Adult Health | DX: E11.3599 Type 2 diabetes mellitus with proliferative diabetic retinopathy without macular edema, unspecified eye (principal); E11.21 Type 2 diabetes mellitus with diabetic nephropathy; E11.51 Type 2 diabetes mellitus with diabetic peripheral angiopathy without gangrene; E11.42 Type 2 diabetes mellitus with diabetic polyneuropathy; Z79.4 Long term (current) use of insulin | CPT/HCPCS: 82947; 99212 ==

== ENCOUNTER 2025-02-09 09:27 | Outpatient (AMB) | payer MEDICARE, SELFPAY ==
--- NOTE | 2025-02-09 09:35 | MHC.OFFVIS ---
Vital Signs 02/09/25 09:37 02/09/25 10:08 Height 6 ft Weight 231 lb 0.711 oz BMI 31.3 BP 148/68 H 140/64 H Blood Pressure Location Rt brachial Position Sitting Pulse 79 Pulse Source Pulse Oximeter Pulse Oximetry (%) 97 Oxygen Delivery Method Room Air Intake Visit Reasons: T2DM Intake Note: Patient present today to follow up on Type 2 Diabetes Mellitus. 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 It is my 1st visit with this patient. He was previously followed by my colleague. He was diagnosed with diabetes around 2009. Hemoglobin a1c 8.6% down from 11%. Per the last providers notes he was given Yolanda care forms to change him to Basaglar and Humalog, but he declined to do this. Current medication regimen: Trulicity 0.75 mg weekly. He stopped Trulicity due to injection site reaction (pain and itching at site, no hives or trouble breathing) Humalog mix 75/25 48 units in the morning and 48 units in the evening Metformin extended release 500 mg twice daily (he is taking one per day due to diarrhea) Complications: Nephropathy (microalbuminuria), neuropathy, peripheral arterial disease Evaluated by Dr. Olsen. He is on simvastatin. He is on amlodipine losartan for renal protection and hypertension. Denies hypoglycemia. He likes to drink Coca-Cola. ROS: Constitutional: No fevers or chills Respiratory: No shortness of breath. Cardiovascular: No chest pain Gastrointestinal: No anorexia, nausea, vomiting or diarrhea. No abdominal pain Neurologic: Endorses numbness and tingling in the feet. Physical exam: Constitutional: Alert, in no distress. Neck: Supple, Full range of motion. No lymphadenopathy. No palpable thyroid masses. Respiratory: Clear to auscultation. Cardiovascular: S1 S2 regular. No murmurs PFSH Medical History (Updated 11/27/24 @ 12:35 by Annette Westfall PA-C) Personal history of nicotine dependence Peripheral arterial disease Chest discomfort Intermittent palpitations Hx of skin malignancy Essential (primary) hypertension Vitamin D deficiency, unspecified Dyslipidemia, goal LDL below 100 Proteinuria, unspecified Type 2 diabetes mellitus with other diabetic kidney complication (~2009) Type 2 diabetes mellitus with diabetic polyneuropathy (~2009) Surgical History History of colonoscopy History of esophagogastroduodenoscopy (EGD) History of left inguinal hernia repair History of appendectomy History of squamous cell carcinoma excision Family History Father No problems noted. Mother Diabetes Social History Household Members: Family Household Members Other:: Daughter Housing: House Patient Tobacco Use Status: Current someday Tobacco user Tobacco use type: Cigarette Years Smoked: (Onset 16yo, 1ppd x 55yrs, 50pyh, quit 2018) e-Cigarette/Vaping Use: Never Used Current occupational status: employed Cognitive needs: Yes Hearing needs: No Vision needs: No Physical Exam Vital Signs: Last Vital Signs Pulse 79 02/09/25 09:37 BP 140/64 H 02/09/25 10:08 Pulse Ox 97 02/09/25 09:37 Oxygen Delivery Method Room Air 02/09/25 09:37 BMI result Body Mass Index 31.3 Results AMB Hemoglobin A1c AMB Hemoglobin A1c 8.6 % Last Edit by TED Huerta on 02/09/25 10:00 Results Reviewed Results Reviewed: Laboratory Last Values Glucose (Clinic) 242 mg/dL (60-115) H 02/09/25 09:44 Hgb A1c (Clinic) 8.6 % (4.0-6.0) H 02/09/25 09:47 Laboratory Tests 05/31/24 06/29/24 10/11/24 10:30 10:49 09:16 Hgb A1c (Clinic) 11.0 H AST 21 ALT 21 Cholesterol 196 LDL Cholesterol, Calc 84 HDL Cholesterol 37 L Urine Creatinine 412.31 Urine Microalbumin 241.0 Microalb/Creat Ratio 58.4 H Laboratory Tests 05/31/24 10:30 Creatinine 1.17 Estimated GFR > 60 Assessment & Plan Assessment & Plan (1) Type 2 diabetes mellitus with other diabetic kidney complication: Onset Date: ~2009 Code(s): E11.29 - Type 2 diabetes mellitus with other diabetic kidney complication Category: Medical Plan: In summary this is a 74-year-old male with uncontrolled albeit improving type 2 diabetes. Continue Humalog mix 75/25 48 units twice daily. Continue metformin extended release 500 mg daily. He does not tolerate higher dosages due to diarrhea. Stopped Trulicity due to injection site reaction. Trial of Ozempic 0.25 mg weekly. Patient denies contraindications to GLP 1. Side effects reviewed. Reviewed treatment of hypoglycemia with the patient. Lifestyle modifications reviewed. He needs to stopped drinking soda. (2) Essential (primary) hypertension: Code(s): I10 - Essential (primary) hypertension Category: Medical Plan: His blood pressure is mildly elevated today. He is taking his medications. Advised patient to cut back on caffeinated soda. Recheck at next visit. Plan Follow up in 6 weeks for type 2 diabetes. Patient asked to have fasting lab work done prior to that visit. Orders: Orders Lipid Panel Today E78.5 - Hyperlipidemia, unspecified Vitamin B12 Today Z91.89 - Other specified personal risk factors, not elsewhere classified Aspartate Amino Transferase Today E11.42 - Type 2 diabetes mellitus with diabetic polyneuropathy, I10 - Essential (primary) hypertension, Z79.4 - [facility] (current) use of insulin Alanine Aminotransferase Today E11.42 - Type 2 diabetes mellitus with diabetic polyneuropathy, I10 - Essential (primary) hypertension, Z79.4 - [facility] (current) use of insulin AMB Hemoglobin A1c Today E11.29 - Type 2 diabetes mellitus with other diabetic kidney complication Creatinine Today E11.9 - Type 2 diabetes mellitus without complications Medications: New semaglutide (Ozempic) for 4 weeks 0.25 mg (0.368 mL) subcut QWEEK 3 mL 0RF Discontinued dulaglutide (Trulicity) Discontinued Reason: Doctor's Order 0.75 mg (0.5 mL) subcut QWEEK 90 days 6 mL 0RF Patient Instructions: Stop Trulicity. Start Ozempic 0.25 mg once weekly. Humalog mix 75/25 48 units in the morning and 48 units in the evening Metformin extended release 500 mg once daily If you experience low blood sugar, treat this by eating a chewable fruit candy like skittles or jelly beans (about 8 pieces), 4 ounces (1/2 cup) of fruit juice (not diet), 1 tablespoon of honey or 4 glucose tablets. If your blood sugar is under 50, take double the amount of one of the above. Recheck your blood sugar in 15 minutes. Please have labwork done prior to your next appointment. Coding Level of Care Code Est Pt Level 4 (18008) Complex EM visit Add On G2211 Diagnoses Type 2 diabetes mellitus with other diabetic kidney complication E11.29 Essential (primary) hypertension I10
[2025-02-09 09:37] VITALS: BP 148/68; PULSE 79; O2SAT 97; BMI 31.3
[2025-02-09 09:48] LABS: Glucose, Whole Blood 242 mg/dL (60-115)
[2025-02-09 10:08] VITALS: BP 140/64
--- OUTSIDE RECORDS SUMMARY | 2025-02-09 10:15 | XMS_ITS ---
Author Name [facility] Organization Unknown Encounters Encounter Type Encounter Reason Primary Diagnosis Location Date Ambulatory [facility] ([facility]) 05/25/2022
--- OUTSIDE RECORDS SUMMARY | 2025-02-09 10:15 | XMS_ITS | Patient Health Record ---
Author Organization [facility] Address [address] [place] [id number] Care Team Providers Care Psych Arnp Name Role Phone Shai CRUZ, Rochelle Primary Care Provider Santo Wyatt Jr, Jarod Unavailable [phone] Reason For Referral No Information Medications Medication SIG (Take, Route, Frequency, Duration) Notes Start Date End Date Status Aspirin 81 81 MG 1 tablet Orally Once a day for 30 day(s) Active Fish Oil 1000 MG 1 capsule Orally Onc e a day for 30 day(s) Active Colyte with Flavor Packs 240 GM As directed Orally Over the specified time. for 1 day(s) 07/07/2018 Active Losartan Potassium 25 MG TAKE 1 TABLET B Y MOUTH EVERY DAY Oral for 90 Active Simvastatin 20 MG TAKE 1 TABLET BY SOLANGE TH EVERY DAY IN THE EVENING Oral for 90 Active metFORMIN HCl 1000 MG TAKE 1 TABLET BY M OUTH TWICE A DAY TWICE A DAY Oral for 90 Active Immunizations Vaccine Route Administration Date Status Comme nts Influenza Unknown 02/12/2018 Administered Social History Tobacco Use: Social History Observation Description Date Details (start date - stop date) Current Smoker NA - NA Tobacco Use/Smoking Question Answer Notes Patient is a current smoker How often do you smoke cigarettes? every day How many cigarettes a day do you smoke? 21-30 Alcohol Screen Question Answer Notes Did you have a drink containing alcohol in the p ast year? No Points 0 Interpretation Negative Problems Problem Type SNOMED Code ICD Code Onset Dates Problem Status W/U Status Risk Notes Problem [id number] Change in bowel habits (R19.4) Active confirmed Plan Of Treatment No Information Insurance Providers Payer Name Payer Address Payer Phone Subscriber Number Group Number Insured Name Patient Relationship to Insured Coverage Start Date Coverage End Date MEDICARE OF [place] [address] [place] [address] [phone] [id number] DELFINO CHEW Self - patient is the insured Medical (General) History Medical History History ICD Code diabetes mellitus hypertension elevated cholesterol Surgical History Surgery Date(Month/Year) appendectomy
== END 2025-02-09 10:15 | disposition home or self-care (01) ==
LOC: HO.ENCR 09:27
PROVIDERS: PCP Internal Medicine; Visit Provider Physician Assistant Medical
DX: E11.29 Type 2 diabetes mellitus with other diabetic kidney complication (principal); I10 Essential (primary) hypertension

== ENCOUNTER → 2025-02-09 09:27 | Outpatient (BNVA) | payer MEDICARE, SELFPAY | PROVIDERS: PCP Internal Medicine; Visit Provider Physician Assistant Medical | DX: E11.29 Type 2 diabetes mellitus with other diabetic kidney complication (principal); E11.42 Type 2 diabetes mellitus with diabetic polyneuropathy; I10 Essential (primary) hypertension; Z79.4 Long term (current) use of insulin | CPT/HCPCS: 82947; 83036; 99212 ==

== ENCOUNTER 2025-03-27 09:25 | Outpatient (AMB) | payer MEDICARE, SELFPAY ==
--- NOTE | 2025-03-27 09:26 | A.OFFVIS_ITS ---
Vital Signs 03/27/25 09:29 Height 6 ft Weight 232 lb 2.348 oz BMI 31.5 BP 142/68 H Blood Pressure Location Rt brachial Position Sitting Pulse 86 Pulse Source Pulse Oximeter Pulse Oximetry (%) 96 Oxygen Delivery Method Room Air Intake Visit Reasons: Type II diabetes Intake Note: Patient present today to follow up on Type 2 Diabetes Mellitus. 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 Accompanied by: Self / Same As Patient Allergies lisinopril Allergy (Unknown, Verified 03/27/25 09:29) lip swelling and cough, dizzy Medication List - Last Reconciled 03/27/25 by RANDY Lombardi amlodipine 5 mg PO QPM aspirin (Adult Low Dose Aspirin) 81 mg PO DAILY blood sugar diagnostic ([employer] Verio test strips) As directed 4 times a day blood-glucose meter ([employer] Verio Flex Start kit) As directed to test blood glucose two times a day dicyclomine 20 mg PO QID Humalog Mix 75-25 KwikPen 100 unit/mL (75-25) (insulin lispro protamin-lispro) 48 units bid 90 days NS lancets ([employer] Delica Lancets) As directed twice a day losartan 100 mg PO DAILY metformin ER 500 mg PO BID 30 days omega-3 fatty acids (Fish Oil Concentrate) 1,000 mg PO DAILY pen needle, diabetic (BD Delmy 2nd Gen Pen Needle) twice daily semaglutide (Ozempic) 0.5 mg (0.736 mL) subcut QWEEK simvastatin 20 mg PO BEDTIME tadalafil 5 mg PO DAILY 90 days HPI Comments Details: This is a 75-year-old male with a past medical history of peripheral arterial disease, hypertension, hyperlipidemia, type 2 diabetes and vitamin-D deficiency presenting for diabetic management. He was diagnosed with diabetes around 2009. Hemoglobin a1c 8.6% down from 11%. Current medication regimen: Ozempic 0.25 mg weekly Humalog mix 75/25 48 units in the morning and 48 units in the evening Metformin extended release 500 mg once daily (higher dosage causes diarrhea) I reviewed the download from his glucometer. Blood sugars are in target range 27%. Highest blood sugar was 355. Lowest blood sugar was 116. Average blood sugar is 232. Hyperglycemia is worse overnight. He is trying to decrease carbohydrates and sugars in the evening. He denies side effects on Ozempic. Past medication: Trulicity discontinued due to injection site reaction (pain and itching at the site) Complications: Nephropathy (microalbuminuria), neuropathy, peripheral arterial disease Evaluated by Dr. Olsen. He is on simvastatin. He is on amlodipine and losartan for renal protection and hypertension. Patient says he ran out of losartan, and his blood pressure is high today. He does not remember when he ran out of it. Denies hypoglycemia. He is still drinking Coca-Cola. ROS: Constitutional: No fevers or chills Respiratory: No shortness of breath. Cardiovascular: No chest pain Gastrointestinal: No anorexia, nausea, vomiting or diarrhea. No abdominal pain Neurologic: Endorses numbness and tingling in the feet. Physical exam: Constitutional: Alert, in no distress. Neck: Supple, Full range of motion. No lymphadenopathy. No palpable thyroid masses. Respiratory: Clear to auscultation. Cardiovascular: S1 S2 regular. No murmurs Right foot: Warm and well perfused. No clubbing, cyanosis or edema. Intact DP pulse. Decreased vibratory sensation. Intact sensation to monofilament. No open wounds. Left foot: Warm and well perfused. No clubbing, cyanosis or edema. Intact DP pulse. Decreased vibratory sensation. Intact sensation to monofilament. No open wounds. [facility] Medical History (Updated 11/27/24 @ 12:35 by Annette Westfall PA-C) Personal history of nicotine dependence Peripheral arterial disease Chest discomfort Intermittent palpitations Hx of skin malignancy Essential (primary) hypertension Vitamin D deficiency, unspecified Dyslipidemia, goal LDL below 100 Proteinuria, unspecified Type 2 diabetes mellitus with other diabetic kidney complication (~2009) Type 2 diabetes mellitus with diabetic polyneuropathy (~2009) Surgical History History of colonoscopy History of esophagogastroduodenoscopy (EGD) History of left inguinal hernia repair History of appendectomy History of squamous cell carcinoma excision Family History Father No problems noted. Mother Diabetes Social History Household Members: Family Household Members Other:: Daughter Housing: House Patient Tobacco Use Status: Current someday Tobacco user Tobacco use type: Cigarette Years Smoked: (Onset 16yo, 1ppd x 55yrs, 50pyh, quit 2019) e-Cigarette/Vaping Use: Never Used Current occupational status: employed Cognitive needs: Yes Hearing needs: No Vision needs: No Physical Exam Vital Signs: Last Vital Signs Pulse 86 03/27/25 09:29 BP 142/68 H 03/27/25 09:29 Pulse Ox 96 03/27/25 09:29 Oxygen Delivery Method Room Air 03/27/25 09:29 BMI result Body Mass Index 31.5 Results Reviewed Results Reviewed: Laboratory Tests 05/31/24 06/29/24 10/11/24 10:30 10:49 09:16 Hgb A1c (Clinic) 11.0 H AST 21 ALT 21 Cholesterol 196 LDL Cholesterol, Calc 84 HDL Cholesterol 37 L Urine Creatinine 412.31 Urine Microalbumin 241.0 Microalb/Creat Ratio 58.4 H Laboratory Tests 05/31/24 10:30 Creatinine 1.17 Estimated GFR > 60 Assessment & Plan Assessment & Plan (1) Type 2 diabetes mellitus with other diabetic kidney complication: Onset Date: ~2009 Code(s): E11.29 - Type 2 diabetes mellitus with other diabetic kidney complication Category: Medical Plan: In summary this is a 74-year-old male with uncontrolled type 2 diabetes. Continue Humalog mix 75/25 48 units twice daily. Continue metformin extended release 500 mg daily. He does not tolerate higher dosages due to diarrhea. Increase Ozempic to 0.5 mg weekly. Reviewed potential side effects. Reviewed treatment of hypoglycemia with the patient. Lifestyle modifications reviewed. He needs to stopped drinking soda. (2) Essential (primary) hypertension: Code(s): I10 - Essential (primary) hypertension Category: Medical Plan: I sent a prescription for losartan to his pharmacy. He declined a supply to the local pharmacy did start until he receives it from mail order. Continue amlodipine. Recommended decreasing caffeine and sodium in his diet. (3) Dyslipidemia, goal LDL below 100: Code(s): E78.5 - Hyperlipidemia, unspecified Category: Medical Plan: He is treated with a statin. He is reminded to have lab work done. Recommended low-cholesterol high-fiber diet. Plan Follow up in 6 weeks for type 2 diabetes. Patient asked to have fasting lab work done prior to that visit. Medications: Changed From semaglutide (Ozempic) for 4 weeks 0.25 mg (0.368 mL) subcut QWEEK 3 mL 0RF To semaglutide (Ozempic) for 4 weeks 0.5 mg (0.736 mL) subcut QWEEK 3 mL 0RF Refilled losartan 100 mg PO DAILY 90 tabs 0RF Humalog Mix 75-25 KwikPen 100 unit/mL (75-25) (insulin lispro protamin-lispro) 48 units bid 99 mL 3RF 90 days NS Patient Instructions: Increase Ozempic to 0.5 mg weekly Continue Humalog mix 75/25 48 units in the morning and 48 units in the evening Continue Metformin extended release 500 mg once daily (higher dosage causes diarrhea) Coding Level of Care Code Est Pt Level 4 (29166) Complex EM visit Add On G2211 Diagnoses Type 2 diabetes mellitus with other diabetic kidney complication E11.29 Essential (primary) hypertension I10 Dyslipidemia, goal LDL below 100 E78.5
[2025-03-27 09:29] VITALS: BP 142/68; PULSE 86; O2SAT 96; BMI 31.5
[2025-03-27 09:39] LABS: Glucose, Whole Blood 223 mg/dL (60-115)
--- OUTSIDE RECORDS SUMMARY | 2025-03-27 10:20 | XMS_ITS | Patient Health Record ---
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 Name Role Phone Shai CRUZ, Rochelle Primary Care Provider Santo Wyatt Jr Jarod Unavailable Reason For Referral No Information Medications Medication SIG (Take, Route, Frequency, Duration) Notes Start Date End Date Status Aspirin 81 81 MG 1 tablet Orally Once a day; Duration: 30 day(s) Active Fish Oil 1000 MG 1 capsule Orally Onc e a day; Duration: 30 day(s) Active Colyte with Flavor Packs 240 GM As directed Orally Over the specified time.; Duration: 1 day(s) 07/07/2018 Active Losartan Potassium 25 MG TAKE 1 TABLET B Y MOUTH EVERY DAY Oral; Duration: 90 Active Simvastatin 20 MG TAKE 1 TABLET BY SOLANGE TH EVERY DAY IN THE EVENING Oral; Duration: 90 Active metFORMIN HCl 1000 MG TAKE 1 TABLET BY M OUTH TWICE A DAY TWICE A DAY Oral; Duration: 90 Active Immunizations Vaccine Route Administration Date [...] Problem Status W/U Status Risk Notes Problem Change in bowel habit (13699011) Change in bowel habits (R19.4) Active confirmed Plan Of Treatment No Information Insurance Providers Payer Name Payer Address Payer Phone Subscriber Number Group Number Insured Name Patient Relationship to Insured Coverage Start Date Coverage End Date MEDICARE OF [place] [address] [place] [address] [phone] [id number] DELFINO CHEW Self - patient is the insured Medical (General) History Medical History History ICD Code diabetes mellitus hypertension elevated cholesterol Surgical History Surgery Date(Month/Year) appendectomy
== END 2025-03-27 10:09 | disposition home or self-care (01) ==
LOC: HO.ENCR 09:25
PROVIDERS: PCP Internal Medicine; Visit Provider Physician Assistant Medical
DX: E11.29 Type 2 diabetes mellitus with other diabetic kidney complication (principal); I10 Essential (primary) hypertension; E78.5 Hyperlipidemia, unspecified

== ENCOUNTER → 2025-03-27 09:25 | Outpatient (BNVA) | payer MEDICARE, SELFPAY | PROVIDERS: PCP Internal Medicine; Visit Provider Physician Assistant Medical | DX: E11.29 Type 2 diabetes mellitus with other diabetic kidney complication (principal); I10 Essential (primary) hypertension; E78.5 Hyperlipidemia, unspecified | CPT/HCPCS: 82947; 99212 ==

== ENCOUNTER 2025-03-29 13:32 | Outpatient (REF) | payer MEDICARE, SELFPAY ==
[2025-03-29 16:20] LABS: Alanine Aminotransferase 18 U/L (0-40); Aspartate Amino Transferase 27 U/L (5-37); Cholesterol 151 mg/dL (<200); Estimated Glomerular Filt Rate > 60; HDL Cholesterol 38 mg/dL (>40); Triglycerides 168 mg/dL (<150)
[2025-03-29 16:51] LABS: Vitamin B12 358 pg/mL (200-900)
--- OUTSIDE RECORDS SUMMARY | 2025-03-29 17:10 | XMS_ITS ---
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 This is a 75 year old male who is an established patient who is being seen for an evaluation of skin lesions, located on the body throughout. The lesions have been present for years. He also presents for education and counseling about sun exposure, evaluation for suspicious growths, and evaluation of current nevi. His history is significant for actinic keratoses, basal cell skin cancer , and SCCIS. The pt reports multiple areas that he would like to have treated with LN2. 2. This is a 75 year old male who is an established patient being seen for a chief complaint of dryskin located on the face. The dry skin is flaking and leathery. The dry skin has been present for years. He bathes with bar soap , and he bathes 1 times per day. Pertinent negatives include: not using moisturizers, not using anti-bacterial soaps, and not bathing excessively. Medications Medication Generic Name RxNorm Strength Strength Unit Route Dose Dose Form Frequency Date Started Date Ended Status Indication Sig imiquimod imiquimo d 084976 5 % Topica l thin layer cream in packe t bid 05/22/20 24 active Appl y thin laye r to affe cted area on eric franki skin at bedt taisha Mond ay-F rida y x 6 week s amlodipine amlodipi ne 5 mg Oral 1 table t qd active dicyclomine dicyclom ine 10 mg Oral 1 capsu le prn active metformin metformi n 500 mg Oral 1 table t qd active simvastatin simvasta tin 10 mg Oral 1 table t qd active tadalafil 568297 5 mg Oral 1 table t qd active Novolog Mix 70-30FlexPe n U-100 insulin asp prt-insu radha aspart 100 unit/mL (70-30) Subcut aneous 1 Insul in Pen qd active Doxycycline Hyclate NULL 09/23/19 18 active Losartan Potassium NULL 18 suspend ed MetFORMIN HCl NULL 12/02/19 18 suspend ed Oseltamivir Phosphate NULL 18 active Simvastatin NULL 12/02/19 18 suspend ed Problems Problem Code Type Status Date of Diagnosis Date of Resolution History of neoplasm (situation) 689114778( SNOMED) Diagnosis active 03/28/2025 History of malignant neoplasm of skin (situation) 170709090( SNOMED) Diagnosis active 03/28/2025 Inflamed seborrheic keratosis (disorder) 147205734( SNOMED) Diagnosis active 03/28/2025 Hypertrophic condition of skin (disorder) 83944916(S NOMED) Diagnosis active 03/28/2025 Seborrheic keratosis (disorder) 115556360( SNOMED) Diagnosis active 03/28/2025 Melanocytic nevus of trunk (disorder) 347593332( SNOMED) Diagnosis active 03/28/2025 Hemangioma of skin and subcutaneous tissue (disorder) 304153451( SNOMED) Diagnosis active 03/28/2025 Disorder of pigmentation (disorder) 940137103( SNOMED) Diagnosis active 03/28/2025 Carcinoma in situ of penis (disorder) 10106624(S NOMED) Diagnosis active 03/28/2025 Carcinoma in situ of penis (disorder) 28555526(S NOMED) Diagnosis active 06/26/2024 Actinic keratosis (disorder) ( SNOMED) Diagnosis active 06/26/2024 Benign neoplasm of skin of face (disorder) 98896518(S NOMED) Diagnosis active 06/26/2024 Neoplasm of uncertain behavior of skin (disorder) 40533648(S NOMED) Diagnosis active 05/09/2024 Actinic keratosis (disorder) ( SNOMED) Diagnosis active 05/09/2024 History of neoplasm (situation) 638583574( SNOMED) Diagnosis active 05/09/2024 History of malignant neoplasm of skin (situation) 215908397( SNOMED) Diagnosis active 05/09/2024 Epidermoid cyst of skin (disorder) 815890692( SNOMED) Diagnosis active 05/09/2024 Scar conditions and fibrosis of skin (disorder) 113201982( SNOMED) Diagnosis active 05/09/2024 Melanocytic nevus of trunk (disorder) 894623350( SNOMED) Diagnosis active 05/09/2024 Seborrheic keratosis (disorder) 821634340( SNOMED) Diagnosis active 05/09/2024 Hemangioma of skin and subcutaneous tissue (disorder) 162407017( SNOMED) Diagnosis active 05/09/2024 Disorder of pigmentation (disorder) 067336133( SNOMED) Diagnosis active 05/09/2024 Actinic keratosis (disorder) ( SNOMED) Diagnosis active 04/13/2023 Inflamed seborrheic keratosis (disorder) 372865915( SNOMED) Diagnosis active 04/13/2023 History of neoplasm (situation) 733569557( SNOMED) Diagnosis active 04/13/2023 History of malignant neoplasm of skin (situation) 849907504( SNOMED) Diagnosis active 04/13/2023 Epidermoid cyst of skin (disorder) 441981989( SNOMED) Diagnosis active 04/13/2023 Scar conditions and fibrosis of skin (disorder) 430731172( SNOMED) Diagnosis active 04/13/2023 Melanocytic nevus of trunk (disorder) 382574667( SNOMED) Diagnosis active 04/13/2023 Seborrheic keratosis (disorder) 931712787( SNOMED) Diagnosis active 04/13/2023 Hemangioma of skin and subcutaneous tissue (disorder) 064528283( SNOMED) Diagnosis active 04/13/2023 Disorder of pigmentation (disorder) 075336521( SNOMED) Diagnosis active 04/13/2023 Actinic keratosis (disorder) ( SNOMED) Diagnosis active 07/28/2022 Asteatosis cutis (disorder) 91099995(S NOMED) Diagnosis active 07/28/2022 Actinic keratosis (disorder) ( SNOMED) Diagnosis active 03/24/2022 Anogenital warts (disorder) 100416961( SNOMED) Diagnosis active 03/24/2022 History of neoplasm (situation) 317107183( SNOMED) Diagnosis active 03/24/2022 History of malignant neoplasm of skin (situation) 707887345( SNOMED) Diagnosis active 03/24/2022 Epidermoid cyst of skin (disorder) 796153657( SNOMED) Diagnosis active 03/24/2022 Scar conditions and fibrosis of skin (disorder) 813897267( SNOMED) Diagnosis active 03/24/2022 Melanocytic nevus (disorder) 665967385( SNOMED) Diagnosis active 03/24/2022 Seborrheic keratosis (disorder) 060649224( SNOMED) Diagnosis active 03/24/2022 Hemangioma of skin and subcutaneous tissue (disorder) 394644928( SNOMED) Diagnosis active 03/24/2022 Disorder of pigmentation (disorder) 484329533( SNOMED) Diagnosis active 03/24/2022 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) Diagnosis active 07/27/2019 Anogenital (venereal) warts A63.0(ICD- 10) Diagnosis active 07/27/2019 Inflamed seborrheic keratosis L82.0(ICD- 10) Diagnosis active 07/27/2019 Neoplasm of uncertain behavior of other specified male genital organs D40.8(ICD- 10) Diagnosis active 06/29/2019 Actinic keratosis L57.0(ICD- 10) Diagnosis active 06/29/2019 Anogenital (venereal) warts A63.0(ICD- 10) Diagnosis active 06/29/2019 Personal history of other malignant neoplasm of skin Z85.828(IC D-10) Diagnosis active 06/29/2019 Scar conditions and fibrosis of skin L90.5(ICD- 10) Diagnosis active 06/29/2019 Other seborrheic keratosis L82.1(ICD- 10) Diagnosis active 06/29/2019 Melanocytic nevi, unspecified D22.9(ICD- 10) Diagnosis active 06/29/2019 Other melanin hyperpigmentation L81.4(ICD- 10) Diagnosis active 06/29/2019 Melanocytic nevus of skin (disorder) 154088993( SNOMED) Diagnosis active 06/01/2018 History of malignant neoplasm of skin (situation) 132088997( SNOMED) Diagnosis active 12/01/2017 Surgical follow-up (finding) 885030950( SNOMED) Diagnosis active 10/06/2017 Basal cell carcinoma of face (disorder) 094485820( SNOMED) Diagnosis active 09/22/2017 Basal cell carcinoma of face (disorder) 415307401( SNOMED) Diagnosis active 09/01/2017 Benign neoplasm of skin of trunk (disorder) 46571224(S NOMED) Diagnosis active 07/21/2017 Increased blood pressure (finding) 13152313(S NOMED) Problem active Hypercholesterolemia (disorder) 98152252(S NOMED) Problem active Actinic keratosis (disorder) 233333847( SNOMED) Problem active Basal cell carcinoma of skin (disorder) 524672438( SNOMED) Problem active Squamous cell carcinoma (disorder) 127849901( SNOMED) Problem active Benign prostatic hyperplasia (disorder) 884748839( SNOMED) Problem active Diabetes mellitus (disorder) 28708895(S NOMED) Problem active Results No data Encounters Service provided at [facility], [address] [place] [address], [address], [place], [place] [id number]. Office phone number is [phone]. Office fax number is [phone]. Encounter Diagnosis Location Date / Time Type History of Squamous Cell Car cinoma in situ (Z86.007)History of Basal Cell Carcinoma (Z85.828)Irritated Seborrheic Keratosis (L82.0)Skin Tags (L91.8)Seborrheic Keratoses (L82.1)Intradermal Nevus (D22.5)Stucco Keratoses (L82.1)Franco Angiomas (D18.01)Lentigines (L81.4)Squamous Cell Carcinoma in situ (D07.4) [facility] 03/28/2025 13:00:00 [facility] [id number] Reason For Referral No data Procedures Procedure Date Documentation of current medications (pr ocedure) 03/28/2025 12:00 am UTC Cryotherapy of skin lesion with liquid n itrogen (procedure) 03/28/2025 12:00 am UTC Shave biopsy (procedure) 05/09/2024 12:0 0 am UTC Destruction of premalignant skin lesion (procedure) 05/09/2024 12:00 am UTC Cryotherapy of skin lesion with liquid n itrogen (procedure) 04/13/2023 12:00 am UTC Cryotherapy of skin lesion with liquid n itrogen (procedure) 03/24/2022 12:00 am UTC Documentation of past medical history (p rocedure) Documentation of past medical history (p rocedure) Documentation of past medical history (p rocedure) Documentation of past medical history (p rocedure) Documentation of past medical history (p rocedure) Documentation of past medical history (p rocedure) Documentation of past medical history (p rocedure) Documentation of past medical history (p rocedure) Documentation of past medical history (p rocedure) null Review Of Systems Provider reviewed on Mar 28, 2025.A complete review of systems was performed.No Problems With Healing, No Problems With Scarring (hypertrophic Or Keloid), No Problems With Bleeding, No Immunosuppression, No Hay Fever, No Chest Pain, No Fever Or Chills, No Night Sweats, No Unintentional Weight Loss,No Thyroid Problems, No Sore Throat, No Blurry Vision, No Abdominal Pain, No Bloody Stool, No Bloody Urine, No Joint Aches, No Muscle Weakness, No Neck Stiffness, No Headaches, No Seizures, No Shortness Of Breath, No Wheezing, No Anxiety, And No Depression. Assessment 1.History of Squamous Cell Carcinoma in situCounseling2.History of Basal Cell CarcinomaReassurance3.Irritated Seborrheic KeratosisCounselingLiquid Nitrogen: left elbow; sternum.4.Skin TagsCounselingAdditional Notes5.Seborrheic KeratosesCounseling6.Intradermal NevusCounseling7.Stucco KeratosesCounsel ing8.Franco AngiomasCounseling9.NwnetgdymqMcnwypljab33.Squamous Cell Carcinoma in situ, Status: Resolved - Biopsy confirmed 05/09/24CounselingPrescription Medication Management: Plan - Previous: Patient was able to get imiquimod and has been using for about 3 weeks with anticipated reaction. Reviewed to continue treatment, 6 weeks in total.; Continue Regimen - Imiquimod apply thin layer 5 days per week x 6 weeks (3 weeks in). Plan of Care Future visit for 12/05/2025 - Follow up in 9 months for: Skin Check. Other Instructions: 10CSE. Other Instructions: 10CSE. Code Detail Instructions [id number] imiquimod 5 % topical cream pack et Apply thin layer to affected area on genital skin at bedtime Wednesday-Wednesday x 6 weeks 942854 imiquimod 5 % topical cream pack et Apply thin layer to affected area on genital skin at bedtime Wednesday-Wednesday x 6 weeks Instructions * I counseled the patient regarding the following:Instructions: Neoplasms of Uncertain Behavior can be observed, biopsied or surgically removed depending on the level of clinical suspicion.Contact Office if: patient develops any new lesions that fail to heal, ulcerate or bleed. * I counseled the patient regarding the following:Skin Care: Irritated Seborrheic Keratoses can be removed with cryotherapy.Expectations: Irritated Seborrheic Keratoses are benign growths that become inflamed, itchy, tender, traumatized, caught on clothing, or exhibit bleeding or crusting. Because they symptomatic, they can be treated with cryotherapy. * I counseled the patient regarding the following:Skin Care: Skin tags can be removed surgically or with liquid nitrogen.Expectations: Acrochordons are benign skin growths usually found around the neckor the armpits. Sometimes, they get caught on clothing or jewelry and get inflamed. * I counseled the patient regarding the following:Skin Care: Seborrheic Keratoses are benign. No treatment is necessary.Expectations: Seborrheic Keratoses are benign warty growths. Patients get more ofthem with time. * I counseled the patient regarding the following:Instructions: Monthly self- skin checks to monitor for any changes in moles are recommended. Asymmetry, boarder irregularity, multiple colors in one lesion, diameter >6 mm, and evolution are risk factors of abnormal moles and melanoma.Contact Officeif: Any moles change in size, shape or color; itch, burn or bleed. * I counseled the patient regarding the following:Skin Care: Seborrheic Keratoses are benign. No treatment is necessary.Reassurance provided. These are benign warty growths. They are hereditary and most patients get more of them as they age. No treatment is necessary unless they are symptomatic. * I counseled the patient regarding the following:Skin Care: Franco Angiomas can resolve with lasers or electrodesiccation.Expectations: Franco Angiomas are benign vascular growths. No treatment is necessary. * I counseled the patient regarding the following:Lentigines can be prevented or improved by aggressive photoprotection with broad spectrum sun screen of SPF 30-50. They are benign. 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 It is easily treatable. 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
--- OUTSIDE RECORDS SUMMARY | 2025-03-29 17:10 | XMS_ITS | Patient Health Record ---
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 Name Role Phone Shai CRUZ, Rochelle Primary [...] Risk Notes Problem Change in bowel habit ([id number]) Change in bowel habits (R19.4) Active confirmed Plan Of Treatment No Information Insurance Providers Payer Name Payer Address Payer Phone Subscriber Number Group Number Insured Name Patient Relationship to Insured Coverage Start Date Coverage End Date MEDICARE OF [place] [address] [place] [address] [id number] DELFINO CHEW Self - patient is the insured Medical (General) History Medical History History ICD Code diabetes mellitus hypertension elevated cholesterol Surgical History Surgery Date(Month/Year) appendectomy
== END 2025-03-29 13:33 | disposition home or self-care (01) ==
LOC: HO.HMGCLDS 13:32
PROVIDERS: PCP Internal Medicine; Visit Provider Physician Assistant Medical
DX: E11.42 Type 2 diabetes mellitus with diabetic polyneuropathy (principal); E78.5 Hyperlipidemia, unspecified; I10 Essential (primary) hypertension; Z79.4 Long term (current) use of insulin; Z91.89 Other specified personal risk factors, not elsewhere classified
CPT/HCPCS: 36415; 80061; 82565; 82607; 84450; 84460

== ENCOUNTER 2025-04-11 11:21 | Outpatient (AMB) | payer MEDICARE, SELFPAY ==
--- NOTE | 2025-04-11 11:37 | A.OFFVIS_ITS ---
Intake Visit Reasons: 6m/testo labs Intake Note: Patient is Present for Follow Up Urology Medication: Tadalafil Antibiotic Allergies: None Blood Thinners: Aspirin Accompanied by: Self / Same As Patient Allergies lisinopril Allergy (Unknown, Verified 04/11/25 11:42) lip swelling and cough, dizzy HPI Comments Details: Davin is a pleasant male.? He is a patient of Dr. Gibbons. He is seen for the following urologic conditions - testicular swelling - lower urinary tract symptoms Six-month follow-up Follow-up for daily tadalafil PVR 0 cc Glucose 3+ on metformin, Humalog, Trulicity Testosterone borderline Testosterone - 08/02 400, 09/05 357 Six-month follow-up Lower urinary tract symptoms Current medications tadalafil 5 mg daily Prior medications alfuzosin Comorbidities include diabetes Bladder ultrasound 09/02 50 cc residual, 350cc PSA 09/01 0.8, 11/03 0.7 Testicular/Scotal orchalgia-swelling:? Prior testicular pain left side is ? Can continue using meloxicam on Celebrex as needed for his pain. ? Primary complaint of swelling, left, testicle(s). ? The symptoms started or were observed: Ongoing. ? Imaging includes testicular ultrasound - left mild hydrocele with epididymitis. ? Character of the pain is chronic. ? Based on imaging and exam diagnosis is most consistent with epididymitis. ? Prior therapy(ies) include use of anti-inflammatories PFSH Medical History Personal history of nicotine dependence Peripheral arterial disease Chest discomfort Intermittent palpitations Hx of skin malignancy Essential (primary) hypertension Vitamin D deficiency, unspecified Dyslipidemia, goal LDL below 100 Proteinuria, unspecified Type 2 diabetes mellitus with other diabetic kidney complication (~2009) Type 2 diabetes mellitus with diabetic polyneuropathy (~2009) Surgical History History of colonoscopy History of esophagogastroduodenoscopy (EGD) History of left inguinal hernia repair History of appendectomy History of squamous cell carcinoma excision Family History Father No problems noted. Mother Diabetes Social History Household Members: Family Household Members Other:: Daughter Housing: House Patient Tobacco Use Status: Current someday Tobacco user Tobacco use type: Cigarette Years Smoked: (Onset 16yo, 1ppd x 55yrs, 50pyh, quit 2019) e-Cigarette/Vaping Use: Never Used Current occupational status: employed Cognitive needs: Yes Hearing needs: No Vision needs: No Results AMB Urinalysis, Automated UA Leukoctes 0 Teresita/uL Last Edit by TED Concepcion on 04/11/25 11:49 UA Nitrite Negative Last Edit by TED Concepcion on 04/11/25 11:49 UA Urobilinogen 0.2 mg/dL Last Edit by TED Concepcion on 04/11/25 11:4 9 UA Protein 15 mg/dL Last Edit by TED Concepcion on 04/11/25 11:49 UA pH 5.5 Last Edit by TED Concepcion on 04/11/25 11:49 UA Blood 0 Papi/uL Last Edit by TED Concepcion on 04/11/25 11:49 UA Specific Marion 1.015 Last Edit by TED Concepcion on 04/11/25 11: 49 UA Ketone Negative Last Edit by TED Concepcion on 04/11/25 11:49 UA Bilirubin 0 mg/dL Last Edit by TED Concepcion on 04/11/25 11:49 UA Glucose 1000 mg/dL Last Edit by TED Concepcion on 04/11/25 11:49 Results Reviewed Results Reviewed: Laboratory Last Values Urine pH (Auto) 5.5 04/11/25 11:48 Specific Marion (Auto) 1.015 04/11/25 11:48 Urine Protein (Auto) 15 mg/dL 04/11/25 11:48 Glucose (UA)(Auto) 1000 mg/dL 04/11/25 11:48 Urine Ketones (Auto) Negative 04/11/25 11:48 Urine Blood (Auto) 0 Papi/uL 04/11/25 11:48 Urine Nitrite (Auto) Negative 04/11/25 11:48 Urine Bilirubin (Auto) 0 mg/dL 04/11/25 11:48 Urine Urobilinogen (Auto) 0.2 mg/dL 04/11/25 11:48 Leukocyte Esterase (Auto) 0 Teresita/uL 04/11/25 11:48 Assessment & Plan Assessment & Plan Orders: Orders Testosterone, Free/Total 5 Months - Type 2 diabetes mellitus with other specified complication, N52.1 - Erectile dysfunction due to diseases classified elsewhere Lutenizing Hormone 5 Months - Type 2 diabetes mellitus with other specified complication, N52.1 - Erectile dysfunction due to diseases classified elsewhere AMB Urinalysis Automated Today Z13.9 - Encounter for screening, unspecified Medications: New tadalafil [id number] [facility] GroupGDRX Member [id number] 20 mg PO 1XD PRN 30 tabs 1RF sexual activity 30 days - Type 2 diabetes mellitus with other specified complication, N52.1 - Erectile dysfunction due to diseases classified elsewhere Refilled tadalafil 5 mg PO DAILY 90 tabs 1RF novturia 90 days R35.1 - Nocturia Coding
--- OUTSIDE RECORDS SUMMARY | 2025-04-11 14:33 | XMS_ITS | Patient Health Record ---
Author Organization [facility] Address [address] [place] [id number] Care Team Providers Care Video Conference Specialist Name Role Phone Shai CRUZ, Rochelle Primary Care Provider Santo Wyatt Jr Jarod Unavailable [phone] Reason For Referral No Information Medications Medication [...] Risk Notes Problem Change in bowel habit ([id number]) Change in bowel habits (R19.4) Active confirmed Plan Of Treatment No Information Insurance Providers Payer Name Payer Address Payer Phone Subscriber Number Group Number Insured Name Patient Relationship to Insured Coverage Start Date Coverage End Date MED[employer]ARE OF [employer] [address] [place] [address] [id number] DELFINO CHEW Self - patient is the insured Medical (General) History Medical History History ICD Code diabetes mellitus hypertension elevated cholesterol Surgical History Surgery Date(Month/Year) appendectomy
== END 2025-04-11 12:33 | disposition home or self-care (01) ==
LOC: HO.HUSH 11:22
PROVIDERS: PCP Internal Medicine; Visit Provider Urology
DX: Z13.9 Encounter for screening, unspecified (principal)

== ENCOUNTER → 2025-04-11 11:21 | Outpatient (BNVA) | payer MEDICARE, SELFPAY | PROVIDERS: PCP Internal Medicine; Visit Provider Urology | DX: N32.0 Bladder-neck obstruction (principal); E11.69 Type 2 diabetes mellitus with other specified complication; N52.1 Erectile dysfunction due to diseases classified elsewhere; N50.812 Left testicular pain | CPT/HCPCS: 81003; 99212 ==

== ENCOUNTER 2025-05-08 15:26 | Outpatient (AMB) | payer MEDICARE, SELFPAY ==
[2025-05-08 15:27] VITALS: BP 154/62; PULSE 91; O2SAT 99; BMI 31.5
--- NOTE | 2025-05-08 15:27 | MHC.OFFVIS ---
Vital Signs 05/08/25 15:27 Height 6 ft Weight 232 lb 2.348 oz BMI 31.5 BP 154/62 H Blood Pressure Location Lt brachial Position Sitting Pulse 91 Pulse Source Pulse Oximeter Pulse Oximetry (%) 99 Oxygen Delivery Method Room Air Intake Visit Reasons: Type II diabetes Intake Note: Patient present today to follow up on Type 2 Diabetes Mellitus. 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: No Accompanied by: Self / Same As Patient Allergies lisinopril Allergy (Unknown, Verified 05/08/25 15:31) lip swelling and cough, dizzy Medication List - Last Reconciled 05/08/25 by RANDY Lombardi amlodipine 10 mg PO DAILY aspirin (Adult Low Dose Aspirin) 81 mg PO DAILY blood sugar diagnostic ([facility] Ver[facility] test strips) As directed 4 times a day blood-glucose meter ([employer] Verio Flex Start kit) As directed to test blood glucose two times a day dicyclomine 20 mg PO QID insulin lispro protamin-lispro 100 unit/mL (75-25) (Humalog Mix 75-25 KwikPen) 50 units bid lancets ([facility]ica Lancets) As directed twice a day losartan 100 mg PO DAILY metformin ER 500 mg PO BID 30 days omega-3 fatty acids (Fish Oil Concentrate) 1,000 mg PO DAILY pen needle, diabetic (BD Delmy 2nd Gen Pen Needle) twice daily simvastatin 20 mg PO BEDTIME tadalafil 5 mg PO DAILY 90 days tadalafil 20 mg PO 1XD PRN 30 days tirzepatide (Mounjaro) 2.5 mg (0.5 mL) subcut QWEEK HPI Comments Details: This is a 75-year-old male with a past medical history of peripheral arterial disease, hypertension, hyperlipidemia, type 2 diabetes and vitamin-D deficiency presenting for diabetic management. He was diagnosed with diabetes around 2009. Hemoglobin a1c 9.9% today. Current medication regimen: Ozempic 0.5 mg weekly Humalog mix 75/25 48 units in the morning and 48 units in the evening Metformin extended release 500 mg once daily (higher dosage causes diarrhea) Patient endorses indigestion and nausea since increasing the dose of Ozempic. I reviewed his glucometer data for the past 2 weeks. He is in range 33% of the time, highest blood sugar 444, lowest 98, average glucose 241. Past medication: Trulicity discontinued due to injection site reaction (pain and itching at the site) Complications: Nephropathy (microalbuminuria), neuropathy, peripheral arterial disease Evaluated by Dr. Olsen. He is on simvastatin. He is on amlodipine and losartan for renal protection and hypertension. Blood pressures have been high. He is taking the medications. Denies hypoglycemia. He is still drinking Coca-Cola daily. ROS: Constitutional: No fevers or chills Respiratory: No shortness of breath. Cardiovascular: No chest pain Gastrointestinal: No vomiting or abdominal pain. No diarrhea. No blood in stools. Endorses indigestion and nausea. Neurologic: Endorses numbness and tingling in the feet. Physical exam: Constitutional: Alert, in no distress. Neck: Supple, Full range of motion. No lymphadenopathy. No palpable thyroid masses. Respiratory: Clear to auscultation. Cardiovascular: S1 S2 regular. No murmurs PFSH Medical History Personal history of nicotine dependence Peripheral arterial disease Chest discomfort Intermittent palpitations Hx of skin malignancy Essential (primary) hypertension Vitamin D deficiency, unspecified Dyslipidemia, goal LDL below 100 Proteinuria, unspecified Type 2 diabetes mellitus with other diabetic kidney complication (~2009) Type 2 diabetes mellitus with diabetic polyneuropathy (~2009) Surgical History History of colonoscopy History of esophagogastroduodenoscopy (EGD) History of left inguinal hernia repair History of appendectomy History of squamous cell carcinoma excision Family History Father No problems noted. Mother Diabetes Social History Household Members: Family Household Members Other:: Daughter Housing: House Patient Tobacco Use Status: Current someday Tobacco user Tobacco use type: Cigarette Years Smoked: (Onset 16yo, 1ppd x 55yrs, 50pyh, quit 2018) e-Cigarette/Vaping Use: Never Used Current occupational status: employed Cognitive needs: Yes Hearing needs: No Vision needs: No Physical Exam Vital Signs: Last Vital Signs Pulse 91 05/08/25 15:27 BP 154/62 H 05/08/25 15:27 Pulse Ox 99 05/08/25 15:27 Oxygen Delivery Method Room Air 05/08/25 15:27 BMI result Body Mass Index 31.5 Results AMB Hemoglobin A1c AMB Hemoglobin A1c 9.9 % Last Edit by TED Montaño on 05/08/25 15:43 Results Reviewed Results Reviewed: Laboratory Last Values Glucose (Clinic) 173 mg/dL (60-115) H 05/08/25 15:34 Laboratory Tests 03/29/25 13:35 Creatinine 1.15 Estimated GFR > 60 AST 27 ALT 18 Triglycerides 168 H Cholesterol 151 LDL Cholesterol, Calc 80 HDL Cholesterol 38 L Vitamin B12 358 Assessment & Plan Assessment & Plan (1) Type 2 diabetes mellitus with other diabetic kidney complication: Onset Date: ~2009 Code(s): E11.29 - Type 2 diabetes mellitus with other diabetic kidney complication Category: Medical Plan: In summary this is a 74-year-old male with uncontrolled type 2 diabetes. Increase Humalog mix 75/25 50 units twice daily. Continue metformin extended release 500 mg daily. He does not tolerate higher dosages due to diarrhea. Stop Ozempic due to side effects of nausea and indigestion. Start Mounjaro 2.5 mg weekly. Side effects reviewed. He declines SGLT2 and Acarbose-discussed with him today. Advised patient he needs to work on diet and exercise. He needs to stopped drinking Coca-Cola. He needs to follow a diabetic diet that is low in carbohydrates and sugars. Reviewed treatment of hypoglycemia with the patient. (2) Essential (primary) hypertension: Code(s): I10 - Essential (primary) hypertension Category: Medical Plan: Recommended decreasing caffeine and sodium in his diet. I took the liberty of increasing amlodipine from 5 to 10 mg daily. Continue losartan 100 mg daily. (3) Dyslipidemia, goal LDL below 100: Code(s): E78.5 - Hyperlipidemia, unspecified Category: Medical Plan: He is treated with a statin. LDL is less than 100. Plan Follow up in 4-6 weeks for type 2 diabetes. Orders: Orders AMB Hemoglobin A1c Today E11.42 - Type 2 diabetes mellitus with diabetic polyneuropathy, Z13.9 - Encounter for screening, unspecified, Z79.4 - [facility] (current) use of insulin Medications: New tirzepatide (Mounjaro) for 4 weeks 2.5 mg (0.5 mL) subcut QWEEK 2 mL 0RF amlodipine 10 mg PO DAILY 90 tabs 0RF Changed From Humalog Mix 75-25 KwikPen 100 unit/mL (75-25) (insulin lispro protamin-lispro) 48 units bid 90 days 99 mL 3RF NS To insulin lispro protamin-lispro 100 unit/mL (75-25) (Humalog Mix 75-25 KwikPen) 50 units bid Discontinued amlodipine Discontinued Reason: Doctor's Order 5 mg PO QPM 90 tabs 3RF semaglutide (Ozempic) for 4 weeks Discontinued Reason: Doctor's Order 0.5 mg (0.736 mL) subcut QWEEK 3 mL 0RF Patient Instructions: Increase Amlodipine to 10 mg daily. Increase Humalog mix 75/25 50 units twice daily. Continue metformin extended release 500 mg daily. Stop Ozempic. Start Mounjaro 2.5 mg weekly. If you experience low blood sugar, treat this by eating a chewable fruit candy like skittles or jelly beans (about 8 pieces), 4 ounces (1/2 cup) of fruit juice (not diet), 1 tablespoon of honey or 4 glucose tablets. If your blood sugar is under 50, take double the amount of one of the above. Recheck your blood sugar in 15 minutes. Coding Level of Care Code Est Pt Level 4 (10900) Complex visit Add On G2211 Diagnoses Type 2 diabetes mellitus with other diabetic kidney complication E11.29 Essential (primary) hypertension I10 Dyslipidemia, goal LDL below 100 E78.5
[2025-05-08 15:37] LABS: Glucose, Whole Blood 173 mg/dL (60-115)
--- OUTSIDE RECORDS SUMMARY | 2025-05-08 19:01 | XMS_ITS | Patient Health Record ---
Author Organization [facility] Address [address] [place] [id number] Care Team Providers Care House Carpenter Helper Name Role Phone Rochelle Gibbons MD Primary Care Provider Jarod Mcfarlane Jr Unavailable Reason For Referral No Information Medications Medication SIG (Take, Route, Frequency, Duration) Notes Start Date End Date Status Aspirin 81 81 MG Tablet Chewable 1 tablet Orally Once a day; Duration: 30 day(s) Active Fish Oil 1000 MG Capsule 1 capsule Orall y Once a day; Duration: 30 day(s) Active Colyte with Flavor Packs 240 GM Solution Reconstituted As directed Orally Over the specified time.; Duration: 1 day(s) 07/07/2018 Active Losartan Potassium 25 MG Tablet TAKE 1 TABLET BY MOUTH EVERY DAY Oral; Duration: 90 Active Simvastatin 20 MG Tablet TAKE 1 TABLET B Y MOUTH EVERY DAY IN THE EVENING Oral; Duration: 90 Active metFORMIN HCl 1000 MG Tablet TAKE 1 TABL ET BY MOUTH TWICE A DAY TWICE A DAY Oral; Duration: 90 Active Immunizations Vaccine Route Administration Date Status Comme nts Influenza Unknown 02/12/2018 Administered Social History Tobacco Use: Social History Observation Description Date Details (start date - stop date) Current Smoker NA - NA Social History Drugs/Alcohol: Social Info Question Answer Notes Alcohol Screen Did you have a drink containing alcohol in the past year? No Points 0 Interpretation Negative Tobacco Use: Social Info Question Answer Notes Tobacco Use/Smoking Patient is a current smoker How often do you smoke cigarettes? every day How many cigarettes a day do you smoke? 21-30 Additional Details Category Social Info Options Details Miscellaneous: Marital status: Occupation: working Problems Problem Type SNOMED Code ICD Code Onset Dates Problem Status W/U Status Risk Notes Problem Change in bowel habit (91025038) Change in bowel habits (R19.4) Active confirmed Plan Of Treatment No Information Insurance Providers Payer Name Payer Address Payer Phone Subscriber Number Group Number Insured Name Patient Relationship to Insured Coverage Start Date Coverage End Date MEDICARE OF [employer] [address] [place] [id number] DELFINO CHEW Self - patient is the insured Medical (General) History Medical History History ICD Code diabetes mellitus hypertension elevated cholesterol Surgical History Surgery Date(Month/Year) appendectomy
== END 2025-05-08 16:07 | disposition home or self-care (01) ==
LOC: HO.ENCR 15:26
PROVIDERS: PCP Internal Medicine; Visit Provider Physician Assistant Medical
DX: Z13.9 Encounter for screening, unspecified (principal); E11.42 Type 2 diabetes mellitus with diabetic polyneuropathy; Z79.4 Long term (current) use of insulin; E11.29 Type 2 diabetes mellitus with other diabetic kidney complication; I10 Essential (primary) hypertension; E78.5 Hyperlipidemia, unspecified

== ENCOUNTER → 2025-05-08 15:26 | Outpatient (BNVA) | payer MEDICARE, SELFPAY | PROVIDERS: PCP Internal Medicine; Visit Provider Physician Assistant Medical | DX: E11.42 Type 2 diabetes mellitus with diabetic polyneuropathy (principal); E78.5 Hyperlipidemia, unspecified; I10 Essential (primary) hypertension | CPT/HCPCS: 82947; 83036; 99212 ==